=== PATIENT | male | born 1965 | race Hispanic/Latino ===

== ENCOUNTER 2019-02-04 12:44 | Inpatient (IN) | payer MEDICARE ==
[2019-02-04] MEDS ORDERED: NITROSTAT SL ONE (13:08)
[2019-02-04] MEDS ORDERED: BABY ASPIRIN PO ONE (13:08)
[2019-02-04] MEDS ORDERED: MORPHINE IV ONE ×2 (13:10→14:33)
--- NOTE | 2019-02-04 13:29 | Emergency Department Report ---
ED Chest Pain HPI - General Chief Complaint: Chest Pain Stated Complaint: CHEST PAIN Time Seen by Provider: 02/04/19 13:04 Source: patient, EMS Mode of arrival: Stretcher Limitations: No Limitations - History of Present Illness Initial Comments: Mr. Blake is a 53 yo male with hx of CHF and CAD s/p 3 vessel CABG December 2017 presents with chest pain for the past week. Normally, has chest pain once a month or so. Chest pain has been more frequent this week. NO relief with nitroglycerin. CABG performed at [facility]. He lives in [place], [place]. However, he is in the middle of divorce. He is currently staying with his sister who lives near our hospital. He has had cardiac catheterization since CABG. According to his report, no new blockages. But did develop congestive heart failure. No new swelling. I spoke with personal insole tape stitcher uco Dr. Alcides Steven per phone. He has not seen Mr. Blake since [address] PCP [address] Alcides Steven in [place], [place] Complaint: chest pain -: Gradual, week(s) (1) Onset: during rest, during exertion Pain Location: substernal Severity: moderate Severity scale (0 -10): 7 Quality: sharp Consistency: intermittent Improves With: nothing Worsens With: nothing re: nausea, vomting - Related Data Allergies Allergy/AdvReac Type Severity Reaction Status Date / Time No Known Allergies Allergy Unverified 02/04/19 13:02 Heart Score - HEART Score History: Slightly suspicious EKG: Non-specific Age: 45-65 Risk factors: > 3 risk factors or hx of atherosclerotic disease Troponin: < normal limit HEART Score: 4 ED Review of Systems ROS: Stated complaint: CHEST PAIN Other details as noted in HPI Comment: All other systems reviewed and negative Constitutional: denies: fever Eyes: denies: eye discharge Respiratory: denies: cough Cardiovascular: chest pain ED Past Medical Hx - Past Medical History Previous Medical History?: Yes Hx CVA: Yes Hx Congestive Heart Failure: Yes - Surgical History Past Surgical History?: Yes Additional Surgical History: OPEN HEART SURGERY 2018 - Social History Smoking Status: Never Smoker Substance Use Type: Marijuana ED Physical Exam - General Limitations: No Limitations General appearance: alert, in no apparent distress - Head Head exam: Present: atraumatic, normocephalic - Eye Eye exam: Present: normal appearance - ENT ENT exam: Present: mucous membranes moist - Neck Neck exam: Present: normal inspection - Respiratory Respiratory exam: Present: normal lung sounds bilaterally. Absent: respiratory distress, wheezes, rales, rhonchi - Cardiovascular Cardiovascular Exam: Present: regular rate, normal rhythm, other (sternotomy scar). Absent: systolic murmur, diastolic murmur, rubs, gallop - GI/Abdominal GI/Abdominal exam: Present: soft, normal bowel sounds. Absent: distended, tenderness, guarding, rebound - Rectal Rectal exam: Present: deferred - Extremities Exam Extremities exam: Present: normal inspection - Back Exam Back exam: Present: normal inspection - Neurological Exam Neurological exam: Present: alert, oriented X3 - Psychiatric Psychiatric exam: Present: normal affect, depressed - Skin Skin exam: Present: warm, dry, intact, normal color. Absent: rash ED Course Vital Signs 02/04/19 02/04/19 02/04/19 12:57 13:00 13:06 Temperature 99.8 F H Pulse Rate 89 91 H 87 Respiratory 14 13 20 Rate Blood Pressure 157/88 157/88 Blood Pressure [Right] O2 Sat by Pulse 99 98 97 Oximetry 02/04/19 02/04/19 02/04/19 13:12 13:15 13:30 Temperature 99.8 F H Pulse Rate 92 H 89 Respiratory 20 9 L 22 Rate Blood Pressure 153/93 159/93 Blood Pressure 157/88 [Right] O2 Sat by Pulse 98 Oximetry 02/04/19 02/04/19 02/04/19 13:45 14:00 14:15 Temperature Pulse Rate 88 90 91 H Respiratory 20 9 L 21 Rate Blood Pressure 143/83 147/93 160/98 Blood Pressure [Right] O2 Sat by Pulse 95 97 96 Oximetry 02/04/19 02/04/19 02/04/19 14:31 14:40 14:45 Temperature Pulse Rate 92 H 92 H 99 H Respiratory 13 31 H Rate Blood Pressure 174/101 174/104 178/95 Blood Pressure [Right] O2 Sat by Pulse 98 98 Oximetry 02/04/19 15:00 Temperature Pulse Rate 92 H Respiratory Rate Blood Pressure 189/92 Blood Pressure [Right] O2 Sat by Pulse Oximetry ED Medical Decision Making - Lab Data Result diagrams: 02/04/19 13:27 02/04/19 13:27 Laboratory Results - last 24 hr 02/04/19 02/04/19 13:27 13:27 WBC 9.9 RBC 4.97 Hgb 14.1 Hct 41.5 MCV 84 MCH 28 MCHC 34 RDW 14.4 Plt Count 313 Lymph % (Auto) 13.8 Montgomery % (Auto) 4.8 Eos % (Auto) 0.3 Baso % (Auto) 1.0 Lymph # 1.4 Montgomery # 0.5 Eos # 0.0 Baso # 0.1 Seg Neutrophils % 80.1 H Seg Neutrophils # 7.9 H Sodium 143 Potassium 4.0 Chloride 103.3 Carbon Dioxide 23 Anion Gap 21 BUN 11 Creatinine 1.0 Estimated GFR > 60 BUN/Creatinine Ratio 11 Glucose 93 Calcium 9.3 Troponin T < 0.010 - EKG Data 02/04/19 13:30 EKG obtained 1304 Normal sinus rhythm rate 90 beats a minute normal axis nonspecific T wave pattern right bundle branch block prolonged QT interval - Radiology Data Radiology results: image reviewed interpreted by me: No acute process on my interpretation - Medical Decision Making Mr. Blake presents with chest pain, severe. DDX: ACS, stress reaction due to recent divorce. Admitted to depressed mood. Denies suicidal ideation. Has been living with sister for past 3 weeks. I highly appreciate the assistance of the cardiology and hospitalist teams who agreed to continue treatment and evaluation on inpatient unit. Admitted in stable condition. Critical care attestation.: If time is entered above; I have spent that time in minutes in the direct care of this critically ill patient, excluding procedure time. ED Disposition Clinical Impression: Acute coronary syndrome, Hypertensive urgency Disposition: OP ADMIT IP TO THIS HOSP Is pt being admited?: Yes Does the pt Need Aspirin: No Condition: Stable
[2019-02-04 13:40] LABS: Basophils # (Auto) 0.1 K/mm3 (0.0-0.1); Eosinophils % (Auto) 0.3 % (0.0-4.3); Hematocrit 41.5 % (35.5-45.6); Hemoglobin 14.1 gm/dl (11.8-15.2); Lymphocytes # (Auto) 1.4 K/mm3 (1.2-5.4); Lymphocytes % (Auto) 13.8 % (13.4-35.0); Mean Corpuscular HGB Conc 34 % (32-34); Mean Corpuscular Volume 84 fl (84-94); Monocytes # (Auto) 0.5 K/mm3 (0.0-0.8); Monocytes % (Auto) 4.8 % (0.0-7.3); Platelet Count 313 K/mm3 (140-440); Red Blood Count 4.97 M/mm3 (3.65-5.03); Red Cell Distribution Width 14.4 % (13.2-15.2)
[2019-02-04 14:01] LABS: BUN/Creatinine Ratio 11; Blood Urea Nitrogen 11 mg/dL (9-20); Calcium 9.3 mg/dL (8.4-10.2); Hemolysis Index 7
[2019-02-04] MEDS ORDERED: NITRO-BID 2% TP ONE (14:33)
[2019-02-04] MEDS ORDERED: LOPRESSOR IV ONE (14:48)
--- NOTE | 2019-02-04 15:59 | Consultation ---
History of Present Illness Consult date: 02/04/19 Requesting physician: TOSHA BROWN Consult reason: chest pain History of present illness: The pt is a 53 yo male with a past medical history of CAD s/p 3 vessel CABG December 2017, HTN, HF. He is previously unknown to our practice. He presents with c/o chest pain for the past week. He describes his chest pain as an i ntermittent left-sided pressure which radiates into his left arm. No clear aggravating or alleviating factors. NO relief with nitroglycerin. CABG performed at [facility]. He lives in [place], [place]. However, he is in the middle of divorce. He is currently staying with his sister who lives near our hospital. He has had cardiac catheterization since CABG. According to his report, no new blockages. But did develop congestive heart failure. No new swelling. Per chart, ED physician spoke to pt's personal horseradish maker Dr. Alcides Steven per phone - He has not seen Mr. Blake since 2017 prior to CABG. Past History Past Medical History: CAD, hypertension Past Surgical History: CABG Medications and Allergies Allergies Allergy/AdvReac Type Severity Reaction Status Date / Time No Known Allergies Allergy Unverified 02/04/19 13:02 Review of Systems Constitutional: no weight loss, no weight gain, no fever, no chills, no sweats Ears, nose, mouth and throat: no ear pain, no nose pain, no sinus pressure, no sinus pain Respiratory: no cough, no shortness of breath, no dyspnea on exertion, no congestion, no wheezing, no pain on inspiration Gastrointestinal: no abdominal pain, no nausea, no vomiting, no diarrhea, no constipation, no change in bowel habits Genitourinary Male: no dysuria, no hematuria, no flank pain, no discharge, no urinary frequency, no urinary hesitancy Musculoskeletal: no neck stiffness, no neck pain, no shooting arm pain, no arm numbness/tingling, no low back pain, no shooting leg pain Integumentary: no rash, no pruritis, no redness, no sores, no wounds Neurological: no head injury, no paralysis, no weakness, no parathesias, no numbness, no tingling Psychiatric: no anxiety Endocrine: no cold intolerance, no heat intolerance Hematologic/Lymphatic: no easy bruising, no easy bleeding Allergic/Immunologic: no urticaria, no wheezing Physical Examination Vital Signs Pulse Resp Pulse Ox 89 14 99 02/04/19 12:57 02/04/19 12:57 02/04/19 12:57 General appearance: no acute distress HEENT: Positive: PERRL, Normocephaly, Mucus Membranes Moist Neck: Positive: neck supple, trachea midline Cardiac: Positive: Reg Rate and Rhythm, S1/S2 Lungs: Positive: clear to auscultation Neuro: Positive: Grossly Intact Abdomen: Positive: Soft. Negative: Tender Skin: Negative: Rash, Wound Musculoskeletal: No Pain Extremities: Absent: edema Results 02/04/19 13:27 02/04/19 13:27 CBC 02/04/19 Range/Units 13:27 WBC 9.9 (4.5-11.0) K/mm3 RBC 4.97 (3.65-5.03) M/mm3 Hgb 14.1 (11.8-15.2) gm/dl Hct 41.5 (35.5-45.6) % Plt Count 313 (140-440) K/mm3 Lymph # 1.4 (1.2-5.4) K/mm3 Haskell # 0.5 (0.0-0.8) K/mm3 Eos # 0.0 (0.0-0.4) K/mm3 Baso # 0.1 (0.0-0.1) K/mm3 Comprehensive Metabolic Panel 02/04/19 Range/Units 13:27 Sodium 143 (137-145) mmol/L Potassium 4.0 (3.6-5.0) mmol/L Chloride 103.3 (98-107) mmol/L Carbon Dioxide 23 (22-30) mmol/L BUN 11 (9-20) mg/dL Creatinine 1.0 (0.8-1.5) mg/dL Glucose 93 (75-100) mg/dL Calcium 9.3 (8.4-10.2) mg/dL - Imaging and Cardiology Echo: pending EKG: report reviewed, image reviewed EKG interpretations - Telemetry EKG Rhythm: Sinus Rhythm - EKG Sinus rhythms and dysrhythmias: sinus rhythm Assessment and Plan Resume home cardiac regimen. Cont to trend Hammad. Pending Hammad remain negative for AMI overnight, plan for treadmill MPI stress test in AM. NPO after MN. Obtain echo. The patient has been seen in conjunction with Dr. Burrows who agrees with the assessment and plan of care. - Patient Problems (1) Chest pain Current Visit: Yes Status: Acute (2) CAD (coronary artery disease) Current Visit: Yes Status: Acute (3) S/P CABG (coronary artery bypass graft) Current Visit: Yes Status: Acute (4) Hypertensive urgency Current Visit: Yes Status: Acute (5) History of heart failure Current Visit: Yes Status: Chronic
--- NOTE | 2019-02-04 16:28 | History and Physical Report ---
History of Present Illness Chief complaint: My chest hurts, and I get headaches too History of present illness: 53 YO Male with HTN, CHF, CAD S/P CABG presents to ED for evaluation. Pt states that he has experienced pain in his chest over the past 1 week, with worsening symptoms over the past 1 day. Pt states that pain is 7/10, Intermittent, Substernal, Radiates to the left arm, Not worsened with exertion, not relieved with rest, associated with shortness of breath, nausea and diaphoresis, . Pt acknowledges decreased exercise tolerance. EMS notified, and upon arrival the patient was found to be in distress. Pt transported to [facility]. Pt seen and evaluated in ED and found to have symptoms consistent with Stable Angina, as well as Diastolic CHF. Pt admitted to telemetry. Cardiology consulted in ED. CT head ordered in ED and is pending at time of admission. Pt denies fever, chills, palpitations, trauma, skin rash, BRBPR, Unintentional weight loss, Night sweats, prolonged travel/immobility, unilateral leg swelling, calf pain, individual/family history of DVT/PE/Blood Clotting Disorders. No previous admissions to [facility]. No mediation listed at time of admission. Past History Past Medical History: CAD, hypertension Past Surgical History: CABG Social history: . denies: smoking, alcohol abuse, prescription drug abuse Family history: hypertension Medications and Allergies Allergies Allergy/AdvReac Type Severity Reaction Status Date / Time No Known Allergies Allergy Verified 02/04/19 16:38 Review of Systems Constitutional: no weight loss, no weight gain, no fever, no chills Ears, nose, mouth and throat: no ear pain, no ear discharge, no tinnitis, no decreased hearing, no nose pain, no nasal congestion Cardiovascular: chest pain, shortness of breath, dyspnea on exertion, high blood pressure, decreased exercise tolerance, no palpitations, no syncope, no lightheadedness Respiratory: no cough, no cough with sputum, no excessive sputum, no hemoptysis Gastrointestinal: nausea, no abdominal pain, no vomiting, no diarrhea Rectal: no pain, no incontinence Musculoskeletal: no neck stiffness, no neck pain, no shooting arm pain, no arm numbness/tingling Integumentary: no rash, no pruritis, no redness, no sores, no wounds Neurological: no head injury, no transient paralysis, no paralysis, no weakness, no parathesias, no numbness, no tingling Psychiatric: no anxiety, no memory loss, no change in sleep habits, no sleep disturbances, no insomnia, no hypersomnia, no change in appetite, no change in libido Endocrine: no cold intolerance, no heat intolerance, no polyphagia, no excessive thirst, no polydipsia, no polyuria, no nocturia Hematologic/Lymphatic: no easy bruising, no easy bleeding Allergic/Immunologic: no urticaria, no allergic rhinitis, no persistent infections, no anaphylaxis Exam - Constitutional Vitals: Temp Pulse Resp BP Pulse Ox 99.8 F H 92 H 31 H 189/92 98 02/04/19 13:15 02/04/19 15:00 02/04/19 14:45 02/04/19 15:00 02/04/19 14:45 General appearance: Present: mild distress - EENT Eyes: Present: PERRL ENT: hearing intact, clear oral mucosa - Neck Neck: Present: supple, normal ROM - Respiratory Respiratory effort: normal Respiratory: bilateral: CTA - Cardiovascular Heart Sounds: Present: S1 & S2. Absent: rub, click - Extremities Extremities: pulses symmetrical, No edema Peripheral Pulses: within normal limits - Abdominal General gastrointestinal: Present: soft, non-tender, non-distended, normal bowel sounds Male genitourinary: Present: normal - Integumentary Integumentary: Present: clear, warm, dry - Musculoskeletal Musculoskeletal: gait normal, strength equal bilaterally - Psychiatric Psychiatric: appropriate mood/affect, intact judgment & insight - Neurologic Neurologic: CNII-XII intact, moves all extremities Results - Labs CBC & Chem 7: 02/04/19 13:27 02/04/19 16:46 Labs: Abnormal lab results 02/04/19 Range/Units 13:27 Seg Neutrophils % 80.1 H (40.0-70.0) % Seg Neutrophils # 7.9 H (1.8-7.7) K/mm3 Assessment and Plan - Patient Problems (1) Angina at rest Current Visit: Yes Status: Acute Plan to address problem: Admit to telemetry, cardiology consulted in ED, stress test in AM, morphine, supplemental oxygen, nitro, aspirin, bnp, d dimer, (2) CHF (congestive heart failure) Current Visit: Yes Status: Suspected Qualifiers: Heart failure type: diastolic Heart failure chronicity: acute Qualified Code(s): I50.31 - Acute diastolic (congestive) heart failure Plan to address problem: Admit to telemetry: Strict I/O, daily weight, monitor uop q shift, BNP, D dimer, chest x ray, afterload reduction, Echo ordered and pending at time of admission, cardiology consulted. (3) HTN (hypertension) Current Visit: Yes Status: Acute Qualifiers: Hypertension type: essential hypertension Qualified Code(s): I10 - Essential (primary) hypertension Plan to address problem: monitor bp q shift, continue medical management. (4) CAD (coronary artery disease) Current Visit: Yes Status: Acute Qualifiers: Associated angina: with stable angina Plan to address problem: Lipid panel, statin therapy, low cholesterol diet, risk factor reduction (5) Headache Current Visit: Yes Status: Acute Qualifiers: Headache chronicity pattern: acute headache Intractability: not intractable Plan to address problem: CT head ordered, Pending at time of admission, neuro checks. (6) DVT prophylaxis Current Visit: Yes Status: Acute Plan to address problem: SCD to BLE while in bed.
[2019-02-04] MEDS ORDERED: ZOFRAN IV PRN (16:33)
[2019-02-04] MEDS ORDERED: SODIUM CHLORIDE FLUSH SYRINGE 10 ML IV PRN ×2 (16:33→16:35)
[2019-02-04] MEDS ORDERED: PROVENTIL IH PRN (16:33)
[2019-02-04] MEDS ORDERED: APRESOLINE IV PRN (16:42)
[2019-02-04 17:37] LABS: BUN/Creatinine Ratio 18; Blood Urea Nitrogen 14 mg/dL (9-20); Calcium 8.9 mg/dL (8.4-10.2); Hemolysis Index 22
[2019-02-04 17:47] LABS: Free T4 (Free Thyroxine) 1.03 ng/dL (0.76-1.46)
--- NOTE | 2019-02-04 18:19 | XRay Report ---
PROCEDURE: XR CHEST 1V AP TECHNIQUE: Single AP chest HISTORY: Chest Pain COMPARISONS: FINDINGS: Cardiac and mediastinal contours are unremarkable. Sternotomy wires are noted. No focal pulmonary inf iltrate identified. No pleural fluid collection seen. Pulmonary vasculature is unremarkable. IMPRESSION: No acute abnormality identified in the chest. This document is electronically signed by Ming Tam MD., February 04 2019 06:16:54 PM ET
--- NOTE | 2019-02-04 18:26 | Cat Scan Report ---
PROCEDURE: CT head without contrast. TECHNIQUE: Computerized tomography of the head was performed without contrast material. CT DOSE LENGTH PRODUCT: 1050.26 mGycm HISTORY: Headache. COMPARISONS: None. FINDINGS: The ventricles are normal in size. The mcdonough matter and white matter appear normal. There are no mass lesions. There is no intracranial hemorrhage. The calvarium appears intact. The mastoid air cells and visualized paranasal sinuses are well aerated. IMPRESSION: Normal study. This document is electronically signed by Farza Yeager MD., February 04 2019 06:24:15 PM ET
[2019-02-04] MEDS: MORPHINE IV PRN ×2 (19:47→23:51)
[2019-02-04] MEDS ORDERED: MORPHINE ONE (19:48)
[2019-02-04] MEDS: SODIUM CHLORIDE FLUSH SYRINGE 10 ML IV SCH (23:55)
[2019-02-05] MEDS: MORPHINE IV PRN ×4 (04:24→19:54)
[2019-02-05 06:36] LABS: Chol/HDL Ratio 4.91 %
[2019-02-05] MEDS ORDERED: LEXISCAN IV ONE ×2 (07:59→08:34)
[2019-02-05] MEDS: SODIUM CHLORIDE FLUSH SYRINGE 10 ML IV SCH ×2 (11:37→21:55)
--- NOTE | 2019-02-05 12:00 | Treadmill Report ---
PROCEDURE: Nuclear perfusion study. REASON FOR STUDY: Chest pain, shortness of breath. IMAGING PROTOCOL: The patient received 10 mCi of Technetium 99m Tetrofosmin for resting image and 28 mCi of Technetium 99m Tetrofosmin for stress imaging. The imaging for the whole procedure was completed 30-90 minutes following the initial injection of Technetium 99m Tetrofosmin. The SPECT imaging in the 180 degree arc was performed in the right anterior oblique projection. Computerized reconstruction of the images was performed for analysis. IMAGING RESULTS: Normal cavity size from stress to rest. Normal distribution of radionuclide in the anterior, inferior, septal, and apical regions. Gated SPECT, EF 62% with no wall motion abnormality. The patient infused Lexiscan with no EKG changes. The patient tried initially to walk, but stopped secondary to shortness of breath after just 2 minutes, but with no EKG changes or exaggerated BP. SUMMARY: 1. Negative Lexiscan EKG. 2. Poor exercise capacity. 3. Normal rest and stress myocardial perfusion scan. No significant ischemia. No wall motion abnormality. Gated SPECT, EF 62%. JOB# [id number] MARIO/MYA
--- NOTE | 2019-02-05 13:12 | Progress Note ---
Assessment and Plan Chest pain possible secondary GI Hypertension elevated Hyperlipidemia [place] breath with exertion Coronary disease status post bypass Recommended for cardiovascular point of view to restart beta tatyana will start aspirin and statin nitrates will give the patient also a Protonix as patient's chest pain may be secondary to GI if stable am and there and discharged Subjective Date of service: 02/05/19 Principal diagnosis: chest pain and sob Interval history: Patient's chest pain still present Objective Vital Signs Temp Pulse Resp BP BP Pulse Ox 02/05/19 11:32 77 166/89 02/05/19 10:04 163/90 02/05/19 10:02 181/88 02/05/19 10:00 192/93 02/05/19 09:58 192/101 02/05/19 09:57 147/94 02/05/19 09:56 179/90 02/05/19 09:46 165/88 02/05/19 08:11 97.7 F 77 20 166/89 96 02/05/19 05:08 98.0 F 72 18 150/89 97 02/04/19 23:51 20 02/04/19 23:45 98.0 F 77 18 166/87 99 02/04/19 21:33 97.8 F 76 18 163/92 95 02/04/19 20:41 79 02/04/19 20:21 75 19 132/74 95 02/04/19 20:11 73 14 133/77 97 02/04/19 20:01 76 20 133/77 94 02/04/19 19:51 81 21 144/84 96 02/04/19 19:41 79 18 143/82 96 02/04/19 19:37 97.9 F 02/04/19 19:30 79 19 143/82 96 02/04/19 19:15 98.2 F 91 H 16 143/75 134/79 98 02/04/19 19:00 85 23 133/81 96 02/04/19 18:45 85 23 133/81 95 02/04/19 18:30 85 24 135/74 95 02/04/19 18:15 95 H 18 152/78 97 02/04/19 18:00 89 17 143/77 97 02/04/19 17:45 99 H 16 143/85 94 02/04/19 17:30 74 16 143/85 97 02/04/19 17:15 80 14 151/87 95 02/04/19 17:00 76 17 151/87 97 02/04/19 16:45 73 13 160/82 94 02/04/19 16:30 76 12 155/87 96 02/04/19 16:15 81 24 148/87 96 02/04/19 16:00 71 13 149/93 96 02/04/19 15:45 83 17 132/78 96 02/04/19 15:31 80 20 136/76 96 02/04/19 15:15 77 9 L 166/91 96 02/04/19 15:00 77 16 153/94 97 02/04/19 14:45 99 H 31 H 178/95 98 02/04/19 14:40 92 H 174/104 02/04/19 14:31 92 H 13 174/101 98 02/04/19 14:15 91 H 21 160/98 96 02/04/19 14:00 90 9 L 147/93 97 02/04/19 13:45 88 20 143/83 95 02/04/19 13:30 89 22 159/93 02/04/19 13:15 99.8 F H 92 H 9 L 153/93 157/88 98 02/04/19 13:12 20 - Physical Examination General: No Apparent Distress HEENT: Positive: PERRL, Normocephaly, Mucus Membranes Moist Neck: Positive: neck supple, trachea midline Cardiac: Positive: Reg Rate and Rhythm Lungs: Positive: clear to auscultation Neuro: Positive: Grossly Intact Abdomen: Positive: Soft. Negative: Tender Skin: Negative: Rash, Wound Musculoskeletal: No Pain Extremities: Absent: edema - Labs and Meds Lipids 02/05/19 Range/Units 05:23 Triglycerides 124 (2-149) mg/dL Cholesterol 226 H (50-199) mg/dL HDL Cholesterol 46 (40-59) mg/dL Cholesterol/HDL Ratio 4.91 % CBC 02/04/19 Range/Units 13:27 WBC 9.9 (4.5-11.0) K/mm3 RBC 4.97 (3.65-5.03) M/mm3 Hgb 14.1 (11.8-15.2) gm/dl Hct 41.5 (35.5-45.6) % Plt Count 313 (140-440) K/mm3 Lymph # 1.4 (1.2-5.4) K/mm3 Pender # 0.5 (0.0-0.8) K/mm3 Eos # 0.0 (0.0-0.4) K/mm3 Baso # 0.1 (0.0-0.1) K/mm3 Comprehensive Metabolic Panel 02/04/19 02/04/19 Range/Units 13:27 16:46 Sodium 143 140 (137-145) mmol/L Potassium 4.0 4.1 (3.6-5.0) mmol/L Chloride 103.3 103.4 (98-107) mmol/L Carbon Dioxide 23 23 (22-30) mmol/L BUN 11 14 (9-20) mg/dL Creatinine 1.0 0.8 (0.8-1.5) mg/dL Glucose 93 97 (75-100) mg/dL Calcium 9.3 8.9 (8.4-10.2) mg/dL - Imaging and Cardiology EKG: report reviewed, image reviewed Pharmacologic stress test: report reviewed (normal myocardial perfusion and significant ischemia) - Telemetry EKG Rhythm: Sinus Rhythm - EKG Sinus rhythms and dysrhythmias: sinus rhythm
--- NOTE | 2019-02-05 15:37 | Progress Note ---
Assessment and Plan Assessment and plan: --Atypical chest pain; probably noncardiac Stress test negative, continue current management Cardiology added PPI --Gastroesophageal reflux disease; Protonix --History of coronary artery disease status post CABG; Cardiac medications optimized by cardiology, advised compliance with medications --Hypertensive urgency upon admission; Blood pressures reasonable control, continue current antihypertensives --DVT prophylaxis; Lovenox Closely monitor the patient and adjust management as needed Cardiology evaluation and recommendations noted and appreciated Possible discharge in 1-2 days if stable We'll advise outpatient GI evaluation if he experiences recurrent atypical chest pain History Interval history: Patient seen and examined medical records reviewed Admitted with chest pain, underwent stress test today,negative for reversible ischemia Patient feels better Denies any chest pain or shortness of breath Alert awake oriented 3, Vital signs reviewed Hospitalist Physical - Constitutional Vitals: Temp Pulse Resp BP Pulse Ox 98.3 F 101 H 20 155/88 97 02/05/19 11:55 02/05/19 11:55 02/05/19 11:55 02/05/19 11:55 02/05/19 11:55 General appearance: Present: no acute distress, well-nourished - EENT Eyes: Present: PERRL, EOM intact - Neck Neck: Present: supple, normal ROM - Respiratory Respiratory effort: normal Respiratory: bilateral: diminished, negative: rales, rhonchi, wheezing - Cardiovascular Rhythm: regular Heart Sounds: Present: S1 & S2 - Extremities Extremities: no ischemia, No edema - Abdominal General gastrointestinal: soft, non-tender, non-distended, normal bowel sounds - Integumentary Integumentary: Present: clear, warm - Psychiatric Psychiatric: appropriate mood/affect, cooperative - Neurologic Neurologic: CNII-XII intact, moves all extremities Results - Labs CBC & Chem 7: 02/04/19 13:27 02/04/19 16:46 Labs: Laboratory Last Values WBC 9.9 K/mm3 (4.5-11.0) 02/04/19 13:27 RBC 4.97 M/mm3 (3.65-5.03) 02/04/19 13:27 Hgb 14.1 gm/dl (11.8-15.2) 02/04/19 13:27 Hct 41.5 % (35.5-45.6) 02/04/19 13:27 MCV 84 fl (84-94) 02/04/19 13:27 MCH 28 pg (28-32) 02/04/19 13:27 MCHC 34 % (32-34) 02/04/19 13:27 RDW 14.4 % (13.2-15.2) 02/04/19 13:27 Plt Count 313 K/mm3 (140-440) 02/04/19 13:27 Lymph % (Auto) 13.8 % (13.4-35.0) 02/04/19 13:27 [place]ardo % (Auto) 4.8 % (0.0-7.3) 02/04/19 13:27 Eos % (Auto) 0.3 % (0.0-4.3) 02/04/19 13:27 Baso % (Auto) 1.0 % (0.0-1.8) 02/04/19 13:27 Lymph # 1.4 K/mm3 (1.2-5.4) 02/04/19 13:27 [place]ardo # 0.5 K/mm3 (0.0-0.8) 02/04/19 13:27 Eos # 0.0 K/mm3 (0.0-0.4) 02/04/19 13:27 Baso # 0.1 K/mm3 (0.0-0.1) 02/04/19 13:27 Seg Neutrophils % 80.1 % (40.0-70.0) H 02/04/19 13:27 Seg Neutrophils # 7.9 K/mm3 (1.8-7.7) H 02/04/19 13:27 D-Dimer 195.82 ng/mlDDU (0-234) 02/04/19 16:46 Sodium 140 mmol/L (137-145) 02/04/19 16:46 Potassium 4.1 mmol/L (3.6-5.0) 02/04/19 16:46 Chloride 103.4 mmol/L (98-107) 02/04/19 16:46 Carbon Dioxide 23 mmol/L (22-30) 02/04/19 16:46 Anion Gap 18 mmol/L 02/04/19 16:46 BUN 14 mg/dL (9-20) 02/04/19 16:46 Creatinine 0.8 mg/dL (0.8-1.5) 02/04/19 16:46 Estimated GFR > 60 ml/min 02/04/19 16:46 BUN/Creatinine Ratio 18 % 02/04/19 16:46 Glucose 97 mg/dL (75-100) 02/04/19 16:46 Calcium 8.9 mg/dL (8.4-10.2) 02/04/19 16:46 Troponin T < 0.010 ng/mL (0.00-0.029) 02/04/19 23:32 NT-Pro-B Natriuret Pep 183.8 pg/mL (0-900) 02/04/19 16:46 Triglycerides 124 mg/dL (2-149) 02/05/19 05:23 Cholesterol 226 mg/dL (50-199) H 02/05/19 05:23 LDL Cholesterol Direct 169 mg/dL (50-130) H 02/05/19 05:23 HDL Cholesterol 46 mg/dL (40-59) 02/05/19 05:23 Cholesterol/HDL Ratio 4.91 % 02/05/19 05:23 TSH 0.156 mlU/mL (0.270-4.200) L 02/04/19 16:46 Free T4 1.03 ng/dL (0.76-1.46) 02/04/19 16:46 Active Medications - Current Medications Current Medications: Generic Name Dose Route Start Last Admin Trade Name Freq PRN Reason Stop Dose Admin Acetaminophen 650 mg 02/04/19 16:33 Tylenol PO Q4H PRN Pain MILD(1-3)/Fever >100.5/CESPEDES Albuterol 2.5 mg 02/04/19 16:33 Proventil IH Q4HRT PRN Shortness Of Breath Atorvastatin Calcium 40 mg 02/05/19 22:00 Lipitor PO QHS [facility] Hydralazine HCl 10 mg 02/04/19 16:42 02/05/19 11:32 Apresoline IV 10 mg Q6HR PRN Administration HTN SYS >165 Isosorbide Mononitrate 30 mg 02/05/19 13:00 Imdur PO QDAY [facility] Losartan Potassium 50 mg 02/05/19 13:00 Cozaar PO QDAY [facility] Metoprolol Tartrate 50 mg 02/05/19 22:00 Lopressor PO BID [facility] Morphine Sulfate 2 mg 02/04/19 16:33 02/05/19 11:29 Morphine IV 2 mg Q4H PRN Administration Pain, Moderate (4-6) Ondansetron HCl 4 mg 02/04/19 16:33 Zofran IV Q8H PRN Nausea And Vomiting Pantoprazole Sodium 40 mg 02/05/19 13:00 Protonix PO QDAY DOMITILA Sodium Chloride 10 ml 02/04/19 16:33 Sodium Chloride Flush Syringe 10 Ml IV PRN PRN LINE FLUSH Sodium Chloride 10 ml 02/04/19 22:00 02/05/19 11:37 Sodium Chloride Flush Syringe 10 Ml IV 10 ml BID DOMITILA Administration Sodium Chloride 10 ml 02/04/19 16:35 Sodium Chloride Flush Syringe 10 Ml IV PRN PRN LINE FLUSH
[2019-02-05] MEDS: COZAAR PO SCH (16:02)
[2019-02-05] MEDS: IMDUR PO SCH (16:02)
[2019-02-05] MEDS: TYLENOL PO PRN (19:53)
[2019-02-05] MEDS: PROTONIX PO SCH (19:54)
[2019-02-05] MEDS: LOPRESSOR PO SCH (21:54)
[2019-02-05] MEDS ORDERED: LOVENOX SUB-Q SCH (22:00)
[2019-02-06] MEDS: MORPHINE IV PRN ×3 (00:19→10:27)
[2019-02-06 07:21] LABS: BUN/Creatinine Ratio 16; Blood Urea Nitrogen 11 mg/dL (9-20); Calcium 9.2 mg/dL (8.4-10.2); Hemolysis Index 10
[2019-02-06 07:31] LABS: Free T4 (Free Thyroxine) 1.14 ng/dL (0.76-1.46)
[2019-02-06] MEDS: TYLENOL PO PRN (08:15)
[2019-02-06 08:40] VITALS: BP 137/76
[2019-02-06] MEDS ORDERED: BABY ASPIRIN PO SCH (10:00)
[2019-02-06] MEDS: PROTONIX PO SCH (10:27)
[2019-02-06] MEDS: SODIUM CHLORIDE FLUSH SYRINGE 10 ML IV SCH (10:27)
[2019-02-06] MEDS: LOPRESSOR PO SCH (10:27)
[2019-02-06] MEDS: COZAAR PO SCH (10:27)
[2019-02-06] MEDS: IMDUR PO SCH (10:27)
--- NOTE | 2019-02-06 11:51 | Discharge Summary ---
Providers - Providers Date of Admission: 02/04/19 16:33 Date of discharge: 02/06/19 Attending physician: OLIVIA CEJA 02/04/19 Consult to Cardiac Rehabilitation [CONS] Routine Reason For Exam: Phase I [facility] Reason for admission: worsening shortness of breath and chest pain Condition: Stable Pertinent studies: Chest x-ray; no acute abnormality CT head; no acute abnormality Stress test; negative Lexiscan EKG, poor exercise capacity Normal myocardial perfusion scan, no ischemia, EF 62% Hospital course: 53-year-old male patient with significant history of coronary artery disease status post 3 vessel CABG in 2017 hypertension congestive heart failure was admitted through emergency room with chest pain, Patient was symptomatically managed evaluated by cardiology and underwent stress test which was negative for reversible ischemia Patient's medications were optimized today he is comfortable no new complaints vital signs stable Physical examination is unremarkable, Patient is cleared by cardiology hemodynamically stable for discharge Advised to follow-up with his private personal yard specialist Dr. Alcides Steven per schedule Discharge diagnosis; --Atypical chest pain; probably noncardiac Stress test negative, continue current management Cardiology added PPI --Gastroesophageal reflux disease; Protonix --History of coronary artery disease status post CABG; Cardiac medications optimized by cardiology, advised compliance with medications --Hypertensive urgency upon admission; Blood pressures reasonable control, continue current antihypertensives --Dyslipidemia; continue statin and low cholesterol diet --Medical noncompliance; patient advised to comply with medications and diet follow-up visits Verbalized understanding --DVT prophylaxis; Lovenox Cleared by cardiology for discharge and follow-up as outpatient . Patient is hemodynamically and clinically stable at discharge Disposition: [id number] TO HOME OR SELFCARE Time spent for discharge: 34 min Core Measure Documentation - Palliative Care Palliative Care/ Comfort Measures: Not Applicable - Core Measures Any of the following diagnoses?: none Exam - Constitutional Vitals: Temp Pulse Resp BP Pulse Ox 98.3 F 85 20 137/76 99 02/06/19 08:40 02/06/19 08:40 02/06/19 08:40 02/06/19 08:40 02/06/19 08:40 General appearance: Present: no acute distress, well-nourished - EENT Eyes: Present: PERRL, EOM intact - Neck Neck: Present: supple, normal ROM - Respiratory Respiratory effort: normal Respiratory: bilateral: diminished, negative: rales, rhonchi, wheezing - Cardiovascular Rhythm: regular Heart Sounds: Present: S1 & S2 - Extremities Extremities: no ischemia, No edema - Abdominal General gastrointestinal: Present: soft, non-tender, non-distended, normal bowel sounds - Integumentary Integumentary: Present: clear, warm - Musculoskeletal Musculoskeletal: strength equal bilaterally - Psychiatric Psychiatric: appropriate mood/affect, cooperative - Neurologic Neurologic: CNII-XII intact, moves all extremities Plan Activity: advance as tolerated Diet: other (cardiac diet) Additional Instructions: Strongly advised to comply with medications and diet and follow-up visits. Advised to follow private yard specialist and PMD within 1 week [facility] Care Provider[facility] - 3-5 Days BREEZY BELTRÁN MD [Staff Physician] - 7 Days Forms: Discharge Signature Page Prescriptions: Aspirin [Aspirin BABY CHEW TAB] 81 mg PO QDAY #30 tab.chew Losartan [Cozaar] 50 mg PO QDAY #30 tablet ISOSORBIDE MONOnitrate [Imdur ER] 30 mg PO QDAY #30 tablet AtorvaSTATin [Lipitor] 40 mg PO QHS #30 tablet Metoprolol [Lopressor TAB] 50 mg PO BID #60 tablet Pantoprazole [Protonix TAB] 40 mg PO QDAY #30 tablet
--- NOTE | 2019-02-06 12:22 | Progress Note ---
Assessment and Plan Chest pain possible secondary GI Hypertension elevated Hyperlipidemia [place] breath with exertion Coronary disease status post bypass Recommended patient's chest pain is atypical( in view of negative cardiac enzymes no change in the character of discomfort and negative stress test) in nature advised to continue current medications and follow up in office discussed in detail with the patient about his chronic discomfort he has a lack of follow- up need to be more follow-up given patient's cardiac condition patient agreed continue current medications and follow-up this week Subjective Date of service: 02/06/19 Principal diagnosis: chest pain and sob Interval history: pt has chest pain and back pain Objective Vital Signs Temp Pulse Resp BP Pulse Ox 02/06/19 08:40 98.3 F 85 20 137/76 99 02/06/19 07:31 85 02/06/19 05:01 18 02/06/19 04:00 98.0 F 97 H 12 132/77 98 02/05/19 23:09 98.4 F 87 12 102/62 98 02/05/19 20:30 95 02/05/19 20:20 20 02/05/19 20:00 97 H 02/05/19 19:15 98.5 F 95 H 12 120/79 95 02/05/19 16:04 98.0 F 99 H 20 159/90 97 - Physical Examination General: No Apparent Distress HEENT: Positive: PERRL, Normocephaly, Mucus Membranes Moist Neck: Positive: neck supple, trachea midline Cardiac: Positive: Reg Rate and Rhythm Lungs: Positive: clear to auscultation Neuro: Positive: Grossly Intact Abdomen: Positive: Soft. Negative: Tender Skin: Negative: Rash, Wound Musculoskeletal: No Pain Extremities: Absent: edema - Labs and Meds Comprehensive Metabolic Panel 02/06/19 Range/Units 05:19 Sodium 140 (137-145) mmol/L Potassium 4.0 (3.6-5.0) mmol/L Chloride 104.8 (98-107) mmol/L Carbon Dioxide 22 (22-30) mmol/L BUN 11 (9-20) mg/dL Creatinine 0.7 L (0.8-1.5) mg/dL Glucose 97 (75-100) mg/dL Calcium 9.2 (8.4-10.2) mg/dL - Imaging and Cardiology EKG: report reviewed, image reviewed Echo: pending - EKG Sinus rhythms and dysrhythmias: sinus rhythm
== END 2019-02-06 14:27 | disposition home or self-care (01) | DRG 391 ==
LOC: ED 12:44 → 4A 16:33
PROVIDERS: ADMIT Internal Medicine; ATTEND Internal Medicine
DX: K21.9 Gastro-esophageal reflux disease without esophagitis (principal); I50.31 Acute diastolic (congestive) heart failure; I11.0 Hypertensive heart disease with heart failure; I16.0 Hypertensive urgency; F12.90 Cannabis use, unspecified, uncomplicated; I25.118 Atherosclerotic heart disease of native coronary artery with other forms of angina pectoris; Z95.1 Presence of aortocoronary bypass graft; Z86.73 Personal history of transient ischemic attack (TIA), and cerebral infarction without residual deficits; Z82.49 Family history of ischemic heart disease and other diseases of the circulatory system; Z91.14 Patient's other noncompliance with medication regimen
CPT/HCPCS: 36415; 70450; 71045; 78452; 80048; 80061; 83880; 84439; 84443; 84484; 85025; 85379; 87116; 93005; 93010; 93017; G0378; A9270-GY; A9502; J0360; J1650; J2270; J2785

== ENCOUNTER 2019-03-09 10:16 | Observation (INO) | payer MEDICARE ==
[2019-03-09 10:57] LABS: Basophils # (Auto) 0.1 K/mm3 (0.0-0.1); Basophils % (Auto) 1.4 % (0.0-1.8); Eosinophils # (Auto) 0.1 K/mm3 (0.0-0.4); Eosinophils % (Auto) 0.7 % (0.0-4.3); Hematocrit 41.9 % (35.5-45.6); Hemoglobin 14.3 gm/dl (11.8-15.2); Lymphocytes # (Auto) 1.3 K/mm3 (1.2-5.4); Lymphocytes % (Auto) 17.2 % (13.4-35.0); Mean Corpuscular HGB Conc 34 % (32-34); Mean Corpuscular Volume 85 fl (84-94); Monocytes # (Auto) 0.4 K/mm3 (0.0-0.8); Monocytes % (Auto) 4.9 % (0.0-7.3); Platelet Count 277 K/mm3 (140-440); Red Blood Count 4.94 M/mm3 (3.65-5.03); Red Cell Distribution Width 14.6 % (13.2-15.2)
--- NOTE | 2019-03-09 11:11 | Emergency Department Report ---
ED Chest Pain HPI - General Chief Complaint: Chest Pain Stated Complaint: SOB/CHEST PAINS Time Seen by Provider: 03/09/19 11:09 Source: patient Mode of arrival: Ambulatory Limitations: No Limitations - History of Present Illness Initial Comments: She is a 53-year-old male Emergency with complaints of chest pain or shortness of breath. Patient states that chest pain shortness of breath started approximately 2 hours ago. Patient states that the pain is worse with exertion and better with rest. Patient states she has a history of hypertension, CVA, CHF. She states he has not been compliant with his CHF diet. Patient states he's had open heart surgery in 2018. She denies abdominal pain. Patient denies reflux. Patient denies fever and chills. Patient denies headache. Patient denies blurred vision. MD Complaint: chest pain -: Sudden Onset: during rest Pain Location: substernal, left chest Pain Radiation: none Severity: severe Severity scale (0 -10): 8 Quality: tightness, aching Consistency: constant Improves With: rest Worsens With: exertion re: dyspnea. denies: nausea, vomting, diaphoresis, sense of impending doom Other Symptoms: leg swelling. denies: cough, fever, syncope, rash, acid taste in mouth, palpitations, burping Treatments Prior to Arrival: aspirin Aspirin use within the Past 7 Days: (1) Yes - Related Data On Oral Contraceptives: No Home Medications Medication Instructions Recorded Confirmed Last Taken Gabapentin [Neurontin] 800 mg PO TID 02/06/19 02/06/19 Unknown Hydrocodone-Acetamin 10-325 mg 10 - 325 mg PO QID 02/06/19 02/06/19 Unknown tiZANidine [Zanaflex] 4 mg PO QHS 02/06/19 02/06/19 Unknown Previous Rx's Medication Instructions Recorded Last Taken Type Aspirin [Aspirin BABY CHEW TAB] 81 mg PO QDAY #30 tab.chew 02/06/19 Unknown Rx AtorvaSTATin [Lipitor] 40 mg PO QHS #30 tablet 02/06/19 Unknown Rx ISOSORBIDE MONOnitrate [Imdur ER] 30 mg PO QDAY #30 tablet 02/06/19 Unknown Rx Losartan [Cozaar] 50 mg PO QDAY #30 tablet 02/06/19 Unknown Rx Metoprolol [Lopressor TAB] 50 mg PO BID #60 tablet 02/06/19 Unknown Rx Pantoprazole [Protonix TAB] 40 mg PO QDAY #30 tablet 02/06/19 Unknown Rx Allergies Allergy/AdvReac Type Severity Reaction Status Date / Time No Known Allergies Allergy Verified 02/04/19 16:38 Heart Score - HEART Score History: Moderately suspicious EKG: Normal Age: 45-65 Risk factors: > 3 risk factors or hx of atherosclerotic disease Troponin: < normal limit HEART Score: 4 ED Review of Systems ROS: Stated complaint: SOB/CHEST PAINS Other details as noted in HPI Constitutional: denies: chills, fever Eyes: denies: eye pain, eye discharge, vision change ENT: denies: ear pain, throat pain Respiratory: shortness of breath. denies: cough, wheezing Cardiovascular: chest pain, edema. denies: palpitations Endocrine: no symptoms reported Gastrointestinal: denies: abdominal pain, nausea, diarrhea Genitourinary: denies: urgency, dysuria Musculoskeletal: denies: back pain, joint swelling, arthralgia Skin: denies: rash, lesions Neurological: denies: headache, weakness, paresthesias Psychiatric: denies: anxiety, depression Hematological/Lymphatic: denies: easy bleeding, easy bruising ED Past Medical Hx - Past Medical History Previous Medical History?: Yes Hx Hypertension: Yes Hx CVA: Yes Hx Congestive Heart Failure: Yes Hx Diabetes: No Hx Asthma: No Hx COPD: No - Surgical History Past Surgical History?: Yes Additional Surgical History: OPEN HEART SURGERY 2018 - Family History Family history: no significant - Social History Smoking Status: Never Smoker Substance Use Type: Marijuana - Medications Home Medications: Home Medications Medication Instructions Recorded Confirmed Last Taken Type Aspirin [Aspirin BABY CHEW TAB] 81 mg PO QDAY #30 tab.chew 02/06/19 Unknown Rx AtorvaSTATin [Lipitor] 40 mg PO QHS #30 tablet 02/06/19 Unknown Rx Gabapentin [Neurontin] 800 mg PO TID 02/06/19 02/06/19 Unknown History Hydrocodone-Acetamin 10-325 mg 10 - 325 mg PO QID 02/06/19 02/06/19 Unknown History ISOSORBIDE MONOnitrate [Imdur ER] 30 mg PO QDAY #30 tablet 02/06/19 Unknown Rx Losartan [Cozaar] 50 mg PO QDAY #30 tablet 02/06/19 Unknown Rx Metoprolol [Lopressor TAB] 50 mg PO BID #60 tablet 02/06/19 Unknown Rx Pantoprazole [Protonix TAB] 40 mg PO QDAY #30 tablet 02/06/19 Unknown Rx tiZANidine [Zanaflex] 4 mg PO QHS 02/06/19 02/06/19 Unknown History ED Physical Exam - General Limitations: No Limitations General appearance: alert, in no apparent distress - Head Head exam: Present: atraumatic, normocephalic - Eye Eye exam: Present: normal appearance - ENT ENT exam: Present: mucous membranes moist - Neck Neck exam: Present: normal inspection - Respiratory Respiratory exam: Present: normal lung sounds bilaterally. Absent: respiratory distress - Cardiovascular Cardiovascular Exam: Present: regular rate, normal rhythm. Absent: systolic murmur, diastolic murmur, rubs, gallop - GI/Abdominal GI/Abdominal exam: Present: soft, normal bowel sounds - Rectal Rectal exam: Present: deferred - Extremities Exam Extremities exam: Present: normal inspection - Back Exam Back exam: Present: normal inspection - Neurological Exam Neurological exam: Present: alert, oriented X3 - Psychiatric Psychiatric exam: Present: normal affect, normal mood - Skin Skin exam: Present: warm, dry, intact, normal color. Absent: rash ED Course Vital Signs 03/09/19 03/09/19 03/09/19 10:27 12:04 12:06 Temperature 98.0 F 98.2 F Pulse Rate 98 H 82 Respiratory 18 14 14 Rate Blood Pressure 146/83 Blood Pressure 143/85 [Left] O2 Sat by Pulse 99 100 10 L Oximetry - Reevaluation(s) Reevaluation #1: discussed plan of care with patient. Patient agrees with plan of care and admission. Discussed all results with patient. Patient was admitted into the hospital service. 03/09/19 12:10 - Consultations Consultation #1: Discussed case with hospitalist. Hospitalist to admit patient. Bridge orders placed to telemetry. 03/09/19 12:18 ED Medical Decision Making - Lab Data Result diagrams: 03/09/19 10:47 03/09/19 10:47 - EKG Data -: EKG Interpreted by Me EKG shows normal: sinus rhythm, axis, intervals, QRS complexes, ST-T waves Rate: normal - Radiology Data Radiology results: report reviewed, image reviewed interpreted by me: Acute findings on chest x-ray. Sternotomy wires noted ROUTINE CHEST, TWO VIEWS: HISTORY: Chest pain. Previous CABG changes are suspected in The trachea, heart, mediastinal contour, lung kline and bony thorax are unremarkable. No change since 02/04/19. IMPRESSION: Unremarkable chest x-ray. - Medical Decision Making Patient is a 53-year-old male that presents emergency room with complaints of chest pain or shortness of breath. Patient was admitted to the hospitalist service for further evaluation and treatment and observation. Patient has a significant coronary history. Patient has high risk factors. Patient's initial cardiac workup negative. Patient's chest x-ray negative. Patient's EKG unremarkable. - Differential Diagnosis chest pain. Shortness breath. chf. ACS. Critical Care Time: Yes Critical care attestation.: If time is entered above; I have spent that time in minutes in the direct care of this critically ill patient, excluding procedure time. Critical Care Time: 35 minutes ED Disposition Clinical Impression: SOB (shortness of breath), History of heart failure Chest pain Qualifiers: Chest pain type: unspecified Qualified Code(s): R07.9 - Chest pain, unspecified Disposition: DC-09 OP ADMIT IP TO THIS HOSP Is pt being admited?: Yes Does the pt Need Aspirin: No Condition: Critical Time of Disposition: 12:18
[2019-03-09 11:15] LABS: BUN/Creatinine Ratio 15; Blood Urea Nitrogen 12 mg/dL (9-20); Calcium 9.5 mg/dL (8.4-10.2); Hemolysis Index 34
--- NOTE | 2019-03-09 11:17 | XRay Report ---
ROUTINE CHEST, TWO VIEWS: HISTORY: Chest pain. Previous CABG changes are suspected in The trachea, heart, mediastinal contour, lung kline and bony thorax are unremarkable. No change since 02/04/19. IMPRESSION: Unremarkable chest x-ray.
[2019-03-09 11:34] LABS: Alanine Aminotransferase 19 units/L (7-56); Albumin 4.5 g/dL (3.9-5)
[2019-03-09 11:36] LABS: Bilirubin,Direct < 0.2 mg/dL (0-0.2)
[2019-03-09] MEDS ORDERED: ASPIRIN PO ONE (12:17)
[2019-03-09] MEDS ORDERED: MORPHINE ONE (13:11)
[2019-03-09] MEDS ORDERED: MORPHINE IV ONE (13:29)
[2019-03-09 16:05] LABS: Creatine Kinase MB 1.3 ng/mL (0.0-4.0)
[2019-03-09 17:47] VITALS: BP 127/89
== END 2019-03-09 17:47 | disposition home or self-care (01) ==
LOC: ED 10:16 → 4A 12:24
PROVIDERS: ADMIT Internal Medicine; ATTEND Internal Medicine
DX: R07.2 Precordial pain (principal); R06.02 Shortness of breath; I11.0 Hypertensive heart disease with heart failure; I50.9 Heart failure, unspecified; Z86.73 Personal history of transient ischemic attack (TIA), and cerebral infarction without residual deficits
CPT/HCPCS: 36415; 71046; 80048; 80076; 82550; 82553; 83880; 84484; 85025; 93005; 93010; 96374; 99291; G0378; J2270

== ENCOUNTER 2019-04-29 02:50 | Emergency (ER) | payer MEDICARE ==
[2019-04-29 04:02] LABS: BUN/Creatinine Ratio 16; Blood Urea Nitrogen 14 mg/dL (9-20); Calcium 8.7 mg/dL (8.4-10.2); Hemolysis Index 17
[2019-04-29 04:06] LABS: Basophils # (Auto) 0.1 K/mm3 (0.0-0.1); Basophils % (Auto) 1.4 % (0.0-1.8); Eosinophils # (Auto) 0.3 K/mm3 (0.0-0.4); Eosinophils % (Auto) 4.5 % (0.0-4.3); Hematocrit 36.4 % (35.5-45.6); Hemoglobin 12.6 gm/dl (11.8-15.2); Lymphocytes # (Auto) 2.1 K/mm3 (1.2-5.4); Lymphocytes % (Auto) 32.1 % (13.4-35.0); Mean Corpuscular HGB Conc 35 % (32-34); Mean Corpuscular Volume 84 fl (84-94); Monocytes # (Auto) 0.6 K/mm3 (0.0-0.8); Monocytes % (Auto) 8.6 % (0.0-7.3); Platelet Count 194 K/mm3 (140-440); Red Blood Count 4.34 M/mm3 (3.65-5.03); Red Cell Distribution Width 14.3 % (13.2-15.2)
--- NOTE | 2019-04-29 05:05 | XRay Report ---
PROCEDURE: XR CHEST 1V AP TECHNIQUE: Chest radiograph single view. HISTORY: Chest Pain COMPARISONS: February 04, 2019 . FINDINGS: Heart: Normal. Mediastinum/Vessels: Normal. Lungs/Pleural space: Lungs are expanded. There are no acute infiltrates, effusions or pneumothoraces .. Bony thorax: No acute osseous abnormality. Life support devices: None. IMPRESSION: No acute cardiopulmonary abnormality. This document is electronically signed by Amol La MD., April 29 2019 05:03:16 AM ET
[2019-04-29] MEDS ORDERED: ZOFRAN IV ONE (05:21)
[2019-04-29] MEDS ORDERED: MORPHINE IV ONE (05:21)
[2019-04-29] MEDS ORDERED: LASIX IV ONE (05:21)
--- NOTE | 2019-04-29 05:23 | Event Note ---
ED Screening Note Date of service: 04/29/19 Time: 05:22 ED Screening Note: Patient is a 53-year-old male who is presented with chest pain. Patient states that 2-3 days ago he noticed that his bilateral lower extremities with swelling despite being on diuretics. Patient developed chest pressure with some shortness of breath which is constant but worse with exertion earlier today. Patient states this is similar to chest pains in the past. Patient had triple bypass surgery approximately a year ago. On focused physical exam patient does have 1+ edema in bilateral lower extremities. He is alert and oriented to begin full sentences in no acute distress. Cardiac workup has been initiated at this time. This initial assessment/diagnostic orders/clinical plan/treatment(s) is/are subject to change based on patients health status, clinical progression and re- assessment by fellow clinical providers in the ED. Further treatment and workup at subsequent clinical providers discretion. Patient/guardian urged not to elope from the ED as their condition may be serious if not clinically assessed and managed. Initial orders include:
--- NOTE | 2019-04-29 06:12 | Emergency Department Report ---
ED Chest Pain HPI - General Chief Complaint: Chest Pain Stated Complaint: CHEST PAIN Time Seen by Provider: 04/29/19 06:09 Source: patient, EMS Mode of arrival: Ambulatory Limitations: No Limitations - History of Present Illness Initial Comments: 53 y/o man with CAD s/p 3 vessel CABG December 2017, HTN, HF of the left lateral chest and shoulder which he states is sharp and intermittent nonpleuritic. It began at rest at 3 in the morning. Patient states he's also been having pain of the right lateral aspect of his chest. There was no acute diaphoresis or dyspnea. He denied nausea or vomiting. He has not been coughing. There's been no fever. Patient has been recently worked up and discharged with a diagnosis of atypical chest pain. 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 He states he is taking his lisinopril and carvedilol. He has been previously noncompliant with his medications. He states he has had ankle swell ing. He complains of pain of the bottom of his feet when he walks. 01/2019 Discharge diagnosis; --Atypical chest pain; probably noncardiac Stress test negative, continue current management Cardiology added PPI --Gastroesophageal reflux disease; Protonix --History of coronary artery disease status post CABG; Cardiac medications optimized by cardiology, advised compliance with medications --Hypertensive urgency upon admission; Blood pressures reasonable control, continue current antihypertensives --Dyslipidemia; continue statin and low cholesterol diet --Medical noncompliance; patient advised to comply with medications and diet follow-up visits Verbalized understanding MD Complaint: chest pain -: Gradual, hour(s) (left lateral), days(s) (right lateral) Onset: during rest Pain Location: left chest, right chest Pain Radiation: none, other (left shoulder also hurts) Severity: moderate Quality: sharp Consistency: now resolved Improves With: nothing Worsens With: nothing Context: other (history of CABG) re: denies: nausea, vomting, dyspnea, sense of impending doom Other Symptoms: denies: cough, fever, syncope Treatments Prior to Arrival: none Aspirin use within the Past 7 Days: (1) Yes - Related Data On Oral Contraceptives: No Home Medications Medication Instructions Recorded Confirmed Last Taken Gabapentin [Neurontin] 800 mg PO TID 02/06/19 03/09/19 Unknown Previous Rx's Medication Instructions Recorded Last Taken Type Aspirin [Aspirin BABY CHEW TAB] 81 mg PO QDAY #100 tab.chew 03/09/19 Unknown Rx AtorvaSTATin [Lipitor] 40 mg PO QHS #30 tablet 03/09/19 Unknown Rx ISOSORBIDE MONOnitrate [Imdur ER] 30 mg PO QDAY #30 tablet 03/09/19 Unknown Rx Losartan [Cozaar] 50 mg PO QDAY #30 tablet 03/09/19 Unknown Rx Metoprolol [Lopressor TAB] 50 mg PO BID 30 Days #60 tablet 03/09/19 Unknown Rx Pantoprazole [Protonix TAB] 40 mg PO QDAY #30 tablet 03/09/19 Unknown Rx tiZANidine [Zanaflex 4mg TAB] 4 mg PO QHS #30 tablet 03/09/19 Unknown Rx Lisinopril/Hydrochlorothiazide 1 tab PO QDAY #30 tab 04/29/19 Unknown Rx [Zestoretic 20-12.5 mg] traMADol [Ultram] 50 mg PO Q6HR PRN #7 tablet 04/29/19 Unknown Rx Allergies Allergy/AdvReac Type Severity Reaction Status Date / Time No Known Allergies Allergy Verified 02/04/19 16:38 Heart Score - HEART Score History: Slightly suspicious EKG: Normal Age: 45-65 Risk factors: > 3 risk factors or hx of atherosclerotic disease Troponin: < normal limit HEART Score: 3 - Critical Actions Critical Actions: 0-3 pts:0.9-1.7%risk of adverse cardiac event.Candidate for sascha lea ED Review of Systems ROS: Stated complaint: CHEST PAIN Other details as noted in HPI Constitutional: denies: chills, fever Eyes: denies: eye pain, eye discharge, vision change ENT: denies: ear pain, throat pain Respiratory: denies: cough, shortness of breath, wheezing Cardiovascular: chest pain. denies: palpitations Endocrine: no symptoms reported Gastrointestinal: denies: abdominal pain, nausea, diarrhea Genitourinary: denies: urgency, dysuria Musculoskeletal: other ("my feet hurt when I walk".). denies: back pain, joint swelling, arthralgia Skin: denies: rash, lesions Neurological: denies: headache, weakness, paresthesias Psychiatric: denies: anxiety, depression Hematological/Lymphatic: denies: easy bleeding, easy bruising ED Past Medical Hx - Past Medical History Previous Medical History?: Yes Hx Hypertension: Yes Hx CVA: Yes Hx Congestive Heart Failure: Yes Hx Diabetes: No Hx Asthma: No Hx COPD: No - Surgical History Past Surgical History?: Yes Additional Surgical History: OPEN HEART SURGERY 2018 - Social History Smoking Status: Never Smoker Substance Use Type: Marijuana - Medications Home Medications: Home Medications Medication Instructions Recorded Confirmed Last Taken Type Gabapentin [Neurontin] 800 mg PO TID 02/06/19 03/09/19 Unknown History Aspirin [Aspirin BABY CHEW TAB] 81 mg PO QDAY #100 tab.chew 03/09/19 Unknown Rx AtorvaSTATin [Lipitor] 40 mg PO QHS #30 tablet 03/09/19 Unknown Rx ISOSORBIDE MONOnitrate [Imdur ER] 30 mg PO QDAY #30 tablet 03/09/19 Unknown Rx Losartan [Cozaar] 50 mg PO QDAY #30 tablet 03/09/19 Unknown Rx Metoprolol [Lopressor TAB] 50 mg PO BID 30 Days #60 tablet 03/09/19 Unknown Rx Pantoprazole [Protonix TAB] 40 mg PO QDAY #30 tablet 03/09/19 Unknown Rx tiZANidine [Zanaflex 4mg TAB] 4 mg PO QHS #30 tablet 03/09/19 Unknown Rx Lisinopril/Hydrochlorothiazide 1 tab PO QDAY #30 tab 04/29/19 Unknown Rx [Zestoretic 20-12.5 mg] traMADol [Ultram] 50 mg PO Q6HR PRN #7 tablet 04/29/19 Unknown Rx ED Physical Exam - General Limitations: No Limitations General appearance: alert, in no apparent distress - Head Head exam: Present: atraumatic, normocephalic - Eye Eye exam: Present: normal appearance. Absent: scleral icterus - ENT ENT exam: Present: mucous membranes moist - Neck Neck exam: Present: normal inspection. Absent: tenderness - Respiratory Respiratory exam: Present: normal lung sounds bilaterally. Absent: respiratory distress - Cardiovascular Cardiovascular Exam: Present: regular rate, normal rhythm. Absent: systolic murmur, diastolic murmur, rubs, gallop - GI/Abdominal GI/Abdominal exam: Present: soft, normal bowel sounds. Absent: distended, tenderness, guarding, rebound, rigid - Rectal Rectal exam: Present: deferred - Extremities Exam Extremities exam: Present: normal inspection, normal capillary refill, other (trace pedal edema). Absent: pedal edema, joint swelling, calf tenderness - Back Exam Back exam: Present: normal inspection - Neurological Exam Neurological exam: Present: alert, oriented X3, CN II-XII intact. Absent: motor sensory deficit - Psychiatric Psychiatric exam: Present: normal affect, normal mood - Skin Skin exam: Present: warm, dry, intact, normal color. Absent: rash ED Course Vital Signs 04/29/19 04/29/19 04/29/19 03:02 05:30 06:01 Temperature 98.4 F 98.3 F Pulse Rate 70 73 73 Respiratory 20 17 13 Rate Blood Pressure 173/89 166/99 Blood Pressure 166/99 [Left] O2 Sat by Pulse 95 100 100 Oximetry 04/29/19 06:41 Temperature Pulse Rate 84 Respiratory 11 L Rate Blood Pressure Blood Pressure [Left] O2 Sat by Pulse 99 Oximetry - Reevaluation(s) Reevaluation #1: Given Lasix and morphine prior to my arrival. The patient is in no distress. A second EKG was entirely normal. Awaiting second troponin. At this point I would assume this is atypical chest pain which can be managed as an outpatient. I have also ordered a proBNP. 04/29/19 06:26 Reevaluation #2: Resting comfortably. No complaint of pain. Patient does not know the doses of his blood pressure medicine. He states he is taking plain lisinopril. I'm going to give him a prescription for the combination medication and referral to [facility]. He does not have a primary care provider. 04/29/19 08:49 ANDREW score - Andrew Score Aspirin use within the Past 7 Days: (1) Yes ED Medical Decision Making - Lab Data Result diagrams: 04/29/19 03:20 04/29/19 03:20 Laboratory Results - last 24 hr 04/29/19 04/29/19 03:20 03:20 WBC 6.5 RBC 4.34 Hgb 12.6 Hct 36.4 MCV 84 MCH 29 MCHC 35 H RDW 14.3 Plt Count 194 Lymph % (Auto) 32.1 [place] % (Auto) 8.6 H Eos % (Auto) 4.5 H Baso % (Auto) 1.4 Lymph # 2.1 [place] # 0.6 Eos # 0.3 Baso # 0.1 Seg Neutrophils % 53.4 Seg Neutrophils # 3.5 Sodium 143 Potassium 4.0 Chloride 105.0 Carbon Dioxide 21 L Anion Gap 21 BUN 14 Creatinine 0.9 Estimated GFR > 60 BUN/Creatinine Ratio 16 Glucose 97 Calcium 8.7 Troponin T < 0.010 Laboratory Results - last 24 hr 04/29/19 04/29/19 04/29/19 03:20 03:20 05:28 WBC 6.5 RBC 4.34 Hgb 12.6 Hct 36.4 MCV 84 MCH 29 MCHC 35 H RDW 14.3 Plt Count 194 Lymph % (Auto) 32.1 [place] % (Auto) 8.6 H Eos % (Auto) 4.5 H Baso % (Auto) 1.4 Lymph # 2.1 [place] # 0.6 Eos # 0.3 Baso # 0.1 Seg Neutrophils % 53.4 Seg Neutrophils # 3.5 PT INR APTT Sodium 143 Potassium 4.0 Chloride 105.0 Carbon Dioxide 21 L Anion Gap 21 BUN 14 Creatinine 0.9 Estimated GFR > 60 BUN/Creatinine Ratio 16 Glucose 97 Calcium 8.7 Troponin T < 0.010 < 0.010 NT-Pro-B Natriuret Pep 04/29/19 04/29/19 05:28 05:28 WBC RBC Hgb Hct MCV MCH MCHC RDW Plt Count Lymph % (Auto) [place] % (Auto) Eos % (Auto) Baso % (Auto) Lymph # [place] # Eos # Baso # Seg Neutrophils % Seg Neutrophils # PT 12.1 L INR 0.85 L APTT 23.1 L Sodium Potassium Chloride Carbon Dioxide Anion Gap BUN Creatinine Estimated GFR BUN/Creatinine Ratio Glucose Calcium Troponin T NT-Pro-B Natriuret Pep 230.0 Laboratory Results - last 24 hr 04/29/19 04/29/19 04/29/19 03:20 03:20 05:28 WBC 6.5 RBC 4.34 Hgb 12.6 Hct 36.4 MCV 84 MCH 29 MCHC 35 H RDW 14.3 Plt Count 194 Lymph % (Auto) 32.1 [place] % (Auto) 8.6 H Eos % (Auto) 4.5 H Baso % (Auto) 1.4 Lymph # 2.1 [place] # 0.6 Eos # 0.3 Baso # 0.1 Seg Neutrophils % 53.4 Seg Neutrophils # 3.5 PT INR APTT Sodium 143 Potassium 4.0 Chloride 105.0 Carbon Dioxide 21 L Anion Gap 21 BUN 14 Creatinine 0.9 Estimated GFR > 60 BUN/Creatinine Ratio 16 Glucose 97 Calcium 8.7 Troponin T < 0.010 < 0.010 NT-Pro-B Natriuret Pep 04/29/19 04/29/19 05:28 05:28 WBC RBC Hgb Hct MCV MCH MCHC RDW Plt Count Lymph % (Auto) [place] % (Auto) Eos % (Auto) Baso % (Auto) Lymph # [place] # Eos # Baso # Seg Neutrophils % Seg Neutrophils # PT 12.1 L INR 0.85 L APTT 23.1 L Sodium Potassium Chloride Carbon Dioxide Anion Gap BUN Creatinine Estimated GFR BUN/Creatinine Ratio Glucose Calcium Troponin T NT-Pro-B Natriuret Pep 230.0 - EKG Data -: EKG Interpreted by Al EKG shows normal: sinus rhythm, axis, intervals, QRS complexes, ST-T waves Rate: normal - EKG Data Interpretation: normal EKG - Radiology Data Radiology results: report reviewed NAP per rads Critical care attestation.: If time is entered above; I have spent that time in minutes in the direct care of this critically ill patient, excluding procedure time. ED Disposition Clinical Impression: Atypical chest pain, Poorly-controlled hypertension Disposition: DC- TO HOME OR SELFCARE Is pt being admited?: No Does the pt Need Aspirin: No Condition: Stable Instructions: Chest Pain (ED), Hypertension (ED) Additional Instructions: Follow-up with the primary care provider clinic as referred. Return any acute change or problem. Rx lisinopril HCTZ. Continue Coreg. Prescriptions: traMADol [Ultram] 50 mg PO Q6HR PRN #7 tablet PRN Reason: Pain Lisinopril/Hydrochlorothiazide [Zestoretic 20-12.5 mg] 1 tab PO QDAY #30 tab Referrals: MAGGIE COYLE MD [Primary Care Provider] - 3-5 Days [facility] [Provider Group] - 2-3 Days Time of Disposition: 08:50
[2019-04-29 06:14] LABS: INR 0.85 (0.87-1.13)
[2019-04-29 06:15] LABS: Partial Thromboplastin Time 23.1 Sec. (24.2-36.6)
[2019-04-29 09:44] VITALS: BP 169/97
== END 2019-04-29 09:52 | disposition home or self-care (01) ==
LOC: ED 02:50
DX: R07.89 Other chest pain (principal); I11.0 Hypertensive heart disease with heart failure; I50.9 Heart failure, unspecified; Z86.73 Personal history of transient ischemic attack (TIA), and cerebral infarction without residual deficits; F12.10 Cannabis abuse, uncomplicated; Z79.899 Other long term (current) drug therapy
CPT/HCPCS: 36415; 71045; 80048; 83880; 84484; 85025; 85610; 85730; 93005; 93010; 96374; 96375; 99285; J1940; J2270; J2405

== ENCOUNTER 2019-06-07 16:51 | Inpatient (IN) | payer MEDICARE ==
[2019-06-07] MEDS ORDERED: ASPIRIN PO ONE (17:17)
[2019-06-07 18:09] LABS: Basophils # (Auto) 0.1 K/mm3 (0.0-0.1); Eosinophils # (Auto) 0.2 K/mm3 (0.0-0.4); Eosinophils % (Auto) 2.7 % (0.0-4.3); Hematocrit 38.2 % (35.5-45.6); Hemoglobin 12.9 gm/dl (11.8-15.2); Lymphocytes # (Auto) 2.5 K/mm3 (1.2-5.4); Lymphocytes % (Auto) 33.2 % (13.4-35.0); Mean Corpuscular HGB Conc 34 % (32-34); Mean Corpuscular Volume 84 fl (84-94); Monocytes # (Auto) 0.6 K/mm3 (0.0-0.8); Monocytes % (Auto) 7.5 % (0.0-7.3); Platelet Count 259 K/mm3 (140-440); Red Blood Count 4.54 M/mm3 (3.65-5.03); Red Cell Distribution Width 14.8 % (13.2-15.2)
[2019-06-07 18:19] LABS: BUN/Creatinine Ratio 10; Blood Urea Nitrogen 8 mg/dL (9-20); Calcium 9.5 mg/dL (8.4-10.2); Hemolysis Index 9
--- NOTE | 2019-06-07 18:26 | XRay Report ---
CHEST 1 VIEW INDICATION / CLINICAL INFORMATION: Chest Pain. COMPARISON: 04/29/2019 FINDINGS: SUPPORT DEVICES: None. HEART / MEDIASTINUM: Median sternotomy. Heart size remains normal. LUNGS / PLEURA: No significant pulmonary or pleural abnormality. No pneumothorax. ADDITIONAL FINDINGS: No significant additional findings. IMPRESSION: 1. No acute findings. Signer Name: Diogo Aleman MD Signed: 06/07/2019 6:21 PM Workstation Name: [id number]
[2019-06-07 18:27] LABS: INR 0.99 (0.87-1.13); Partial Thromboplastin Time 20.7 Sec. (24.2-36.6)
[2019-06-07] MEDS ORDERED: SUBLIMAZE IV ONE (18:53)
[2019-06-07] MEDS ORDERED: ZOFRAN IV ONE (18:53)
[2019-06-07] MEDS ORDERED: NITRO-BID 2% TP ONE (18:53)
--- NOTE | 2019-06-07 18:59 | Emergency Department Report ---
HPI - General Chief Complaint: Chest Pain Time Seen by Provider: 06/07/19 18:11 - HPI HPI: Room 26 The patient is a 53-year-old male presenting with chief complaint of chest pain. Patient states she began having chest pain last night in the left chest radiating to the left shoulder that was sharp in nature. The patient states he took 3-4 nitroglycerin glycerin and his pain improved. The patient states the pain return today and he states he feels the same as before he received his CABG. Patient had a three-vessel bypass 2017. Patient currently gives his pain a score of 8/10 Location: [See above] Duration: [See above] Quality: [See above] Severity: [See above] Modifying factors: [see above] Context: [see above] Mode of transportation: [not driving] ED Past Medical Hx - Past Medical History Hx Hypertension: Yes Hx CVA: Yes Hx Congestive Heart Failure: Yes - Surgical History Past Surgical History?: No Additional Surgical History: OPEN HEART SURGERY 2018 - Family History Family history: no significant - Social History Smoking Status: Never Smoker Substance Use Type: Marijuana - Medications Home Medications: Home Medications Medication Instructions Recorded Confirmed Last Taken Type Gabapentin [Neurontin] 800 mg PO TID 02/06/19 03/09/19 Unknown History Aspirin [Aspirin BABY CHEW TAB] 81 mg PO QDAY #100 tab.chew 03/09/19 Unknown Rx AtorvaSTATin [Lipitor] 40 mg PO QHS #30 tablet 03/09/19 Unknown Rx ISOSORBIDE MONOnitrate [Imdur ER] 30 mg PO QDAY #30 tablet 03/09/19 Unknown Rx Losartan [Cozaar] 50 mg PO QDAY #30 tablet 03/09/19 Unknown Rx Metoprolol [Lopressor TAB] 50 mg PO BID 30 Days #60 tablet 03/09/19 Unknown Rx Pantoprazole [Protonix TAB] 40 mg PO QDAY #30 tablet 03/09/19 Unknown Rx tiZANidine [Zanaflex 4mg TAB] 4 mg PO QHS #30 tablet 03/09/19 Unknown Rx Lisinopril/Hydrochlorothiazide 1 tab PO QDAY #30 tab 04/29/19 Unknown Rx [Zestoretic 20-12.5 mg] traMADol [Ultram] 50 mg PO Q6HR PRN #7 tablet 04/29/19 Unknown Rx ED Review of Systems ROS: Stated complaint: CHEST PAIN Other details as noted in HPI Constitutional: denies: diaphoresis Eyes: denies: eye pain ENT: denies: throat pain Respiratory: shortness of breath Cardiovascular: chest pain Endocrine: no symptoms reported Gastrointestinal: nausea. denies: vomiting Genitourinary: denies: dysuria Musculoskeletal: denies: back pain Skin: denies: lesions Neurological: denies: headache Physical Exam - Physical Exam Vital Signs: Vital Signs 06/07/19 06/07/19 17:08 18:51 Temperature 98.1 F Pulse Rate 66 57 L Respiratory 16 18 Rate Blood Pressure 174/84 Blood Pressure 161/88 [Right] O2 Sat by Pulse 100 97 Oximetry Physical Exam: GENERAL: The patient is well-developed well-nourished male lying on stretcher not appearing to be in acute distress. [] HEENT: Normocephalic. Atraumatic. Extraocular motions are intact. Patient has moist mucous membranes. NECK: Supple. Trachea midline CHEST/LUNGS: Clear to auscultation. There is no respiratory distress noted. HEART/CARDIOVASCULAR: Regular. There is no tachycardia. There is no gallop rub or murmur. ABDOMEN: Abdomen is soft, nontender. Patient has normal bowel sounds. There is no abdominal distention. SKIN: There is no rash. There is no edema. There is no diaphoresis. NEURO: The patient is awake, alert, and oriented. The patient is cooperative. The patient has normal speech MUSCULOSKELETAL: There is no evidence of acute injury. ED Course Vital Signs 06/07/19 06/07/19 17:08 18:51 Temperature 98.1 F Pulse Rate 66 57 L Respiratory 16 18 Rate Blood Pressure 174/84 Blood Pressure 161/88 [Right] O2 Sat by Pulse 100 97 Oximetry ED Medical Decision Making - Lab Data Result diagrams: 06/07/19 17:35 06/07/19 17:35 Laboratory Tests 06/07/19 06/07/19 06/07/19 17:35 17:35 17:35 WBC 7.5 RBC 4.54 Hgb 12.9 Hct 38.2 MCV 84 MCH 29 MCHC 34 RDW 14.8 Plt Count 259 Lymph % (Auto) 33.2 [place] % (Auto) 7.5 H Eos % (Auto) 2.7 Baso % (Auto) 1.0 Lymph # 2.5 [place] # 0.6 Eos # 0.2 Baso # 0.1 Seg Neutrophils % 55.6 Seg Neutrophils # 4.2 PT 12.8 INR 0.99 APTT 20.7 L Sodium 143 Potassium 4.2 Chloride 109.5 H Carbon Dioxide 22 Anion Gap 16 BUN 8 L Creatinine 0.8 Estimated GFR > 60 BUN/Creatinine Ratio 10 Glucose 94 Calcium 9.5 Troponin T < 0.010 - EKG Data -: EKG Interpreted by Me EKG shows normal: sinus rhythm Rate: bradycardia (59 bpm) - EKG Data When compared to previous EKG there are: changes noted Interpretation: nonspecific ST-T wave chandra (new T-wave inversions in leads 3 and aVF) - Radiology Data Radiology results: report reviewed (chest x-ray), image reviewed (chest x-ray) interpreted by me: Chest x-ray-no focal infiltrate, no pneumothorax [facility] [address] [place] [address] XRay Report Signed Patient: TANNA FONTANEZ MR#: [id number] : 1965 Acct:[id number] Age/Sex: 53 / M ADM Date: 06/07/19 Loc: ED Attending Dr: Ordering Physician: ADILENE HORAN MD Date of Service: 06/07/19 Procedure(s): XR chest 1V ap Accession Number(s): [id number] cc: ADILENE HORAN MD Fluoro Time In Minutes: CHEST 1 VIEW INDICATION / CLINICAL INFORMATION: Chest Pain. COMPARISON: 04/29/2019 FINDINGS: SUPPORT DEVICES: None. HEART / MEDIASTINUM: Median sternotomy. Heart size remains normal. LUNGS / PLEURA: No significant pulmonary or pleural abnormality. No pneumothorax. ADDITIONAL FINDINGS: No significant additional findings. IMPRESSION: 1. No acute findings. Signer Name: Diogo Aleman MD Signed: 06/07/2019 6:21 PM Workstation Name: [id number] Transcribed By: VERONICA Dictated By: Diogo Aleman MD Electronically Authenticated By: Diogo Aleman MD Signed Date/Time: 06/07/191820 DD/ 20 TD/TT: - Differential Diagnosis ACS, pericarditis, GERD Critical care attestation.: If time is entered above; I have spent that time in minutes in the direct care of this critically ill patient, excluding procedure time. ED Disposition Clinical Impression: Chest pain, T wave inversion in EKG Disposition: OP ADMIT IP TO THIS HOSP Is pt being admited?: Yes Does the pt Need Aspirin: Yes Condition: Fair Instructions: Chest Pain (ED) Time of Disposition: 19:00 (hospitalist notified (Dr Rangel))
--- NOTE | 2019-06-07 19:05 | History and Physical Report ---
History of Present Illness Chief complaint: My chest hurts History of present illness: 53 YO Male with HTN, CHF, CVA, CAD S/P CABG presents to ED for evaluation. Pt states that he has experienced pain in his chest over the past 2 days with worsening symptoms over the past 1 day. Pt states that pain is 8-10/10, Intermi ttent, Substernal, Radiates to the left arm, Not worsened with exertion, not relieved with rest, relieved after taking 3-4 nitro tabs, associated with shortness of breath, nausea and diaphoresis. Pt acknowledges decreased exercise tolerance, dypsnea on exertion. Pt transported to [facility] via private vehicle. Pt seen and evaluated in ED and found to have symptoms consistent with Stable Angina, as well as Diastolic CHF. Pt admitted to telemetry. Cardiology consulted in ED. Pt denies fever, chills, palpitations, trauma, skin rash, BRBPR, Unintentional weight loss, Night sweats, prolonged travel/immobility, unilateral leg swelling, calf pain, individual/family history of DVT/PE/Blood Clotting Disorders. Prior admission on 02/04/19 reviewed. All listed mediation reconciled at time of admission. Past History Past Medical History: CAD, heart failure, hypertension, stroke Past Surgical History: CABG Social history: . denies: smoking, alcohol abuse, prescription drug abuse Family history: CAD, hypertension Medications and Allergies Allergies Allergy/AdvReac Type Severity Reaction Status Date / Time No Known Allergies Allergy Verified 02/04/19 16:38 Home Medications Medication Instructions Recorded Confirmed Last Taken Type Gabapentin [Neurontin] 800 mg PO TID 02/06/19 03/09/19 Unknown History Aspirin [Aspirin BABY CHEW TAB] 81 mg PO QDAY #100 tab.chew 03/09/19 Unknown Rx AtorvaSTATin [Lipitor] 40 mg PO QHS #30 tablet 03/09/19 Unknown Rx ISOSORBIDE MONOnitrate [Imdur ER] 30 mg PO QDAY #30 tablet 03/09/19 Unknown Rx Losartan [Cozaar] 50 mg PO QDAY #30 tablet 03/09/19 Unknown Rx Metoprolol [Lopressor TAB] 50 mg PO BID 30 Days #60 tablet 03/09/19 Unknown Rx Pantoprazole [Protonix TAB] 40 mg PO QDAY #30 tablet 03/09/19 Unknown Rx tiZANidine [Zanaflex 4mg TAB] 4 mg PO QHS #30 tablet 03/09/19 Unknown Rx Lisinopril/Hydrochlorothiazide 1 tab PO QDAY #30 tab 04/29/19 Unknown Rx [Zestoretic 20-12.5 mg] traMADol [Ultram] 50 mg PO Q6HR PRN #7 tablet 04/29/19 Unknown Rx Review of Systems Constitutional: no weight loss, no weight gain, no fever, no chills Ears, nose, mouth and throat: no ear pain, no ear discharge, no tinnitis, no nose pain Cardiovascular: chest pain, shortness of breath, dyspnea on exertion, decreased exercise tolerance, no palpitations, no edema, no syncope, no lightheadedness Respiratory: no cough, no cough with sputum, no excessive sputum, no hemoptysis Gastrointestinal: no abdominal pain, no nausea, no vomiting, no diarrhea, no constipation Genitourinary Male: no hematuria, no flank pain, no discharge, no urinary frequency, no urinary hesitancy Rectal: no pain, no incontinence, no bleeding Musculoskeletal: no neck stiffness, no neck pain, no shooting arm pain, no arm numbness/tingling, no low back pain, no shooting leg pain Integumentary: no rash, no pruritis, no redness, no sores, no wounds Neurological: no transient paralysis, no paralysis, no weakness, no parathesias, no seizures Psychiatric: no anxiety, no memory loss, no change in sleep habits, no sleep disturbances, no insomnia, no hypersomnia, no change in appetite Endocrine: no cold intolerance, no heat intolerance, no polyphagia, no excessive thirst, no polydipsia, no polyuria, no nocturia Hematologic/Lymphatic: no easy bruising, no lymphadenopathy Allergic/Immunologic: no urticaria, no anaphylaxis Exam - Constitutional Vitals: Temp Pulse Resp BP Pulse Ox 98.1 F 57 L 18 161/88 97 06/07/19 17:08 06/07/19 18:51 06/07/19 18:51 06/07/19 18:51 06/07/19 18:51 General appearance: Present: mild distress - EENT Eyes: Present: PERRL ENT: hearing intact, clear oral mucosa - Neck Neck: Present: supple, normal ROM - Respiratory Respiratory effort: normal Respiratory: bilateral: CTA - Cardiovascular Heart Sounds: Present: S1 & S2. Absent: rub, click - Extremities Extremities: pulses symmetrical, No edema Peripheral Pulses: within normal limits - Abdominal General gastrointestinal: Present: soft, non-tender, non-distended, normal bowel sounds Male genitourinary: Present: normal - Integumentary Integumentary: Present: clear, warm, dry - Musculoskeletal Musculoskeletal: gait normal, strength equal bilaterally - Psychiatric Psychiatric: appropriate mood/affect, intact judgment & insight - Neurologic Neurologic: CNII-XII intact, moves all extremities Results - Labs CBC & Chem 7: 06/07/19 17:35 06/07/19 17:35 Labs: Abnormal lab results 06/07/19 06/07/19 06/07/19 Range/Units 17:35 17:35 17:35 [place] % (Auto) 7.5 H (0.0-7.3) % APTT 20.7 L (24.2-36.6) Sec. Chloride 109.5 H (98-107) mmol/L BUN 8 L (9-20) mg/dL Assessment and Plan - Patient Problems (1) Angina at rest Current Visit: No Status: Acute Plan to address problem: serial cardiac enzymes, ekg, telemetry, stress test reviewed, morphine, supplemental oxygen, nitro, aspirin, D dimer, (2) CHF (congestive heart failure) Current Visit: Yes Status: Acute Qualifiers: Heart failure type: diastolic Heart failure chronicity: acute on chronic Qualified Code(s): I50.33 - Acute on chronic diastolic (congestive) heart failure Plan to address problem: Admit to telemetry, BNP, chest x ray, strict I/O, daily weight, blood pressure control, cardiology consulted, thyroid panel, magnesium level. (3) CAD (coronary artery disease) Current Visit: No Status: Acute Qualifiers: Coronary Disease-Associated Artery/Lesion type: bypass graft, autologous vein Associated angina: with stable angina Qualified Code(s): I25.718 - Atherosclerosis of autologous vein coronary artery bypass graft(s) with other forms of angina pectoris Plan to address problem: Admit to telemetry, risk factor reduction, low cholesterol diet, (4) HTN (hypertension) Current Visit: No Status: Acute Qualifiers: Hypertension type: essential hypertension Qualified Code(s): I10 - Essen tial (primary) hypertension Plan to address problem: Monitor bp q shift, continue medical management. (5) DVT prophylaxis Current Visit: No Status: Acute Plan to address problem: SCD to ble while in bed, prophylactic lovenox,
[2019-06-07] MEDS ORDERED: ZOFRAN IV PRN (19:11)
[2019-06-07] MEDS ORDERED: PROVENTIL IH PRN (19:11)
[2019-06-07] MEDS ORDERED: TYLENOL PO PRN (19:11)
[2019-06-07] MEDS ORDERED: BABY ASPIRIN PO STA (19:12)
[2019-06-07] MEDS ORDERED: NITROSTAT SL PRN (19:12)
[2019-06-07] MEDS ORDERED: SODIUM CHLORIDE FLUSH SYRINGE 10 ML IV PRN (19:12)
[2019-06-07] MEDS ORDERED: PEPCID PO SCH (22:00)
[2019-06-07] MEDS: SODIUM CHLORIDE FLUSH SYRINGE 10 ML IV SCH (22:41)
[2019-06-07] MEDS: LOVENOX SUB-Q SCH (22:41)
[2019-06-07] MEDS ORDERED: APRESOLINE IV PRN (22:53)
[2019-06-07] MEDS: MORPHINE IV PRN (23:00)
[2019-06-07] MEDS: SODIUM CHLORIDE FLUSH SYRINGE 10 ML IV PRN (23:02)
[2019-06-07] MEDS: ZANAFLEX PO SCH (23:36)
[2019-06-07 23:48] LABS: Free T4 (Free Thyroxine) 1.22 ng/dL (0.76-1.46)
[2019-06-08] MEDS: MORPHINE IV PRN (04:22)
[2019-06-08] MEDS: SODIUM CHLORIDE FLUSH SYRINGE 10 ML IV PRN (04:25)
[2019-06-08] MEDS ORDERED: NON-FORMULARY (Gabapentin [Neurontin] 800 MG) PO SCH (08:00)
[2019-06-08] MEDS ORDERED: ASPIRIN PO NR (09:47)
[2019-06-08] MEDS ORDERED: NACL 0.9% 500 ML 500 ML IV SCH (10:00)
[2019-06-08] MEDS ORDERED: BABY ASPIRIN PO SCH (10:00)
[2019-06-08] MEDS: PROTONIX PO SCH (10:07)
[2019-06-08] MEDS ORDERED: HEPARIN/NS 5000 UNIT/500ML(CATH LAB) 1,000 ML IR ONE (10:07)
[2019-06-08] MEDS ORDERED: CALAN ONE (10:07)
--- NOTE | 2019-06-08 10:10 | Consultation ---
History of Present Illness Consult date: 06/08/19 Requesting physician: AUREA MADRID Consult reason: chest pain, congestive heart failure History of present illness: The pt is a 53 yo male with a past medical history of CAD s/p 3 vessel CABG December 2017 at [facility], HTN, HF. He has been seen by our practice on prior hospitalization but has admittedly been noncompliant with OP follow up due to financial issues. He presents with c/o chest pain for the past several months. He describes his chest pain as an intermittent left-sided pressure which radiates into his left arm. The pain is aggravated by exertion. The pain is usually relieved by SL nitro x 1. Yesterday, pt was at rest when the pain returned and was not alleviated by SL nitro and thus pt called EMS. The pain is associated with SOB, nausea and dizziness. CABG performed . He lives in [place], [place]. However, he is in the middle of divorce. He is currently staying with his sister who lives near our hospital. Pt underwent lexiscan MPI stress 01/2019 which was negative for ischemia, EF 62%. Past History Past Medical History: CAD, heart failure, hypertension Past Surgical History: CABG Social history: . denies: smoking, alcohol abuse, prescription drug abuse Family history: CAD, hypertension Medications and Allergies Allergies Allergy/AdvReac Type Severity Reaction Status Date / Time No Known Allergies Allergy Verified 02/04/19 16:38 Home Medications Medication Instructions Recorded Confirmed Last Taken Type Gabapentin [Neurontin] 800 mg PO TID 02/06/19 06/07/19 Unknown History Aspirin [Aspirin BABY CHEW TAB] 81 mg PO QDAY #100 tab.chew 03/09/19 06/07/19 Unknown Rx AtorvaSTATin [Lipitor] 40 mg PO QHS #30 tablet 03/09/19 06/07/19 Unknown Rx ISOSORBIDE MONOnitrate [Imdur ER] 30 mg PO QDAY #30 tablet 03/09/19 06/07/19 Unknown Rx Losartan [Cozaar] 50 mg PO QDAY #30 tablet 03/09/19 06/07/19 Unknown Rx Metoprolol [Lopressor TAB] 50 mg PO BID 30 Days #60 tablet 03/09/19 06/07/19 Unknown Rx Pantoprazole [Protonix TAB] 40 mg PO QDAY #30 tablet 03/09/19 06/07/19 Unknown Rx tiZANidine [Zanaflex 4mg TAB] 4 mg PO QHS #30 tablet 03/09/19 06/07/19 Unknown Rx Lisinopril/Hydrochlorothiazide 1 tab PO QDAY #30 tab 04/29/19 06/07/19 Unknown Rx [Zestoretic 20-12.5 mg] traMADol [Ultram] 50 mg PO Q6HR PRN #7 tablet 04/29/19 06/07/19 Unknown Rx Active Meds: Active Medications Acetaminophen (Tylenol) 650 mg PO Q4H PRN PRN Reason: Pain MILD(1-3)/Fever >100.5/CESPEDES Albuterol (Proventil) 2.5 mg IH Q4HRT PRN PRN Reason: Shortness Of Breath Aspirin (Baby Aspirin) 81 mg PO QDAY [facility] Aspirin (Aspirin) 325 mg PO ONCE NR Stop: 06/08/19 11:00 Last Admin: 06/08/19 10:00 Dose: 325 mg Documented by: Atorvastatin Calcium (Lipitor) 40 mg PO QHS [facility] Enoxaparin Sodium (Lovenox) 40 mg SUB-Q QDAY@2200 [facility] Last Admin: 06/07/19 22:41 Dose: 40 mg Documented by: Gabapentin (Neurontin) 800 mg PO TID [facility] Hydralazine HCl (Apresoline) 10 mg IV Q4HR PRN PRN Reason: Blood Pressure Last Admin: 06/08/19 04:21 Dose: 10 mg Documented by: Sodium Chloride (Nacl 0.9% 500 Ml) 500 mls @ 50 mls/hr IV DIRECT [facility] Stop: 06/08/19 19:59 Last Admin: 06/08/19 10:00 Dose: 50 mls/hr Documented by: Morphine Sulfate (Morphine) 2 mg IV Q4H PRN PRN Reason: Pain, Moderate (4-6) Last Admin: 06/08/19 04:22 Dose: 2 mg Documented by: Nitroglycerin (Nitrostat) 0.4 mg SL Q5M PRN PRN Reason: Chest Pain Ondansetron HCl (Zofran) 4 mg IV Q8H PRN PRN Reason: Nausea And Vomiting Pantoprazole Sodium (Protonix) 40 mg PO QDAY [facility] Sodium Chloride (Sodium Chloride Flush Syringe 10 Ml) 10 ml IV BID [facility] Last Admin: 06/07/19 22:41 Dose: 10 ml Documented by: Sodium Chloride (Sodium Chloride Flush Syringe 10 Ml) 10 ml IV PRN PRN PRN Reason: LINE FLUSH Last Admin: 06/08/19 04:25 Dose: 10 ml Documented by: Tizanidine HCl (Zanaflex) 4 mg PO QHS [facility] Last Admin: 06/07/19 23:36 Dose: 4 mg Documented by: Review of Systems Constitutional: no weight loss, no weight gain, no fever, no chills, no sweats Ears, nose, mouth and throat: no ear pain, no nose pain, no sinus pressure, no sinus pain Cardiovascular: chest pain, shortness of breath, dyspnea on exertion, decreased exercise tolerance, no orthopnea, no palpitations, no rapid/irregular heart beat, no edema, no syncope, no lightheadedness, no paroxysmal nocturnal dyspnea, no leg edema Respiratory: shortness of breath, dyspnea on exertion, no cough, no congestion, no wheezing, no pain on inspiration Gastrointestinal: no abdominal pain, no nausea, no diarrhea, no constipation, no change in bowel habits Genitourinary Male: no dysuria, no hematuria, no flank pain, no discharge, no urinary frequency, no urinary hesitancy Musculoskeletal: no neck stiffness, no neck pain, no shooting arm pain, no arm numbness/tingling, no low back pain, no shooting leg pain Integumentary: no rash, no pruritis, no sores, no wounds Neurological: no head injury, no paralysis, no weakness, no parathesias, no numbness, no tingling, no seizures, no syncope Psychiatric: no anxiety Endocrine: no cold intolerance, no heat intolerance Hematologic/Lymphatic: no easy bruising, no easy bleeding Allergic/Immunologic: no urticaria, no wheezing Physical Examination Vital Signs Temp Pulse Resp BP Pulse Ox 98.1 F 66 16 174/84 100 06/07/19 17:08 06/07/19 17:08 06/07/19 17:08 06/07/19 17:08 06/07/19 17:08 General appearance: no acute distress HEENT: Positive: PERRL, Normocephaly, Mucus Membranes Moist Neck: Positive: neck supple, trachea midline Cardiac: Positive: Reg Rate and Rhythm, S1/S2 Lungs: Positive: Decreased Breath Sounds Neuro: Positive: Grossly Intact Abdomen: Negative: Tender Male genitourinary: Negative: tender Skin: Negative: Rash Musculoskeletal: No Pain Extremities: Absent: edema Results 06/07/19 17:35 06/07/19 17:35 Coagulation 06/07/19 Range/Units 17:35 PT 12.8 (12.2-14.9) Sec. INR 0.99 (0.87-1.13) APTT 20.7 L (24.2-36.6) Sec. Lipids 06/07/19 Range/Units 19:18 Triglycerides 235 H (2-149) mg/dL Cholesterol 164 (50-199) mg/dL HDL Cholesterol 41 (40-59) mg/dL Cholesterol/HDL Ratio 4.00 % CBC 06/07/19 Range/Units 17:35 WBC 7.5 (4.5-11.0) K/mm3 RBC 4.54 (3.65-5.03) M/mm3 Hgb 12.9 (11.8-15.2) gm/dl Hct 38.2 (35.5-45.6) % Plt Count 259 (140-440) K/mm3 Lymph # 2.5 (1.2-5.4) K/mm3 [place] # 0.6 (0.0-0.8) K/mm3 Eos # 0.2 (0.0-0.4) K/mm3 Baso # 0.1 (0.0-0.1) K/mm3 Comprehensive Metabolic Panel 06/07/19 Range/Units 17:35 Sodium 143 (137-145) mmol/L Potassium 4.2 (3.6-5.0) mmol/L Chloride 109.5 H (98-107) mmol/L Carbon Dioxide 22 (22-30) mmol/L BUN 8 L (9-20) mg/dL Creatinine 0.8 (0.8-1.5) mg/dL Glucose 94 (75-100) mg/dL Calcium 9.5 (8.4-10.2) mg/dL - Imaging and Cardiology Echo: pending Cardiac cath: pending EKG: report reviewed, image reviewed EKG interpretations - Telemetry EKG Rhythm: Sinus Rhythm - EKG Sinus rhythms and dysrhythmias: sinus rhythm Assessment and Plan Pt presents with unstable angina. He underwent lexiscan MPI stress 01/2019 which was negative for ischemia, EF 62%. ECG with NAF, Hammad negative for AMI. Coronary angiography recommended for definitive diagnosis. Indications, potential risks and benefits of LHC reviewed with pt and he is agreeable to proceed. Await findings. The patient has been seen in conjunction with Dr. Burrows who agrees with the assessment and plan of care. - Patient Problems (1) Unstable angina Current Visit: Yes Status: Acute (2) CAD (coronary artery disease) Current Visit: Yes Status: Chronic Qualifiers: Associated angina: with stable angina (3) S/P CABG (coronary artery bypass graft) Current Visit: Yes Status: Chronic (4) HTN (hypertension) Current Visit: Yes Status: Chronic Qualifiers: Hypertension type: essential hypertension Qualified Code(s): I10 - Essential (primary) hypertension
[2019-06-08] MEDS ORDERED: VERSED ONE (10:21)
[2019-06-08] MEDS: SUBLIMAZE ONE ×2 (10:42→10:50)
[2019-06-08] MEDS: XYLOCAINE 2% INFILTRATI ONE ×2 (10:48→10:49)
[2019-06-08] MEDS: HEPARIN 10,000 UNITS/10 ML ONE ×2 (11:08→11:49)
[2019-06-08] MEDS ORDERED: DILAUDID ONE ×2 (11:13→11:47)
[2019-06-08] MEDS ORDERED: PLAVIX ONE (11:45)
[2019-06-08] MEDS ORDERED: HEPARIN 10,000 UNITS/10 ML ONE ×2 (11:50→12:27)
[2019-06-08] MEDS ORDERED: NORCO 5/325 PO ONE (13:10)
[2019-06-08] MEDS ORDERED: NORCO 5/325 ONE (13:23)
[2019-06-08] MEDS: NEURONTIN PO SCH ×3 (13:34→21:30)
--- NOTE | 2019-06-08 13:36 | Cardiac Catherization Report ---
CARDIAC CATHETERIZATION AND CORONARY INTERVENTION REPORT INDICATIONS FOR PROCEDURE: The patient is a 53-year-old white gentleman with a history of known coronary artery disease, underwent bypass surgery at [facility] approximately 1 and 1/2 year ago with 3-vessel bypass. Subsequently, he came to this hospital in January of this year and had a stress test done, which was unremarkable. However, patient came back with unstable angina and exertional chest pain suggestive of angina, hence he is scheduled for cardiac catheterization because of unstable anginal symptoms. The patient is aware of the procedure, potential complications, and alternatives of therapy available. DESCRIPTION OF PROCEDURE: The patient was brought to the catheterization laboratory in a fasting condition. The patient was evaluated for moderate sedation and he was felt to be appropriate candidate for moderate sedation. He received IV Versed and fentanyl. Subsequently, the patient was prepared in standard fashion and local anesthesia was given in the right groin area. Under fluoroscopy, right femoral artery puncture was made using 5-Sammarinese micropuncture needle. Subsequently, 5-Sammarinese slender sheath was introduced. A 6-Sammarinese multipurpose catheter was used to obtain the angiograms of the vein graft of the RCA and vein graft of the marginal branch in addition to angiograms of the right coronary artery. Mammary catheter was used to obtain the angiograms of the left mammary graft. JL4 catheter was used to obtain the angiograms of the left coronary artery. A multipurpose catheter was used to obtain the left ventriculogram done in MAHMOOD projection using hand injection. Subsequently, procedure was converted to interventional procedure. Following findings were noted: HEMODYNAMICS: 1. Opening aortic pressure 155/82. Left ventricular pressure 150/19. No gradient across the aortic valve. Estimated ejection fraction 55%. Left ventriculogram done in MAHMOOD projection using an injection showed mild hypokinesis of the inferior wall. Overall, ejection fraction was found to be normal. Mitral regurgitation could not be evaluated because of limited amount of dye. 2. Right coronary artery showed dominant vessel. Mild calcifications noted. There is a 50% proximal lesion and 75% focal mid lesion. Distally vessel showed mild irregularities, large vessel. 3. Saphenous vein graft to the RCA is completely occluded in the proximal part. Only small proximal part of the vein graft was visualized. 4. Left coronary artery shows the left main to showing 50% distal lesion. LAD did not show any significant disease. Circumflex artery showed 50% ostial lesion. LAD showed competitive flow in the mid part. Left internal mammary graft to the LAD is widely patent with competitive flow. Saphenous vein graft to the obtuse marginal branch is patent. COLLATERALS: None. FINAL IMPRESSION: Severe coronary artery disease with patent left internal mammary to the LAD and patent saphenous vein graft to the obtuse marginal branch with 50% left main lesion. Saphenous vein graft to the RCA is occluded with severe mid and moderate proximal RCA lesion. Considering his symptoms, particularly with exertion and also was recently got worse suggestive of unstable nature, it was felt that the patient would benefit from coronary intervention. Procedure was converted to interventional procedure. Intervention of the proximal and mid RCA lesions: The patient has indwelling 5-Sammarinese slender sheath in the right groin. The patient was given 70 units/kg of heparin and given more sedation. A JR4 guiding catheter was advanced and engaged the right coronary artery. A 0.014 inch [place] XT guidewire was advanced into the distal RCA without difficulty. Mid RCA lesion, which was felt to be 75% was dilated with 3.50 x 15 mm Euphora balloon. Subsequently, an intravascular ultrasound was performed and the vessel in the mid area was found to be approximately 3.5 mm in size. Proximal vessel was found to be around 4.0 mm size. Mild focal calcifications were noted on the intervascular ultrasound. Subsequently, a 3.5 x 15 mm Xience Amelia stent was inserted in the mid RCA and inflated up to 18 atmospheres with good result. No proximal or distal dissection noted. Subsequently, repeat IVUS was attempted; however, because of the proximal lesion could not advance IVUS catheter. Proximal lesion was dilated with 3.0 balloon and a second guidewire, Iron Man was advanced distally. He was able to advance a 4.0 x 15 mm Xience Amelia stent to the proximal area and dilated up to 16 atmospheres with very good result. A second run of IVUS was performed after insertion of the 2 stents. This showed well opposed, well expanded stents both in the proximal and mid area. ANDREW 3 flow was noted in the RCA prior to and post-procedure. Proximal lesion was expanded from 50% to 0% diameter stenosis. IVUS post-stenting area was found to be 9.2 square mm. Mid RCA lesion, which was stented with 3.5 x 15 mm Xience stent also was well expanded and well opposed. Lumen area in the stented area was found to be 7.9 square mm. Prior to the procedure, lumen area in this was found to be 3.7 square mm. No proximal or distal dissection noted. The patient tolerated the procedure well. No hemodynamic changes were noted during the procedure. The patient received 600 mg of Plavix in addition to continued IV heparin. His ACT was found to be below 200. Hence, 4000 units of IV heparin given. Femoral angiogram was obtained and it was felt appropriate. A 6-Sammarinese ProGlide was used to close the right femoral artery access. Very good hemostasis was achieved post-procedure. No hematoma noted. Vital signs have been stable. The patient was monitored for sedation throughout the procedure up to 11:50 a.m. The patient at the end of the procedure is communicating normally, moving all the extremities, breathing normally with no focal deficits. The patient received sedation from 10:41 a.m. to 11:50 a.m. The patient was transferred to the outpatient area in stable condition. The patient will be continued on Plavix, aspirin in addition to his previous medications including statin. FINAL IMPRESSION: Uncomplicated drug-eluting stent placement of the mid RCA and a proximal RCA as mentioned above successfully uncomplicated with the guidance of IVUS. This was done because of occluded saphenous vein graft with unstable anginal symptoms. Findings were explained to the patient. He understands. JOB# [id number]/MYA LEE
[2019-06-08] MEDS: NORCO 5/325 PO PRN (19:10)
--- NOTE | 2019-06-08 20:45 | Progress Note ---
Assessment and Plan - Patient Problems (1) Unstable angina Current Visit: Yes Status: Acute Plan to address problem: Now resolved status post PCI placement. Patient at present chest pain free. Continue long-acting beta tatyana imdur aspirin beta tatyana. Statin (2) CAD (coronary artery disease) Current Visit: Yes Status: Chronic Qualifiers: Associated angina: with stable angina Plan to address problem: Status post PCI currently hemodynamically stable. Continue aggressive antihypertensive lipid therapy. Indoor beta tatyana aspirin Plavix. Resting blood pressure control aggressive risk factor reduction. Low sodium diet cardiac diet. (3) HTN (hypertension) Current Visit: Yes Status: Chronic Qualifiers: Hypertension type: essential hypertension Qualified Code(s): I10 - Essential (primary) hypertension Plan to address problem: Patient's blood pressure is fair control present time on lopressor losartan. (4) Hyperthyroidism Current Visit: Yes Status: Acute (5) Hyperthyroidism determined by thyroid function test Current Visit: Yes Status: Acute Plan to address problem: Patient asymptomatic has decreased TSH. No signs and symptoms of hypo-or hyperthyroidism. No tachycardia no heat intolerance no hair loss no unusual fatigue. We'll not start Tapazole or PTU at this time. Patient is stable enough to follow up outpatient with endocrinology. History Interval history: Patient 52-year-old history of hypertension and CVA coronary artery disease status post CABG present with acute chest pain. L TM left arm. Requiring 3 nitroglycerin. Patient recently down for cardiac catheterization had stent placed today. PCR patient in for follow-up currently hemodynamically stable following PCI. It should discharged a cardiac follow-up. Hospitalist Physical - Constitutional Vitals: Temp Pulse Resp BP Pulse Ox 98.7 F 63 20 146/78 97 06/08/19 20:19 06/08/19 20:19 06/08/19 20:19 06/08/19 20:19 06/08/19 20:19 General appearance: Present: no acute distress - EENT Eyes: Present: PERRL, EOM intact ENT: hearing intact, clear oral mucosa, dentition normal - Neck Neck: Present: supple, normal ROM - Respiratory Respiratory: bilateral: CTA - Cardiovascular Rhythm: regular Heart Sounds: Present: S1 & S2 - Extremities Extremities: no ischemia, pulses intact, pulses symmetrical, No edema, normal temperature, normal color, Full ROM Peripheral Pulses: within normal limits - Abdominal General gastrointestinal: soft, non-tender, non-distended, normal bowel sounds - Integumentary Integumentary: Present: clear, dry, erythema - Psychiatric Psychiatric: appropriate mood/affect, intact judgment & insight, memory intact - Neurologic Neurologic: CNII-XII intact, moves all extremities Results - Labs CBC & Chem 7: 06/07/19 17:35 06/07/19 17:35 Labs: Laboratory Last Values WBC 7.5 K/mm3 (4.5-11.0) 06/07/19 17:35 RBC 4.54 M/mm3 (3.65-5.03) 06/07/19 17:35 Hgb 12.9 gm/dl (11.8-15.2) 06/07/19 17:35 Hct 38.2 % (35.5-45.6) 06/07/19 17:35 MCV 84 fl (84-94) 06/07/19 17:35 MCH 29 pg (28-32) 06/07/19 17:35 MCHC 34 % (32-34) 06/07/19 17:35 RDW 14.8 % (13.2-15.2) 06/07/19 17:35 Plt Count 259 K/mm3 (140-440) 06/07/19 17:35 Lymph % (Auto) 33.2 % (13.4-35.0) 06/07/19 17:35 [place] % (Auto) 7.5 % (0.0-7.3) H 06/07/19 17:35 Eos % (Auto) 2.7 % (0.0-4.3) 06/07/19 17:35 Baso % (Auto) 1.0 % (0.0-1.8) 06/07/19 17:35 Lymph # 2.5 K/mm3 (1.2-5.4) 06/07/19 17:35 [place] # 0.6 K/mm3 (0.0-0.8) 06/07/19 17:35 Eos # 0.2 K/mm3 (0.0-0.4) 06/07/19 17:35 Baso # 0.1 K/mm3 (0.0-0.1) 06/07/19 17:35 Seg Neutrophils % 55.6 % (40.0-70.0) 06/07/19 17:35 Seg Neutrophils # 4.2 K/mm3 (1.8-7.7) 06/07/19 17:35 PT 12.8 Sec. (12.2-14.9) 06/07/19 17:35 INR 0.99 (0.87-1.13) 06/07/19 17:35 APTT 20.7 Sec. (24.2-36.6) L 06/07/19 17:35 199.08 ng/mlDDU (0-234) 06/07/19 19:18 Sodium 143 mmol/L (137-145) 06/07/19 17:35 Potassium 4.2 mmol/L (3.6-5.0) 06/07/19 17:35 Chloride 109.5 mmol/L (98-107) H 06/07/19 17:35 Carbon Dioxide 22 mmol/L (22-30) 06/07/19 17:35 16 mmol/L 06/07/19 17:35 BUN 8 mg/dL (9-20) L 06/07/19 17:35 0.8 mg/dL (0.8-1.5) 06/07/19 17:35 Estimated GFR > 60 ml/min 06/07/19 17:35 10 % 06/07/19 17:35 Glucose 94 mg/dL (75-100) 06/07/19 17:35 Calcium 9.5 mg/dL (8.4-10.2) 06/07/19 17:35 Magnesium 2.20 mg/dL (1.7-2.3) 06/07/19 22:51 < 0.010 ng/mL (0.00-0.029) 06/07/19 22:51 NT-Pro-B Natriuret Pep 385.6 pg/mL (0-900) 06/07/19 19:18 Triglycerides 235 mg/dL (2-149) H 06/07/19 19:18 Cholesterol 164 mg/dL (50-199) 06/07/19 19:18 100 mg/dL (50-130) 06/07/19 19:18 41 mg/dL (40-59) 06/07/19 19:18 4.00 % 06/07/19 19:18 TSH 0.053 mlU/mL (0.270-4.200) L 06/07/19 22:51 Free T4 1.22 ng/dL (0.76-1.46) 06/07/19 22:51 - Imaging and Cardiology EKG: image reviewed Chest x-ray: image reviewed Active Medications - Current Medications Current Medications: Generic Name Dose Route Start Last Admin Trade Name Freq PRN Reason Stop Dose Admin Acetaminophen 650 mg 06/07/19 19:11 Tylenol PO Q4H PRN Pain MILD(1-3)/Fever >100.5/CESPEDES Acetaminophen/Hydrocodone Bitart 1 each 06/08/19 18:00 06/08/19 19:10 [place] 5/325 PO 1 each Q8H PRN Administration Pain, Moderate (4-6) Albuterol 2.5 mg 06/07/19 19:11 Proventil IH Q4HRT PRN Shortness Of Breath Aspirin 325 mg 06/09/19 10:00 Aspirin PO QDAY [facility] Atorvastatin Calcium 80 mg 06/08/19 22:00 Lipitor PO QHS [facility] Clopidogrel Bisulfate 75 mg 06/09/19 10:00 Plavix PO QDAY [facility] Enoxaparin Sodium 40 mg 06/07/19 22:00 06/07/19 22:41 Lovenox SUB-Q 40 mg QDAY@2200 [facility] Administration Gabapentin 800 mg 06/08/19 08:00 06/08/19 15:29 Neurontin PO Not Given TID [facility] Isosorbide Mononitrate 30 mg 06/09/19 10:00 Imdur PO QDAY [facility] Losartan Potassium 50 mg 06/09/19 10:00 Cozaar PO QDAY [facility] Metoprolol Tartrate 25 mg 06/08/19 22:00 Lopressor PO BID [facility] Morphine Sulfate 2 mg 06/07/19 19:11 06/08/19 04:22 Morphine IV 2 mg Q4H PRN Administration Pain, Moderate (4-6) Nitroglycerin 0.4 mg 06/07/19 19:12 Nitrostat SL Q5M PRN Chest Pain Ondansetron HCl 4 mg 06/07/19 19:11 Zofran IV Q8H PRN Nausea And Vomiting Pantoprazole Sodium 40 mg 06/08/19 10:00 06/08/19 10:07 Protonix PO Not Given QDAY [facility] Sodium Chloride 10 ml 06/07/19 22:00 06/07/19 22:41 Sodium Chloride Flush Syringe 10 Ml IV 10 ml BID DOMITILA Administration Sodium Chloride 10 ml 06/07/19 19:11 06/08/19 04:25 Sodium Chloride Flush Syringe 10 Ml IV 10 ml PRN PRN Administration LINE FLUSH Tizanidine HCl 4 mg 06/07/19 23:30 06/07/19 23:36 Zanaflex PO 4 mg QHS DOMITILA Administration
[2019-06-08] MEDS: SODIUM CHLORIDE FLUSH SYRINGE 10 ML IV SCH (21:30)
[2019-06-08] MEDS: ZANAFLEX PO SCH (21:30)
[2019-06-08] MEDS: LOPRESSOR PO SCH (21:31)
[2019-06-08] MEDS: LOVENOX SUB-Q SCH (21:31)
[2019-06-09] MEDS: NORCO 5/325 PO PRN ×3 (02:43→17:37)
[2019-06-09 05:56] LABS: Creatine Kinase MB 2.1 ng/mL (0.0-4.0)
[2019-06-09 05:57] LABS: BUN/Creatinine Ratio 11; Blood Urea Nitrogen 8 mg/dL (9-20); Calcium 9.1 mg/dL (8.4-10.2); Hemolysis Index 12
[2019-06-09 06:02] LABS: Hematocrit 42.6 % (35.5-45.6); Hemoglobin 14.3 gm/dl (11.8-15.2); Mean Corpuscular HGB Conc 34 % (32-34); Mean Corpuscular Volume 85 fl (84-94); Platelet Count 234 K/mm3 (140-440); Red Cell Distribution Width 14.9 % (13.2-15.2)
[2019-06-09 06:10] LABS: Lymphocytes % (Auto) 23.9 % (13.4-35.0); Monocytes % (Auto) 6.9 % (0.0-7.3)
[2019-06-09 06:11] LABS: Basophils # (Auto) 0.1 K/mm3 (0.0-0.1); Eosinophils # (Auto) 0.2 K/mm3 (0.0-0.4); Eosinophils % (Auto) 2.4 % (0.0-4.3); Lymphocytes # (Auto) 1.8 K/mm3 (1.2-5.4); Monocytes # (Auto) 0.5 K/mm3 (0.0-0.8)
[2019-06-09] MEDS: MORPHINE IV PRN ×3 (06:56→13:14)
--- NOTE | 2019-06-09 08:36 | XRay Report ---
CHEST 1 VIEW 0805 INDICATION / CLINICAL INFORMATION: post pci. COMPARISON: 06/07/2019 FINDINGS: SUPPORT DEVICES: None HEART / MEDIASTINUM: No significant abnormality. LUNGS / PLEURA: No significant pulmonary or pleural abnormality. No pneumothorax. ADDITIONAL FINDINGS: No significant additional findings. IMPRESSION: No significant acute abnormality Signer Name: Bright Shabazz MD Signed: 06/09/2019 8:32 AM Workstation Name: [id number]
[2019-06-09] MEDS: PROTONIX PO SCH (09:31)
[2019-06-09] MEDS: LOPRESSOR PO SCH (09:33)
[2019-06-09] MEDS: NEURONTIN PO SCH ×2 (09:33→13:13)
[2019-06-09] MEDS: SODIUM CHLORIDE FLUSH SYRINGE 10 ML IV SCH ×2 (09:35→09:36)
[2019-06-09] MEDS ORDERED: IMDUR PO SCH (10:00)
[2019-06-09] MEDS ORDERED: PLAVIX PO SCH (10:00)
[2019-06-09] MEDS ORDERED: ASPIRIN PO SCH (10:00)
[2019-06-09] MEDS ORDERED: COZAAR PO SCH (10:00)
--- NOTE | 2019-06-09 10:26 | Discharge Summary ---
Providers - Providers Date of Admission: 06/07/19 19:11 Date of discharge: 06/09/19 Attending physician: JAZIEL TIRADO 06/07/19 Consult to Cardiac Rehabilitation [CONS] Routine Reason For Exam: Phase I 06/07/19 19:13 Consult to Cardiology [CONS] Routine Consulting Provider: BILL MEJIA Reason For Exam: CHF/Angina 06/08/19 Consult to Cardiac Rehabilitation [CONS] Routine Reason For Exam: post pci Primary care physician: WEB ASSISTANT Hospitalization Reason for admission: cp Condition: Fair Hospital course: The pt is a 53 yo male with a past medical history of CAD s/p 3 vessel CABG December 2017 at [facility], HTN, HF who presented with c/o chest pain for the past several months. He described his chest pain as an intermittent left-sided pressure which radiated into his left arm. The pain is aggravated by exertion. The pain is usually relieved by SL nitro x 1. The tim [employer], pt was at rest when the pain returned and was not alleviated by SL nitro and thus pt called EMS. The pain was associated with SOB, nausea and dizziness. Pt underwent lexiscan MPI stress 01/2019 which was negative for ischemia, EF 62%. The patient presented with diagnosis of unstable angina. Patient underwent cardiac catheterization with PCI. Patient has done well postprocedure and pain- free. Therefore, patient will be discharged home. Dedicated discharge time 32 minutes. Disposition: DC-30 STILL A PATIENT Core Measure Documentation - Palliative Care Palliative Care/ Comfort Measures: Not Applicable - Core Measures Any of the following diagnoses?: none Exam - Constitutional Vitals: Temp Pulse Resp BP Pulse Ox 98.3 F 63 18 139/79 97 06/09/19 08:04 06/09/19 09:33 06/09/19 08:04 06/09/19 09:33 06/09/19 08:04 General appearance: Present: no acute distress, well-nourished - EENT Eyes: Present: PERRL ENT: hearing intact, clear oral mucosa - Neck Neck: Present: supple, normal ROM - Respiratory Respiratory effort: normal Respiratory: bilateral: CTA - Cardiovascular Heart Sounds: Present: S1 & S2. Absent: rub, click - Extremities Extremities: pulses symmetrical, No edema Peripheral Pulses: within normal limits - Abdominal General gastrointestinal: Present: soft, non-tender, non-distended, normal bowel sounds Male genitourinary: Present: normal - Integumentary Integumentary: Present: clear, warm, dry - Musculoskeletal Musculoskeletal: gait normal, strength equal bilaterally - Psychiatric Psychiatric: appropriate mood/affect, intact judgment & insight - Neurologic Neurologic: CNII-XII intact, moves all extremities Plan Activity: advance as tolerated Diet: low fat, low cholesterol, low salt Follow up with: PRIMARY CARE,MD [Primary Care Provider] - 7 Days Prescriptions: Aspirin 325 mg PO QDAY #30 tablet Losartan [Cozaar] 50 mg PO QDAY #30 tablet ISOSORBIDE MONOnitrate [Imdur ER] 30 mg PO QDAY #30 tablet AtorvaSTATin [Lipitor] 80 mg PO QHS #30 tablet Metoprolol [Lopressor TAB] 50 mg PO BID 30 Days #60 tablet Gabapentin [Neurontin] 800 mg PO TID #90 tablet Nitroglycerin [Nitrostat] 0.4 mg SL Q5M PRN #30 tablet PRN Reason: Chest Pain HYDROcodone/APAP 5-325 [[place] 5-325 mg TAB] 1 each PO Q8H PRN #8 tablet PRN Reason: Pain, Moderate (4-6) Clopidogrel [Plavix] 75 mg PO QDAY #30 tablet Pantoprazole [Protonix TAB] 40 mg PO QDAY #30 tablet tiZANidine [Zanaflex 4mg TAB] 4 mg PO QHS #30 tablet Lisinopril/Hydrochlorothiazide [Zestoretic 20-12.5 mg] 1 tab PO QDAY #30 tab
--- NOTE | 2019-06-09 11:35 | Progress Note ---
Assessment and Plan Currently stable cardiac status. Obtain echo. Pt may discharge home from cardiology standpoint on current cardiac regimen following echo. Follow up in our [place] office with Dr. Burrows on 06/17/2019 @ 10:30AM. The patient has been seen in conjunction with Dr. Burrows who agrees with the assessment and plan of care. - Patient Problems (1) Unstable angina Current Visit: Yes Status: Acute (2) CAD (coronary artery disease) Current Visit: Yes Status: Chronic Qualifiers: Associated angina: with stable angina (3) Stented coronary artery Current Visit: Yes Status: Chronic (4) S/P CABG (coronary artery bypass graft) Current Visit: Yes Status: Chronic (5) HTN (hypertension) Current Visit: Yes Status: Chronic Qualifiers: Hypertension type: essential hypertension Qualified Code(s): I10 - Essential (primary) hypertension Subjective Date of service: 06/09/19 Principal diagnosis: UA Interval history: pt resting in bed, states he is feeling much better today, chest pain resolved. Objective Last Vital Signs Temp 98.3 F 06/09/19 08:04 Pulse 70 06/09/19 10:00 Resp 18 06/09/19 08:04 BP 139/79 06/09/19 09:33 Pulse Ox 96 06/09/19 11:32 - Physical Examination General: No Apparent Distress HEENT: Positive: PERRL, Normocephaly, Mucus Membranes Moist Neck: Positive: neck supple, trachea midline Cardiac: Positive: Reg Rate and Rhythm, S1/S2 Lungs: Positive: Decreased Breath Sounds Neuro: Positive: Grossly Intact Abdomen: Negative: Tender Skin: Negative: Rash Incision: Cardiac Cath Site (right groin c/d/i) Musculoskeletal: No Pain Extremities: Absent: edema - Labs and Meds Cardiac Enzymes 06/09/19 Range/Units 04:53 CK-MB (CK-2) 2.1 (0.0-4.0) ng/mL CBC 06/09/19 Range/Units 04:53 WBC 7.6 (4.5-11.0) K/mm3 RBC 5.00 (3.65-5.03) M/mm3 Hgb 14.3 (11.8-15.2) gm/dl Hct 42.6 (35.5-45.6) % Plt Count 234 (140-440) K/mm3 Lymph # 1.8 (1.2-5.4) K/mm3 [place] # 0.5 (0.0-0.8) K/mm3 Eos # 0.2 (0.0-0.4) K/mm3 Baso # 0.1 (0.0-0.1) K/mm3 Comprehensive Metabolic Panel 06/09/19 Range/Units 04:53 Sodium 140 (137-145) mmol/L Potassium 4.0 (3.6-5.0) mmol/L Chloride 106.9 (98-107) mmol/L Carbon Dioxide 21 L (22-30) mmol/L BUN 8 L (9-20) mg/dL Creatinine 0.7 L (0.8-1.5) mg/dL Glucose 94 (75-100) mg/dL Calcium 9.1 (8.4-10.2) mg/dL - Imaging and Cardiology EKG: image reviewed Echo: pending Cardiac cath: report reviewed - Telemetry EKG Rhythm: Sinus Rhythm - EKG Sinus rhythms and dysrhythmias: sinus rhythm
[2019-06-09 16:36] VITALS: BP 118/66
== END 2019-06-09 18:29 | disposition home or self-care (01) | DRG 246 ==
LOC: ED 16:51 → 4A 19:11
PROVIDERS: ADMIT Internal Medicine; ATTEND Hospitalist
PROC: 4A023N7 Measurement of Cardiac Sampling and Pressure, Left Heart, Percutaneous Approach (ICD-10-PCS; principal; 2019-06-08)
PROC: 027035Z Dilation of Coronary Artery, One Artery with Two Drug-eluting Intraluminal Devices, Percutaneous Approach (ICD-10-PCS; 2019-06-08)
PROC: B2111ZZ Fluoroscopy of Multiple Coronary Arteries using Low Osmolar Contrast (ICD-10-PCS; 2019-06-08)
PROC: B2151ZZ Fluoroscopy of Left Heart using Low Osmolar Contrast (ICD-10-PCS; 2019-06-08)
PROC: B241ZZ3 Ultrasonography of Multiple Coronary Arteries, Intravascular (ICD-10-PCS; 2019-06-08)
PROC: B2121ZZ Fluoroscopy of Single Coronary Artery Bypass Graft using Low Osmolar Contrast (ICD-10-PCS; 2019-06-08)
PROC: B2181ZZ Fluoroscopy of Left Internal Mammary Bypass Graft using Low Osmolar Contrast (ICD-10-PCS; 2019-06-08)
DX: I25.718 Atherosclerosis of autologous vein coronary artery bypass graft(s) with other forms of angina pectoris (principal); I50.33 Acute on chronic diastolic (congestive) heart failure; I11.0 Hypertensive heart disease with heart failure; F12.90 Cannabis use, unspecified, uncomplicated; E05.90 Thyrotoxicosis, unspecified without thyrotoxic crisis or storm; Z86.73 Personal history of transient ischemic attack (TIA), and cerebral infarction without residual deficits; Z82.49 Family history of ischemic heart disease and other diseases of the circulatory system; Z95.1 Presence of aortocoronary bypass graft; Z79.82 Long term (current) use of aspirin; Z79.899 Other long term (current) drug therapy
CPT/HCPCS: 36415; 71045; 80048; 80061; 82550; 82553; 83735; 83880; 84439; 84443; 84484; 85025; 85347; 85379; 85610; 85730; 92928; 92978; 93005; 93010; 93306; 93459; 96374; 96375; G0378; A9270-GY; C1725; C1753; C1760; C1769; C1874; C1887; C1894; C9600; J0360; J1170; J1644; J1650; J2250; J2270; J2405; J3010; J7040; Q9967

== ENCOUNTER 2019-08-24 06:22 | Inpatient (IN) | payer MEDICARE ==
[2019-08-24] MEDS ORDERED: NITROGLYCERIN 0.4 MG TAB SUBL SL ONE (08:11)
[2019-08-24] MEDS ORDERED: ASPIRIN 325 MG TAB PO ONE (08:11)
[2019-08-24] MEDS ORDERED: SODIUM CHLORIDE 0.9% 500 ML 500 ML IV ONE (08:11)
--- NOTE | 2019-08-24 08:13 | Emergency Department Report ---
ED Chest Pain HPI - General Chief Complaint: Chest Pain Stated Complaint: CHEST PAIN Time Seen by Provider: 08/24/19 07:18 Source: patient, EMS (ems notes not available at time of chart dictation), RN notes reviewed, old records reviewed Mode of arrival: Stretcher Limitations: No Limitations - History of Present Illness Initial Comments: This is a 54-year-old gentleman. This patient is not known to this provider previously. Past history includes heart disease, status post bypass, stent appointment, on aspirin and Plavix therapy, hypertension. The patient had a cardiac catheterization at this hospital in May 2019. Findings were complex, he was found to have multiple lesions, drug-eluting stent was placed in the mid RCA, and proximal RCA, performed because of occluded saphenous vein graft with unstable anginal symptoms The patient presents today with a complaint of nontraumatic chest pain. The chest pain is left-sided and moves to the left shoulder. There is nausea, sweating, and shortness of breath. Patient reports this feels similar to prior anginal symptoms. He endorses compliance with his medications. He took nitroglycerin with partial relief of symptoms. He denies cocaine use, and he denies DVT, pulmonary embolus risk factors. He reports that after his stents were deployed in May, his symptoms improved. He reports that over the past month, he has been having sporadic chest pain, but typically improves with breathing exercises, nitroglycerin, and rest. This is the first time his pain was not significantly believed by the aforementioned interventions. Currently, he rates his pain as a 7 out of 10. MD Complaint: chest pain -: Gradual, hour(s) Onset: during rest Pain Location: left chest Pain Radiation: LUE Severity: moderate Severity scale (0 -10): 7 Quality: aching Consistency: intermittent Improves With: other Worsens With: other Aspirin use within the Past 7 Days: (1) Yes - Related Data Home Medications Medication Instructions Recorded Confirmed Last Taken Celecoxib [celeBREX] 200 mg PO DAILY 08/24/19 08/24/19 08/23/19 [place] 10-325 mg TAB 10 mg PO Q4HR 08/24/19 08/24/19 08/23/19 Promethazine [Phenergan] 25 mg PO BID 08/24/19 08/24/19 08/23/19 Previous Rx's Medication Instructions Recorded Last Taken Type AtorvaSTATin [Lipitor] 80 mg PO QHS #30 tablet 06/09/19 08/23/19 Rx Clopidogrel [Plavix] 75 mg PO QDAY #30 tablet 06/09/19 08/23/19 Rx Gabapentin [Neurontin] 800 mg PO TID #90 tablet 06/09/19 08/23/19 Rx Losartan [Cozaar] 50 mg PO QDAY #30 tablet 06/09/19 08/23/19 Rx Metoprolol [Lopressor TAB] 50 mg PO BID 30 Days #60 tablet 06/09/19 08/23/19 Rx tiZANidine [Zanaflex 4mg TAB] 4 mg PO QHS #30 tablet 06/09/19 08/23/19 Rx Allergies Allergy/AdvReac Type Severity Reaction Status Date / Time No Known Allergies Allergy Verified 02/04/19 16:38 Heart Score - HEART Score History: Highly suspicious EKG: Non-specific Age: 45-65 Risk factors: > 3 risk factors or hx of atherosclerotic disease Troponin: < normal limit HEART Score: 6 - Critical Actions Critical Actions: 4-6 pts:12-16.6% risk of adverse cardiac event. Should be admitted ED Review of Systems ROS: Stated complaint: CHEST PAIN Other details as noted in HPI Constitutional: malaise Eyes: denies: eye discharge ENT: denies: congestion Respiratory: shortness of breath Cardiovascular: chest pain Gastrointestinal: nausea Genitourinary: denies: dysuria Musculoskeletal: denies: back pain Skin: denies: lesions Neurological: weakness, numbness ED Past Medical Hx - Past Medical History Hx Hypertension: Yes Hx CVA: Yes Hx Congestive Heart Failure: Yes Hx Diabetes: No Hx Asthma: No Hx COPD: No Additional medical history: chronic back pain, sciatica - Surgical History Past Surgical History?: Yes Additional Surgical History: OPEN HEART SURGERY 2018, stent placement - Social History Smoking Status: Former Smoker Substance Use Type: Marijuana - Medications Home Medications: Home Medications Medication Instructions Recorded Confirmed Last Taken Type AtorvaSTATin [Lipitor] 80 mg PO QHS #30 tablet 06/09/19 08/24/19 08/23/19 Rx Clopidogrel [Plavix] 75 mg PO QDAY #30 tablet 06/09/19 08/24/19 08/23/19 Rx Gabapentin [Neurontin] 800 mg PO TID #90 tablet 06/09/19 08/24/19 08/23/19 Rx Losartan [Cozaar] 50 mg PO QDAY #30 tablet 06/09/19 08/24/19 08/23/19 Rx Metoprolol [Lopressor TAB] 50 mg PO BID 30 Days #60 tablet 06/09/19 08/24/19 08/23/19 Rx tiZANidine [Zanaflex 4mg TAB] 4 mg PO QHS #30 tablet 06/09/19 08/24/19 08/23/19 Rx Celecoxib [celeBREX] 200 mg PO DAILY 08/24/19 08/24/19 08/23/19 History Matlock 10-325 mg TAB 10 mg PO Q4HR 08/24/19 08/24/19 08/23/19 History Promethazine [Phenergan] 25 mg PO BID 08/24/19 08/24/19 08/23/19 History ED Physical Exam - General Limitations: No Limitations General appearance: alert, in no apparent distress - Head Head exam: Present: atraumatic, normocephalic - Eye Eye exam: Present: normal appearance, EOMI. Absent: nystagmus - ENT ENT exam: Present: normal exam, normal orophraynx, mucous membranes moist, normal external ear exam - Neck Neck exam: Present: normal inspection - Respiratory Respiratory exam: Present: normal lung sounds bilaterally. Absent: respiratory distress - Cardiovascular Cardiovascular Exam: Present: regular rate, normal rhythm, normal heart sounds. Absent: bradycardia, tachycardia, irregular rhythm, systolic murmur, diastolic murmur, rubs, gallop - GI/Abdominal GI/Abdominal exam: Present: soft. Absent: distended, tenderness, guarding, rebound, rigid, pulsatile mass - Rectal Rectal exam: Present: deferred - Extremities Exam Extremities exam: Present: normal inspection, full ROM, other (2+ pulses noted in the bilateral upper, lower extremities. Compartments soft. No long bony tenderness. The pelvis is stable.). Absent: pedal edema, calf tenderness - Back Exam Back exam: Present: normal inspection, full ROM. Absent: tenderness, CVA tenderness (R), CVA tenderness (L), paraspinal tenderness, vertebral tenderness - Neurological Exam Neurological exam: Present: alert, oriented X3, other (Extraocular movements intact. Tongue midline. No facial droop. Facial sensation intact to light touch in the V1, V2, V3 distribution bilaterally. 5 and 5 strength in 4 extrem ities.. Sensation is intact to light touch in 4 extremities.). Absent: motor sensory deficit - Psychiatric Psychiatric exam: Present: normal affect, normal mood - Skin Skin exam: Present: warm, dry, intact, normal color. Absent: rash ED Course Vital Signs 08/24/19 08/24/19 08/24/19 07:10 07:15 07:30 Temperature 97.5 F L Pulse Rate 70 74 72 Respiratory 18 22 10 L Rate Blood Pressure 165/80 147/83 O2 Sat by Pulse 98 100 Oximetry 08/24/19 08/24/19 08/24/19 07:46 08:00 08:16 Temperature Pulse Rate 68 67 Respiratory 15 11 L Rate Blood Pressure 147/83 149/82 149/82 O2 Sat by Pulse 98 99 98 Oximetry 08/24/19 08/24/19 08/24/19 08:30 08:46 09:00 Temperature Pulse Rate 68 68 Respiratory 19 13 11 L Rate Blood Pressure 149/82 132/46 132/46 O2 Sat by Pulse 97 100 98 Oximetry 08/24/19 08/24/19 08/24/19 09:16 09:30 09:46 Temperature Pulse Rate 62 77 87 Respiratory 16 17 12 Rate Blood Pressure 153/75 161/91 132/46 O2 Sat by Pulse 97 99 99 Oximetry 08/24/19 08/24/19 08/24/19 10:14 10:16 10:30 Temperature Pulse Rate 79 58 L 53 L Respiratory 12 16 Rate Blood Pressure 132/46 132/46 132/46 O2 Sat by Pulse 100 98 99 Oximetry - Reevaluation(s) Reevaluation #1: 08/24/19 08:44 Differential diagnosis, including but not limited to: Angina, unstable angina, stable angina, GERD, gastritis, pneumonia Assessment and plan: 54-year-old gentleman, with typical anginal symptoms. This is most likely progression of his chronic underlying ischemic disease. He appears comfortable at this time. He is amenable to hospitalization and admission. Patient at high risk for major adverse cardiac event. We will treat his pain and symptoms, obtain screening laboratory studies, serial EKGs, cons ult cardiology, plan to admit to medical service. Discussed this with the patient who verbalized understanding and was amenable to hospitalization. He is not tachycardic or hypoxic, he is not tachypneic, he does not have DVT or pulmonary embolism risk factors, and he is low risk by well's criteria. Reevaluation #2: 08/24/19 09:20 Dr Elvis Gomez to admit troponin pending - Consultations Consultation #1: 08/24/19 08:46 Discussed with cardiology nurse practitioner, Miguel Chisholm, working with hardwood floor layer, Dr. Esqueda, their group will follow in consultation. ROCAEL score - Rocael Score Age > 65: (0) No Aspirin use within the Past 7 Days: (1) Yes 3 or more CAD Risk Factors: (1) Yes 2 or more Angina events in past 24 hrs: (1) Yes Known CAD with more than 50% Stenosis: (1) Yes Elevated Cardiac Markers: (0) No ST Deviation Greater than 0.5mm: (0) No ROCAEL Score: 4 ED Medical Decision Making - Lab Data Result diagrams: 08/24/19 08:27 08/24/19 08:27 Vital Signs 08/24/19 07:10 Temperature 97.5 F L Pulse Rate 70 Respiratory 18 Rate Blood Pressure 165/80 O2 Sat by Pulse 98 Oximetry Lab Results 08/24/19 Range/Units 08:27 WBC 7.6 (4.5-11.0) K/mm3 RBC 5.07 H (3.65-5.03) M/mm3 Hgb 14.1 (11.8-15.2) gm/dl Hct 43.2 (35.5-45.6) % MCV 85 (84-94) fl MCH 28 (28-32) pg MCHC 33 (32-34) % RDW 15.5 H (13.2-15.2) % Plt Count 268 (140-440) K/mm3 Lymph % (Auto) 17.2 (13.4-35.0) % [place] % (Auto) 4.6 (0.0-7.3) % Eos % (Auto) 1.6 (0.0-4.3) % Baso % (Auto) 1.4 (0.0-1.8) % Lymph # 1.3 (1.2-5.4) K/mm3 [place] # 0.4 (0.0-0.8) K/mm3 Eos # 0.1 (0.0-0.4) K/mm3 Baso # 0.1 (0.0-0.1) K/mm3 Seg Neutrophils % 75.2 H (40.0-70.0) % Seg Neutrophils # 5.7 (1.8-7.7) K/mm3 - EKG Data -: EKG Interpreted by Me EKG shows normal: sinus rhythm Rate: normal - Radiology Data Radiology results: report reviewed, image reviewed Print Report Referring Physician: SYED SHAW Patient Name: TANNA FONTANEZ Date of : 1965 Sex: Male Report Date: 2019-08-24 Report Status: Finalized Findings [facility] [address] [place] [address] XRay Report Signed Patient: TANNA FONTANEZ MR#: [id number] : 1965 Acct:[id number] Age/Sex: 54 / M ADM Date: 08/24/19 Loc: ED Attending Dr: Ordering Physician: SYED SHAW MD Date of Service: 08/24/19 Procedure(s): XR chest 1V ap Accession Number(s): [id number] cc: SYED SHAW MD Fluoro Time In Minutes: CHEST 1 VIEW INDICATION: Chest Pain. COMPARISON: 06/09/2019 FINDINGS: Support devices: None. Heart: Previous CABG changes are noted. Heart size and mediastinal contour are within normal limits. Lungs/Pleura: No acute air space or interstitial disease. Additional findings: None. IMPRESSION: No acute findings. Signer Name: Jay Thomas Jr, MD Signed: 08/24/2019 8:28 AM Workstation Name: [id number] Transcribed By: TTR Dictated By: JAY THOMAS JR, MD Electronically Authenticated By: JAY THOMAS JR, MD Signed Date/Time: 08/24/19 0828 Critical care attestation.: If time is entered above; I have spent that time in minutes in the direct care of this critically ill patient, excluding procedure time. ED Disposition Clinical Impression: CAD (coronary artery disease), S/P CABG (coronary artery bypass graft), Angina at rest Disposition: OP ADMIT IP TO THIS HOSP Is pt being admited?: Yes Condition: Good
[2019-08-24] MEDS ORDERED: ONDANSETRON 4 MG/2 ML INJ ONE (08:32)
--- NOTE | 2019-08-24 08:33 | XRay Report ---
CHEST 1 VIEW INDICATION: Chest Pain. COMPARISON: 06/09/2019 FINDINGS: Support devices: None. Heart: Previous CABG changes are noted. Heart size and mediastinal contour are within normal limits. Lungs/Pleura: No acute air space or interstitial disease. Additional findings: None. IMPRESSION: No acute findings. Signer Name: Jay Thomas Jr, MD Signed: 08/24/2019 8:28 AM Workstation Name: [id number]
[2019-08-24 08:37] LABS: Basophils # (Auto) 0.1 K/mm3 (0.0-0.1); Basophils % (Auto) 1.4 % (0.0-1.8); Eosinophils # (Auto) 0.1 K/mm3 (0.0-0.4); Eosinophils % (Auto) 1.6 % (0.0-4.3); Hematocrit 43.2 % (35.5-45.6); Hemoglobin 14.1 gm/dl (11.8-15.2); Lymphocytes # (Auto) 1.3 K/mm3 (1.2-5.4); Lymphocytes % (Auto) 17.2 % (13.4-35.0); Mean Corpuscular HGB Conc 33 % (32-34); Mean Corpuscular Volume 85 fl (84-94); Monocytes # (Auto) 0.4 K/mm3 (0.0-0.8); Monocytes % (Auto) 4.6 % (0.0-7.3); Platelet Count 268 K/mm3 (140-440); Red Blood Count 5.07 M/mm3 (3.65-5.03); Red Cell Distribution Width 15.5 % (13.2-15.2)
[2019-08-24] MEDS ORDERED: ONDANSETRON 4 MG/2 ML INJ IV ONE (08:39)
[2019-08-24 08:46] LABS: INR 0.92 (0.87-1.13)
[2019-08-24 08:47] LABS: Partial Thromboplastin Time 22.8 Sec. (24.2-36.6)
[2019-08-24] MEDS ORDERED: MORPHINE 4 MG/1 ML INJ IV ONE (08:47)
[2019-08-24 08:56] LABS: BUN/Creatinine Ratio 13; Blood Urea Nitrogen 9 mg/dL (9-20); Calcium 9.3 mg/dL (8.4-10.2); Hemolysis Index 11
--- NOTE | 2019-08-24 10:23 | Consultation ---
History of Present Illness Consult date: 08/24/19 Requesting physician: SYED SHAW Consult reason: chest pain History of present illness: The patient has a history of CAD, status post CABG in 12/2017. He underwent PCI to the RCA in May 2019 after presenting with chest pain. He claims that he did well for the first month after his intervention. Since July 2019, he has been experiencing recurrent, sharp precordial chest pain radiating to his left upper extremity. His chest pain is not particularly related to his level of activity. Due to worsening of symptoms, he presented to the emergency department. Past History Past Medical History: CAD, hypertension, hyperlipidemia Past Surgical History: CABG, PTCA (Stenting of RCA) Social history: smoking (marijuana every now and then. No cigarettes), other Family history: CAD Medications and Allergies Allergies Allergy/AdvReac Type Severity Reaction Status Date / Time No Known Allergies Allergy Verified 02/04/19 16:38 Home Medications Medication Instructions Recorded Confirmed Last Taken Type traMADol [Ultram 50 MG tab] 50 mg PO Q6HR PRN #7 tablet 04/29/19 06/07/19 Unknown Rx Aspirin 325 mg PO QDAY #30 tablet 06/09/19 Unknown Rx AtorvaSTATin [Lipitor] 80 mg PO QHS #30 tablet 06/09/19 Unknown Rx Clopidogrel [Plavix] 75 mg PO QDAY #30 tablet 06/09/19 Unknown Rx Gabapentin [Neurontin] 800 mg PO TID #90 tablet 06/09/19 Unknown Rx HYDROcodone/APAP 5-325 [[place] 1 each PO Q8H PRN #8 tablet 06/09/19 Unknown Rx 5-325 mg TAB] ISOSORBIDE MONOnitrate [Imdur ER] 30 mg PO QDAY #30 tablet 06/09/19 Unknown Rx Lisinopril/Hydrochlorothiazide 1 tab PO QDAY #30 tab 06/09/19 Unknown Rx [Zestoretic 20-12.5 mg] Losartan [Cozaar] 50 mg PO QDAY #30 tablet 06/09/19 Unknown Rx Metoprolol [Lopressor TAB] 50 mg PO BID 30 Days #60 tablet 06/09/19 Unknown Rx Nitroglycerin [Nitrostat] 0.4 mg SL Q5M PRN #30 tablet 06/09/19 Unknown Rx Pantoprazole [Protonix TAB] 40 mg PO QDAY #30 tablet 06/09/19 Unknown Rx tiZANidine [Zanaflex 4mg TAB] 4 mg PO QHS #30 tablet 06/09/19 Unknown Rx Review of Systems Constitutional: no fever, no chills Ears, nose, mouth and throat: no ear pain, no ear discharge, no sore throat Cardiovascular: chest pain, no shortness of breath Respiratory: no cough, no hemoptysis, no shortness of breath Gastrointestinal: nausea, no abdominal pain, no vomiting, no diarrhea, no constipation Genitourinary Male: no dysuria, no urinary frequency Musculoskeletal: no neck stiffness, no neck pain, no myalgias Integumentary: no rash, no pruritis Neurological: no weakness, no parathesias, no headaches Endocrine: no cold intolerance, no heat intolerance Hematologic/Lymphatic: no easy bruising, no easy bleeding Allergic/Immunologic: no urticaria, no wheezing Physical Examination Vital Signs Temp Pulse Resp BP Pulse Ox 97.5 F L 70 18 165/80 98 08/24/19 07:10 08/24/19 07:10 08/24/19 07:10 08/24/19 07:10 08/24/19 07:10 General appearance: mild distress HEENT: Positive: EOMI, Normocephaly, Mucus Membranes Moist Neck: Positive: neck supple, trachea midline Cardiac: Positive: Reg Rate and Rhythm, S1/S2 Lungs: Positive: clear to auscultation Neuro: Positive: Grossly Intact Abdomen: Positive: Soft, Active Bowel Sounds. Negative: Tender Skin: Positive: Clear. Negative: Rash Musculoskeletal: Normal Range of Motion Extremities: Present: normal. Absent: edema Results 08/24/19 08:27 08/24/19 08:27 Coagulation 08/24/19 Range/Units 08:27 PT 12.1 L (12.2-14.9) Sec. INR 0.92 (0.87-1.13) APTT 22.8 L (24.2-36.6) Sec. CBC 08/24/19 Range/Units 08:27 WBC 7.6 (4.5-11.0) K/mm3 RBC 5.07 H (3.65-5.03) M/mm3 Hgb 14.1 (11.8-15.2) gm/dl Hct 43.2 (35.5-45.6) % Plt Count 268 (140-440) K/mm3 Lymph # 1.3 (1.2-5.4) K/mm3 [place] # 0.4 (0.0-0.8) K/mm3 Eos # 0.1 (0.0-0.4) K/mm3 Baso # 0.1 (0.0-0.1) K/mm3 Comprehensive Metabolic Panel 08/24/19 Range/Units 08:27 Sodium 142 (137-145) mmol/L Potassium 4.1 (3.6-5.0) mmol/L Chloride 103.7 (98-107) mmol/L Carbon Dioxide 24 (22-30) mmol/L BUN 9 (9-20) mg/dL Creatinine 0.7 L (0.8-1.5) mg/dL Glucose 98 (75-100) mg/dL Calcium 9.3 (8.4-10.2) mg/dL - Imaging and Cardiology EKG: image reviewed EKG interpretations - Telemetry EKG Rhythm: Sinus Rhythm Assessment and Plan Optimize anti-ischemic regimen. Schedule for Lexiscan stress MPI in am. - Patient Problems (1) Chest pain Current Visit: Yes Status: Acute (2) CAD (coronary artery disease) Current Visit: Yes Status: Chronic Qualifiers: Coronary Disease-Associated Artery/Lesion type: bypass graft, autologous vein (3) Stented coronary artery Current Visit: Yes Status: Chronic (4) S/P CABG (coronary artery bypass graft) Current Visit: Yes Status: Chronic (5) HTN (hypertension) Current Visit: Yes Status: Chronic Qualifiers: Hypertension type: essential hypertension Qualified Code(s): I10 - Essential (primary) hypertension
[2019-08-24] MEDS ORDERED: CLOPIDOGREL 75 MG TAB PO SCH (11:00)
[2019-08-24] MEDS ORDERED: METOPROLOL TARTRATE 50 MG TAB PO SCH (11:00)
--- NOTE | 2019-08-24 12:18 | History and Physical Report ---
History of Present Illness Date of examination: 08/24/19 Date of admission: 08/24/19 09:44 Chief complaint: Chest pains History of present illness: Patient was seen and examined. Follow-up on current diagnosis. No overnight events reported to me. Patient denies any chest pain, shortness breath, nausea/vomiting or severe headaches. Imaging, nursing note, chart, labs and old chart reviewed. Discussed with patient. PMH: as hpi PSH: CABG, LHC x 2, Cholecystectomy, Tonsillectomy, Right Ear surgery to repair TM age 8yo, Right Orchiectomy due to Epidymitis SH: no tobacco, no Etoh abuse, occasion marijuana FH: Father of massive heart attack at age 47yo, Brother had heart attack and stroke early 40s, Hypertension ROS: Constitutional: denies: fever ENT: denies: throat or neck pain Respiratory: denies: cough, shortness of breath Cardiovascular: + chest pain Endocrine: denies unexplained weight loss or gain Gastrointestinal: denies: abdominal pain, nausea Genitourinary: denies: dysuria Rectal: denies no incontinence, no bleeding, no itching, no discharge Musculoskeletal: denies swelling, myaglia, muscle weakness Skin: denies: rash Neurological: denies: headache Hematological/Lymphatic: denies: easy bleeding or easy bruising Allergic/Immunologic: no urticaria, no allergic rhinitis, no anaphylaxis Psych: denies sadness or hopelessness, SI/HI Past History Past Medical History: CAD, hypertension, hyperlipidemia Past Surgical History: CABG, PTCA (Stenting of RCA) Social history: smoking (marijuana every now and then. No cigarettes), other Family history: CAD Medications and Allergies Allergies Allergy/AdvReac Type Severity Reaction Status Date / Time No Known Allergies Allergy Verified 02/04/19 16:38 Home Medications Medication Instructions Recorded Confirmed Last Taken Type AtorvaSTATin [Lipitor] 80 mg PO QHS #30 tablet 06/09/19 08/24/19 08/23/19 Rx Clopidogrel [Plavix] 75 mg PO QDAY #30 tablet 06/09/19 08/24/19 08/23/19 Rx Gabapentin [Neurontin] 800 mg PO TID #90 tablet 06/09/19 08/24/19 08/23/19 Rx Losartan [Cozaar] 50 mg PO QDAY #30 tablet 06/09/19 08/24/19 08/23/19 Rx Metoprolol [Lopressor TAB] 50 mg PO BID 30 Days #60 tablet 06/09/19 08/24/19 08/23/19 Rx tiZANidine [Zanaflex 4mg TAB] 4 mg PO QHS #30 tablet 06/09/19 08/24/19 08/23/19 Rx Celecoxib [celeBREX] 200 mg PO DAILY 08/24/19 08/24/19 08/23/19 History [place] 10-325 mg TAB 10 mg PO Q4HR 08/24/19 08/24/19 08/23/19 History Promethazine [Phenergan] 25 mg PO BID 08/24/19 08/24/19 08/23/19 History Active Meds: Active Medications Aspirin (Aspirin) 325 mg PO QDAY DOMITILA Atorvastatin Calcium (Lipitor) 80 mg PO QHS DOMITILA Atorvastatin Calcium (Lipitor) 80 mg PO QHS DOMITILA Celecoxib (Celebrex) 200 mg PO DAILY DOMITILA Clopidogrel Bisulfate (Plavix) 75 mg PO QDAY DOMITILA Clopidogrel Bisulfate (Plavix) 75 mg PO QDAY DOMITILA Isosorbide Mononitrate (Imdur) 60 mg PO QDAY DOMITILA Losartan Potassium (Cozaar) 50 mg PO QDAY DOMITILA Metoprolol Tartrate (Lopressor) 50 mg PO BID DOMITILA Metoprolol Tartrate (Lopressor) 50 mg PO BID DOMITILA Miscellaneous Medication (Gabapentin [Neurontin]) 800 mg PO TID DOMITILA Nitroglycerin (Nitro-Bid 2%) 1 inch TP TIDNTG [facility]; Protocol Exam - Physical Exam Narrative exam: Gen: WDWN, NAD, Awake, Alert, Orientated x 3 HEENT: NCAT, EOMI, PERRL, OP Clear Neck: supple, no adenopathy, no thyromegaly, no JVD CVS/Heart: RRR, normal S1S2, pulses present bilaterally Chest/Lungs: CTA B, Symmetrical chest expansion, good air entry bilaterally GI/Abdomen: soft, NTND, good bowel sounds, no guarding or rebound /Bladder: no suprapubic tenderness, no CVA or paraspinal tenderness Extermity/Skin: no c/c/e, no obvious rash MSK: FROM x 4 Neuro: CN 2-12 grossly intact, no new focal deficits Psych: calm - Constitutional Vitals: Temp Pulse Resp BP Pulse Ox 97.5 F L 53 L 16 132/46 99 08/24/19 07:10 08/24/19 10:30 08/24/19 10:30 08/24/19 10:30 08/24/19 10:30 Results - Labs CBC & Chem 7: 08/24/19 08:27 08/24/19 08:27 Labs: Abnormal lab results 08/24/19 08/24/19 08/24/19 Range/Units 08:27 08:27 08:27 RBC 5.07 H (3.65-5.03) M/mm3 RDW 15.5 H (13.2-15.2) % Seg Neutrophils % 75.2 H (40.0-70.0) % PT 12.1 L (12.2-14.9) Sec. APTT 22.8 L (24.2-36.6) Sec. Creatinine 0.7 L (0.8-1.5) mg/dL Assessment and Plan Patient is a 54 yo man with a history of OA, peripheral neuropathy/sciatica, hypertension, chronic low back pains, hypertension, CAD s/p remote CABG and more recect PCI with CHAO of mid and proximal RCA in May 2019 who presents to [facility] ED with moderate left sided sharp radiating to left arm intermittent chest pains that begun yesterday around 2am. There is no aggravating or relieving factors. The chest pains feels like prior chest pains except this chest pains is repe titive which comes and goes in seconds. He denies n/v/diaphoresis/cough/sob/trauma. He says he is compliant with medications. * pCXR: negative for acute findings * EKG shows NSR with old q waves in inferior leads (my reading) -Chest pains, Angina most likely: Cardiology consulted, input noted, stress test in AM -Hypertension: continue low salt diet, BB, ARB, check TSH -Dyslipidemia: continue Statin, check lipid panel -CAD s/p coronary stent: continue plavix -Peripheral neuropathy: continue gabapention -FH of premature early CAD DVT ppx reviewed, sq heparin
[2019-08-24] MEDS: NITROGLYCERIN 2% OINT 1 GM TP SCH ×2 (13:00→18:23)
[2019-08-24] MEDS: GABAPENTIN 400 MG CAP PO SCH ×2 (13:14→21:30)
[2019-08-24] MEDS: LOSARTAN 50 MG TAB PO SCH (13:16)
[2019-08-24] MEDS: CLOPIDOGREL 75 MG TAB PO SCH (13:17)
[2019-08-24] MEDS: METOPROLOL TARTRATE 50 MG TAB PO SCH ×2 (13:19→23:00)
[2019-08-24] MEDS ORDERED: NON-FORMULARY EACH (Gabapentin [Neurontin] 800 MG) PO SCH (14:00)
[2019-08-24] MEDS ORDERED: ACETAMINOPHEN 325 MG TAB PO PRN (16:21)
[2019-08-24] MEDS ORDERED: POLYETHYLENE GLYCOL 3350 17 GM POWDER PO PRN (16:21)
[2019-08-24] MEDS ORDERED: ONDANSETRON 4 MG/2 ML INJ IV PRN (16:21)
[2019-08-24] MEDS: HYDROcodone/ACETAMINOPHEN 10-325MG TAB PO PRN ×2 (16:26→22:58)
[2019-08-25] MEDS: HYDROcodone/ACETAMINOPHEN 10-325MG TAB PO PRN ×4 (04:37→22:33)
[2019-08-25] MEDS: NITROGLYCERIN 2% OINT 1 GM TP SCH (06:21)
[2019-08-25] MEDS ORDERED: REGADENOSON 0.4 MG/5 ML INJ IV ONE (08:00)
[2019-08-25] MEDS: GABAPENTIN 400 MG CAP PO SCH ×3 (08:08→20:44)
[2019-08-25] MEDS: ASPIRIN 325 MG TAB PO SCH (10:29)
[2019-08-25] MEDS: METOPROLOL TARTRATE 50 MG TAB PO SCH ×2 (10:30→22:35)
[2019-08-25] MEDS: CLOPIDOGREL 75 MG TAB PO SCH (10:30)
[2019-08-25] MEDS: CELECOXIB 200 MG CAP PO SCH (10:30)
[2019-08-25] MEDS: LOSARTAN 50 MG TAB PO SCH (10:31)
[2019-08-25] MEDS: amLODIPine 5 MG TAB PO SCH (10:37)
--- NOTE | 2019-08-25 10:45 | Progress Note ---
Assessment and Plan Pt with c/o headache since initiation of nitrates. Will reduce Imdur dosage and initiate norvasc for BP optimization. S/p lexiscan MPI stress test this AM which showed mild inferior ischemia. Pt continues to c/o intermittent chest pain. Coronary angiography recommended for definitive diagnosis. Indications, potential risks and benefits of LHC reviewed with pt and he is agreeable to proceed with LHC in AM. NPO after MN. The patient has been seen in conjunction with Dr. Gonzalez who agrees with the assessment and plan of care. - Patient Problems (1) Chest pain Current Visit: Yes Status: Acute (2) CAD (coronary artery disease) Current Visit: Yes Status: Chronic Qualifiers: Coronary Disease-Associated Artery/Lesion type: bypass graft, autologous vein (3) Stented coronary artery Current Visit: Yes Status: Chronic (4) S/P CABG (coronary artery bypass graft) Current Visit: Yes Status: Chronic (5) HTN (hypertension) Current Visit: Yes Status: Chronic Qualifiers: Hypertension type: essential hypertension Qualified Code(s): I10 - Essential (primary) hypertension (6) Abnormal stress test Current Visit: Yes Status: Acute Subjective Date of service: 08/25/19 Principal diagnosis: cp Interval history: pt for stress test today, c/o intermittent chest pain overnight. also c/o headache since initiation of nitrates. tele reviewed - in SR with SB overnight, HR low 47bpm. Objective Last Vital Signs Temp 98.0 F 08/25/19 07:22 Pulse 62 08/25/19 10:37 Resp 18 08/25/19 07:22 BP 158/87 08/25/19 10:37 Pulse Ox 97 08/25/19 07:22 - Physical Examination General: No Apparent Distress HEENT: Positive: EOMI, Normocephaly, Mucus Membranes Moist Neck: Positive: neck supple, trachea midline Cardiac: Positive: Reg Rate and Rhythm, S1/S2 Lungs: Positive: Decreased Breath Sounds Neuro: Positive: Grossly Intact Abdomen: Positive: Soft, Active Bowel Sounds. Negative: Tender Skin: Positive: Clear. Negative: Rash Musculoskeletal: Normal Range of Motion Extremities: Present: normal. Absent: edema - Imaging and Cardiology EKG: image reviewed
[2019-08-25] MEDS ORDERED: SODIUM CHLORIDE 0.9% 500 ML 500 ML IV SCH (14:00)
--- NOTE | 2019-08-25 16:21 | Progress Note ---
Assessment and Plan Assessment and plan: Patient is a 54 yo man with a history of OA, peripheral neuropathy/sciatica, hypertension, chronic low back pains, hypertension, CAD s/p remote CABG and more recect PCI with CHAO of mid and proximal RCA in May 2019 who presents to [facility] ED with moderate left sided sharp radiating to left arm intermittent chest pains that begun yesterday around 2am. There is no aggravating or relieving factors. The chest pains feels like prior chest pains except this chest pains is repetitive which comes and goes in seconds. He denies n/v/diaphoresis/cough/sob/trauma. He says he is compliant with medications. * pCXR: negative for acute findings * EKG shows NSR with old q waves in inferior leads (my reading) -Chest pains, Angina most likely and ongoing chest pains, s/p lexiscan MPI stress test which showed mild inferior ischemia. Pt continues to c/o intermittent chest pain. LHC in AM -Hypertension: continue low salt diet, BB, ARB, check TSH -Dyslipidemia: continue Statin, check lipid panel -CAD s/p coronary stent: continue plavix -Peripheral neuropathy: continue gabapention -FH of premature early CAD with father dying at age 47 yo with massive heart attack, also brother with AMI in his 40s DVT ppx reviewed, sq heparin History Interval history: Patient was seen and examined. Follow-up on current diagnosis of chest pains, which still comes and goes and down the left arm. No overnight events reported to me. Patient denies any nausea/vomiting or severe headaches. Imaging, nursing note, chart, labs and old chart reviewed. Discussed with patient. Hospitalist Physical - Physical exam Narrative exam: Gen: WDWN, NAD, Awake, Alert, Orientated x 3 HEENT: NCAT, EOMI, PERRL, OP Clear Neck: supple, no adenopathy, no thyromegaly, no JVD CVS/Heart: RRR, normal S1S2, pulses present bilaterally Chest/Lungs: CTA B, Symmetrical chest expansion, good air entry bilaterally GI/Abdomen: soft, NTND, good bowel sounds, no guarding or rebound /Bladder: no suprapubic tenderness, no CVA or paraspinal tenderness Extermity/Skin: no c/c/e, no obvious rash MSK: FROM x 4 Neuro: CN 2-12 grossly intact, no new focal deficits Psych: calm - Constitutional Vitals: Temp Pulse Resp BP Pulse Ox 98.7 F 63 18 179/97 97 08/25/19 15:36 08/25/19 15:36 08/25/19 15:36 08/25/19 15:36 08/25/19 15:36 General appearance: Absent: mild distress Results - Labs CBC & Chem 7: 08/24/19 08:27 08/24/19 08:27 Labs: Laboratory Last Values WBC 7.6 K/mm3 (4.5-11.0) 08/24/19 08:27 RBC 5.07 M/mm3 (3.65-5.03) H 08/24/19 08:27 Hgb 14.1 gm/dl (11.8-15.2) 08/24/19 08:27 Hct 43.2 % (35.5-45.6) 08/24/19 08:27 MCV 85 fl (84-94) 08/24/19 08:27 MCH 28 pg (28-32) 08/24/19 08:27 MCHC 33 % (32-34) 08/24/19 08:27 RDW 15.5 % (13.2-15.2) H 08/24/19 08:27 Plt Count 268 K/mm3 (140-440) 08/24/19 08:27 Lymph % (Auto) 17.2 % (13.4-35.0) 08/24/19 08:27 [place] % (Auto) 4.6 % (0.0-7.3) 08/24/19 08:27 Eos % (Auto) 1.6 % (0.0-4.3) 08/24/19 08:27 Baso % (Auto) 1.4 % (0.0-1.8) 08/24/19 08:27 Lymph # 1.3 K/mm3 (1.2-5.4) 08/24/19 08:27 [place] # 0.4 K/mm3 (0.0-0.8) 08/24/19 08:27 Eos # 0.1 K/mm3 (0.0-0.4) 08/24/19 08:27 Baso # 0.1 K/mm3 (0.0-0.1) 08/24/19 08:27 Seg Neutrophils % 75.2 % (40.0-70.0) H 08/24/19 08:27 Seg Neutrophils # 5.7 K/mm3 (1.8-7.7) 08/24/19 08:27 PT 12.1 Sec. (12.2-14.9) L 08/24/19 08:27 INR 0.92 (0.87-1.13) 08/24/19 08:27 APTT 22.8 Sec. (24.2-36.6) L 08/24/19 08:27 Sodium 142 mmol/L (137-145) 08/24/19 08:27 Potassium 4.1 mmol/L (3.6-5.0) 08/24/19 08:27 Chloride 103.7 mmol/L (98-107) 08/24/19 08:27 Carbon Dioxide 24 mmol/L (22-30) 08/24/19 08:27 Anion Gap 18 mmol/L 08/24/19 08:27 BUN 9 mg/dL (9-20) 08/24/19 08:27 Creatinine 0.7 mg/dL (0.8-1.5) L 08/24/19 08:27 Estimated GFR > 60 ml/min 08/24/19 08:27 BUN/Creatinine Ratio 13 % 08/24/19 08:27 Glucose 98 mg/dL (75-100) 08/24/19 08:27 Calcium 9.3 mg/dL (8.4-10.2) 08/24/19 08:27 Troponin T < 0.010 ng/mL (0.00-0.029) 08/24/19 14:04 Active Medications - Current Medications Current Medications: Generic Name Dose Route Start Last Admin Trade Name Freq PRN Reason Stop Dose Admin Acetaminophen 650 mg 08/24/19 16:21 Tylenol PO Q6H PRN Non Cardiac Pain or Temp>100.5 Acetaminophen/Hydrocodone Bitart 1 each 08/24/19 16:20 08/25/19 16:03 [place] 10/325 PO 1 each Q4H PRN Administration Pain , Severe (7-10) Amlodipine Besylate 5 mg 08/25/19 11:00 08/25/19 10:37 Norvasc PO 5 mg QDAY DOMITILA Administration Aspirin 325 mg 08/25/19 10:00 08/25/19 10:29 Aspirin PO 325 mg QDAY DOMITILA Administration Atorvastatin Calcium 80 mg 08/24/19 22:00 08/24/19 22:57 Lipitor PO 80 mg QHS DOMITILA Administration Celecoxib 200 mg 08/25/19 10:00 08/25/19 10:30 Celebrex PO 200 mg DAILY DOMITILA Administration Clopidogrel Bisulfate 75 mg 08/24/19 13:00 08/25/19 10:30 Plavix PO 75 mg QDAY DOMITILA Administration Gabapentin 800 mg 08/24/19 14:00 08/25/19 15:14 Neurontin PO 800 mg TID DOMITILA Administration Sodium Chloride 500 mls @ 50 mls/hr 08/25/19 14:00 Nacl 0.9% 500 Ml IV 08/25/19 23:59 DIRECT DOMITILA Isosorbide Mononitrate 30 mg 08/25/19 11:00 08/25/19 10:37 Imdur PO 30 mg QDAY DOMITILA Administration Losartan Potassium 50 mg 08/24/19 13:00 08/25/19 10:31 Cozaar PO 50 mg QDAY DOMITILA Administration Metoprolol Tartrate 50 mg 08/24/19 13:00 08/25/19 10:30 Lopressor PO 50 mg BID DOMITILA Administration Morphine Sulfate 2 mg 08/24/19 16:21 Morphine IV Q4H PRN Pain , Severe (7-10) Ondansetron HCl 4 mg 08/24/19 16:21 Zofran IV Q4H PRN Nausea And Vomiting Polyethylene Glycol 17 gm 08/24/19 16:21 Miralax 3350 PO QDAY PRN Constipation
[2019-08-25] MEDS: MORPHINE 2 MG/1 ML INJ IV PRN (20:44)
--- NOTE | 2019-08-26 01:13 | Treadmill Report ---
LEXISCAN STRESS TEST REPORT REASON FOR STUDY: Chest pain. STRESS TEST PROTOCOL: The patient received 0.4 mg of Lexiscan intravenously over 10 seconds. Tc-99m tetrofosmin was subsequently injected. Baseline ECG, sinus bradycardia. Lexiscan ECG, no ischemic changes. He had chest pain at baseline, which persisted through the test. No arrhythmias. IMPRESSION: Electrocardiographically negative stress test. Nuclear imaging report to follow. JOB# [id number] JOSÉ MIGUEL/NTS
--- NOTE | 2019-08-26 02:46 | Treadmill Report ---
THALLIUM REPORT REASON FOR STUDY: Chest pain. IMAGING PROTOCOL: The patient received 10 mCi of technetium-99m Tc-99m Tetrofosmin for rest imaging, and 28 mCi of technetium-99m Tetrofosmin for stress imaging. Imaging for all procedures was completed 30-90 minutes following the initial injection of Technetium 99m Tetrofosmin. SPECT imaging in the 180 degree arc was performed in the right anterior oblique projection. Computerized reconstruction of the images was performed for analysis. NUCLEAR IMAGING RESULTS: Normal left ventricular cavity size with no change from stress to rest. Distribution of radionuclide within the left ventricle revealed a small area of photo-induction involving the inferior and inferoapical wall. The degree of photo-induction is moderate. Rest imaging showed partial improvement in this defect. Gated SPECT imaging revealed normal global LV systolic function with no significant wall motion abnormalities. The calculated left ventricular ejection fraction is 53%. IMPRESSION: Small, partially reversible inferior and inferoapical defect. Normal global LV systolic function with no significant wall motion abnormalities. EF 53%. These findings suggest a small area of prior infarction with mild residual ischemia in the right coronary artery territory. JOB# [id number] JOSÉ MIGUEL/MYA
[2019-08-26] MEDS: MORPHINE 2 MG/1 ML INJ IV PRN ×2 (03:04→14:23)
[2019-08-26 04:19] LABS: Basophils # (Auto) 0.1 K/mm3 (0.0-0.1); Eosinophils # (Auto) 0.2 K/mm3 (0.0-0.4); Hematocrit 39.6 % (35.5-45.6); Hemoglobin 13.4 gm/dl (11.8-15.2); Lymphocytes # (Auto) 1.6 K/mm3 (1.2-5.4); Lymphocytes % (Auto) 22.5 % (13.4-35.0); Mean Corpuscular HGB Conc 34 % (32-34); Mean Corpuscular Volume 85 fl (84-94); Monocytes # (Auto) 0.6 K/mm3 (0.0-0.8); Monocytes % (Auto) 7.7 % (0.0-7.3); Platelet Count 243 K/mm3 (140-440); Red Blood Count 4.66 M/mm3 (3.65-5.03)
[2019-08-26 04:31] LABS: BUN/Creatinine Ratio 14; Blood Urea Nitrogen 10 mg/dL (9-20); Calcium 8.4 mg/dL (8.4-10.2); Hemolysis Index 7
[2019-08-26 04:32] LABS: INR 0.91 (0.87-1.13)
[2019-08-26] MEDS ORDERED: CLOPIDOGREL 300 MG TAB ONE (07:44)
[2019-08-26] MEDS ORDERED: ASPIRIN 325 MG TAB ONE (07:45)
[2019-08-26] MEDS: CLOPIDOGREL 75 MG TAB PO SCH ×2 (07:45→10:59)
[2019-08-26] MEDS: ASPIRIN 325 MG TAB PO SCH (07:46)
[2019-08-26] MEDS ORDERED: CLOPIDOGREL 75 MG TAB ONE (07:48)
[2019-08-26] MEDS ORDERED: SODIUM CHLORIDE 0.9% 500 ML 500 ML ONE (07:59)
[2019-08-26] MEDS ORDERED: HEPARIN/NS 5000 UNIT/500ML 1,000 ML IR ONE (08:04)
[2019-08-26] MEDS ORDERED: HEPARIN 10,000 UNITS/10 ML VIAL ONE (08:05)
[2019-08-26] MEDS: fentaNYL 100 MCG/2 ML INJ ONE ×3 (08:26→08:36)
[2019-08-26] MEDS: LIDOCAINE (2%) 20 MG/1 ML VIAL 20 ML MDV INFILTRATI ONE ×2 (08:27→08:34)
[2019-08-26] MEDS: MIDAZOLAM 2 MG/2 ML INJ ONE ×3 (08:27→08:38)
[2019-08-26] MEDS ORDERED: NITROGLYCERIN SYRINGE 0 ML ONE (08:33)
[2019-08-26] MEDS ORDERED: NITROGLYCERIN 0.4 MG TAB SUBL SL ONE (08:45)
--- NOTE | 2019-08-26 09:05 | Progress Note ---
Assessment and Plan pt has patent rca and patent bypass graft, non cardiac chest pain , cont bp and chol control may [facility] from [facility] post cath care - Patient Problems (1) Hyperlipemia, mixed Current Visit: Yes Status: Chronic (2) Chest pain Current Visit: Yes Status: Acute Qualifiers: Chest pain type: unspecified Qualified Code(s): R07.9 - Chest pain, unspecified (3) CAD (coronary artery disease) Current Visit: Yes Status: Chronic Qualifiers: Coronary Disease-Associated Artery/Lesion type: bypass graft, autologous vein Associated angina: without angina Qualified Code(s): I25.810 - Atherosclerosis of coronary artery bypass graft(s) without angina pectoris (4) HTN (hypertension) Current Visit: Yes Status: Chronic Qualifiers: Hypertension type: essential hypertension Qualified Code(s): I10 - Essential (primary) hypertension (5) S/P CABG (coronary artery bypass graft) Current Visit: Yes Status: Chronic Subjective Date of service: 08/26/19 Principal diagnosis: cp Interval history: pt has chest pain Objective Vital Signs Temp Pulse Resp BP BP Pulse Ox 08/26/19 04:33 98.0 F 60 18 153/91 98 08/26/19 03:04 18 08/26/19 01:00 60 08/25/19 23:58 98.0 F 57 L 18 157/82 98 08/25/19 23:33 20 08/25/19 22:33 20 08/25/19 20:44 20 08/25/19 19:22 98.0 F 70 18 147/72 97 08/25/19 19:04 57 L 18 157/76 95 08/25/19 15:36 98.7 F 63 18 179/97 97 08/25/19 10:37 62 158/87 08/25/19 10:31 62 158/87 08/25/19 10:30 62 158/87 - Physical Examination General: No Apparent Distress HEENT: Positive: EOMI, Normocephaly, Mucus Membranes Moist Neck: Positive: neck supple, trachea midline Cardiac: Positive: Reg Rate and Rhythm Lungs: Positive: clear to auscultation Neuro: Positive: Grossly Intact Abdomen: Positive: Soft, Active Bowel Sounds. Negative: Tender Skin: Positive: Clear. Negative: Rash Musculoskeletal: Normal Range of Motion Extremities: Present: normal. Absent: edema - Labs and Meds Coagulation 08/26/19 Range/Units 03:23 PT 12.0 L (12.2-14.9) Sec. INR 0.91 (0.87-1.13) CBC 08/26/19 Range/Units 03:23 WBC 7.2 (4.5-11.0) K/mm3 RBC 4.66 (3.65-5.03) M/mm3 Hgb 13.4 (11.8-15.2) gm/dl Hct 39.6 (35.5-45.6) % Plt Count 243 (140-440) K/mm3 Lymph # 1.6 (1.2-5.4) K/mm3 [place] # 0.6 (0.0-0.8) K/mm3 Eos # 0.2 (0.0-0.4) K/mm3 Baso # 0.1 (0.0-0.1) K/mm3 Comprehensive Metabolic Panel 08/26/19 Range/Units 03:23 Sodium 141 (137-145) mmol/L Potassium 4.1 (3.6-5.0) mmol/L Chloride 106.6 (98-107) mmol/L Carbon Dioxide 26 (22-30) mmol/L BUN 10 (9-20) mg/dL Creatinine 0.7 L (0.8-1.5) mg/dL Glucose 87 (75-100) mg/dL Calcium 8.4 (8.4-10.2) mg/dL - Imaging and Cardiology EKG: image reviewed Cardiac cath: report reviewed (lt main 50% lad competive flow, patent roblero to lad, lcx proximal 80%, patent svg to om1 and rca proximal and mid stents patent and normal lv function) - Telemetry EKG Rhythm: Sinus Rhythm
--- NOTE | 2019-08-26 09:45 | Cardiac Catherization Report ---
HEART CATHETERIZATION WITH BYPASS GRAFT VENOUS AND INTERNAL MAMMARY BYPASS GRAFT CLINICAL INFORMATION: This is a 54-year-old gentleman with history of bypass surgery, had a cardiac catheterization in May, which revealed patent LIMON to LAD, patent SVG to OM and occluded SVG graft to RCA, had PCI of the RCA with 2 drug-eluting Xience 4.0 x 15 at 3.5 x 15, presents with recurrent chest pain with a negative troponin, positive stress test here for left heart catheterization. Procedure was done, moderate sedation. Total sedation time was 16 minutes, started at 8:32 a.m., finished at 8:48 a.m. Procedure was done via right femoral artery, sterile technique, local anesthesia, 6-Bahamian groin sheath inserted. Left system engaged with JL4 catheter. Left main large caliber vessel, mid has a 50% eccentric lesion. LAD has competitive flow with mild disease. Diagonal 1 is a small caliber vessel, it is patent. Circumflex proximal is 80%, has competitive flow in OM1, SVG to OM was engaged with JR4 catheter, is a large caliber graft, free of disease at the ostium, body and anastomosis site, feeds into a small OM1 with multiple branches. LIMON was engaged with IM catheter, it is a medium caliber graft, free of disease at the ostium, body, and anastomosis site into the mid LAD with retrograde and antegrade flow. RCA engaged with JR4 catheter, is a large caliber dominant vessel, proximal, mid stent widely patent, distal patent with mild irregularities. PDA and PLV are [id number] caliber and patent. LV gram done in NEPALESE and MAHMOOD view shows normal LV function, EF 55-60%, LVEDP 17 mmHg, LV is 160/8. Aortic is 167/82. No gradient across the aortic valve on pullback. A 6-Bahamian, and 5-Bahamian catheters all taken over a guidewire, 6-Bahamian groin sheath was discontinued. Manual pressure held. No hematoma, no bleeding. SUMMARY: 1. Left main 50% with patent LIMON to LAD. LAD has competitive flow. Circumflex proximal is 80% with a patent SVG to OM1: 2. RCA proximal, mid stent widely patent. 3. Normal LV function. Continue medical management for noncardiac chest pain. Discussed in detail with the patient and advised compliance with medications. [facility]# [id number] MARIO/MYA
[2019-08-26] MEDS ORDERED: ASPIRIN 81 MG TAB CHEW PO SCH (10:00)
[2019-08-26] MEDS: HYDROcodone/ACETAMINOPHEN 10-325MG TAB PO PRN ×2 (10:33→15:43)
[2019-08-26] MEDS: amLODIPine 5 MG TAB PO SCH (10:34)
[2019-08-26] MEDS: METOPROLOL TARTRATE 50 MG TAB PO SCH (10:35)
[2019-08-26] MEDS: LOSARTAN 50 MG TAB PO SCH (10:36)
[2019-08-26] MEDS: CELECOXIB 200 MG CAP PO SCH (10:36)
[2019-08-26] MEDS: GABAPENTIN 400 MG CAP PO SCH ×2 (10:36→16:28)
[2019-08-26 10:39] VITALS: BP 133/71
--- NOTE | 2019-08-26 15:02 | Discharge Summary ---
Providers - Providers Date of Admission: 08/25/19 16:00 Date of discharge: 08/26/19 Attending physician: LAW PEARCE 08/24/19 08:11 Consult to Physician [CONS] Stat Comment: Consulting Provider: MARVIN STEVENS Physician Instructions: Reason For Exam: angina 08/26/19 08:59 Consult to Cardiac Rehabilitation [CONS] Routine Reason For Exam: Cardiac Rehab Evaluation Primary care physician: MICROBIOLOGY LAB TECHNICIAN Hospitalization Condition: Stable Hospital course: Patient is a 54 yo man with a history of OA, peripheral neuropathy/sciatica, hypertension, chronic low back pains, hypertension, CAD s/p remote CABG and more recect PCI with CHAO of mid and proximal RCA in May 2019 who presents to [facility] ED with moderate left sided sharp radiating to left arm intermittent chest pains that begun yesterday around 2am. There is no aggravating or relieving factors. The chest pains feels like prior chest pains except this chest pains is repetit johanny which comes and goes in seconds. He denies n/v/diaphoresis/cough/sob/trauma. He says he is compliant with medications. * pCXR: negative for acute findings * EKG shows NSR with old q waves in inferior leads (my reading) Discharge Diagnoses: -Chest pains, Angina most likely and ongoing chest pains, s/p lexiscan MPI stress test which showed mild inferior ischemia. C done and unremarkable, pt ran out of his plavix and would like a script for it -Hypertension: continue low salt diet, BB, ARB, check TSH -Dyslipidemia: continue Statin, check lipid panel -CAD s/p coronary stent: continue plavix -Peripheral neuropathy: continue gabapention -FH of premature early CAD with father dying at age 47 yo with massive heart attack, also brother with AMI in his 40s Disposition: DC-01 TO HOME OR SELFCARE Time spent for discharge: 35 minutes Core Measure Documentation - Palliative Care Palliative Care/ Comfort Measures: Not Applicable - Core Measures Any of the following diagnoses?: none - VTE Discharge Requirements Deep Vein Thrombosis/Pulmonary Embolism Present on Admission: No Has pt received <5 days of overlap therapy or INR<2.0: No Anticoagulant overlap therapy prescribed at discharge: No Contraindication No Overlap Therapy order at DC: Not Indicated Exam - Physical Exam Narrative exam: Gen: WDWN, NAD, Awake, Alert, Orientated x 3 HEENT: NCAT, EOMI, PERRL, OP Clear Neck: supple, no adenopathy, no thyromegaly, no JVD CVS/Heart: RRR, normal S1S2, pulses present bilaterally Chest/Lungs: CTA B, Symmetrical chest expansion, good air entry bilaterally GI/Abdomen: soft, NTND, good bowel sounds, no guarding or rebound /Bladder: no suprapubic tenderness, no CVA or paraspinal tenderness Extermity/Skin: no c/c/e, no obvious rash MSK: FROM x 4 Neuro: CN 2-12 grossly intact, no new focal deficits Psych: calm - Constitutional Vitals: Temp Pulse Resp BP Pulse Ox 98.0 F 71 18 133/71 98 08/26/19 04:33 08/26/19 10:37 08/26/19 10:00 08/26/19 10:37 08/26/19 10:00 Plan Activity: other (no strenous activity unless cleared by PCP) Diet: low salt Follow up with: MARVIN STEVENS MD [Staff Physician] - 7 Days MAGGIE COYLE MD [Staff Physician] - 7 Days Prescriptions: AtorvaSTATin [Lipitor] 2 tab PO QHS #60 tablet Aspirin [Aspirin BABY CHEW TAB] 81 mg PO QDAY #30 tab.chew Losartan [Cozaar] 50 mg PO QDAY #30 tablet ISOSORBIDE MONOnitrate [Imdur ER] 30 mg PO DAILY #30 tab.er.24h Metoprolol [Lopressor TAB] 50 mg PO BID 30 Days #60 tablet Gabapentin [Neurontin] 800 mg PO TID #90 tablet HYDROcodone/APAP 10-325 [[place] 10-325 mg TAB] 1 each PO Q4H PRN #20 tablet PRN Reason: Pain , Severe (7-10) amLODIPine [Norvasc] 5 mg PO QDAY #30 tablet Clopidogrel [Plavix] 75 mg PO QDAY #30 tablet
== END 2019-08-26 17:09 | disposition home or self-care (01) | DRG 287 ==
LOC: ED 06:22 → 4A 09:44 → OBSVTOIN 08-25 16:00
PROVIDERS: ADMIT Internal Medicine; ATTEND Internal Medicine
PROC: 4A023N7 Measurement of Cardiac Sampling and Pressure, Left Heart, Percutaneous Approach (ICD-10-PCS; principal; 2019-08-26)
PROC: B2111ZZ Fluoroscopy of Multiple Coronary Arteries using Low Osmolar Contrast (ICD-10-PCS; 2019-08-26)
PROC: B2131ZZ Fluoroscopy of Multiple Coronary Artery Bypass Grafts using Low Osmolar Contrast (ICD-10-PCS; 2019-08-26)
PROC: B2181ZZ Fluoroscopy of Left Internal Mammary Bypass Graft using Low Osmolar Contrast (ICD-10-PCS; 2019-08-26)
PROC: B2151ZZ Fluoroscopy of Left Heart using Low Osmolar Contrast (ICD-10-PCS; 2019-08-26)
DX: I25.718 Atherosclerosis of autologous vein coronary artery bypass graft(s) with other forms of angina pectoris (principal); G62.9 Polyneuropathy, unspecified; M19.90 Unspecified osteoarthritis, unspecified site; G89.29 Other chronic pain; M54.9 Dorsalgia, unspecified; E78.2 Mixed hyperlipidemia; F12.90 Cannabis use, unspecified, uncomplicated; I11.0 Hypertensive heart disease with heart failure; I50.9 Heart failure, unspecified; Z95.1 Presence of aortocoronary bypass graft; Z95.5 Presence of coronary angioplasty implant and graft; Z90.49 Acquired absence of other specified parts of digestive tract; Z82.49 Family history of ischemic heart disease and other diseases of the circulatory system; Z79.899 Other long term (current) drug therapy; Z79.82 Long term (current) use of aspirin; Z86.73 Personal history of transient ischemic attack (TIA), and cerebral infarction without residual deficits
CPT/HCPCS: 36415; 71045; 78452; 80048; 82962; 84484; 85025; 85610; 85730; 93005; 93010; 93017; 93459; 96374; G0378; A9270-GY; A9502; C1894; J1644; J2250; J2270; J2405; J2785; J3010; J7040; Q9967

== ENCOUNTER 2019-11-11 18:20 | Emergency (ER) | payer MEDICARE ==
--- NOTE | 2019-11-11 20:03 | Event Note ---
ED Screening Note ED Screening Note: left sided CP that began yesterday states has been taking nitro with some relief states he has a headache +nausea no vomiting no leg swelling no SOB PMHx CABG, cardiac stent no allergies to meds non smoker non drinker +marijuana This initial assessment/diagnostic orders/clinical plan/treatment(s) is/are subject to change based on patients health status, clinical progression and re- assessment by fellow clinical providers in the ED. Further treatment and workup at subsequent clinical providers discretion. Patient/guardian urged not to elope from the ED as their condition may be serious if not clinically assessed and managed. Initial orders include: CP protocol
[2019-11-11 20:57] LABS: Basophils # (Auto) 0.1 K/mm3 (0.0-0.1); Basophils % (Auto) 1.1 % (0.0-1.8); Eosinophils # (Auto) 0.2 K/mm3 (0.0-0.4); Eosinophils % (Auto) 2.5 % (0.0-4.3); Hematocrit 40.7 % (35.5-45.6); Hemoglobin 13.7 gm/dl (11.8-15.2); Lymphocytes # (Auto) 2.2 K/mm3 (1.2-5.4); Lymphocytes % (Auto) 29.8 % (13.4-35.0); Mean Corpuscular HGB Conc 34 % (32-34); Mean Corpuscular Volume 86 fl (84-94); Monocytes # (Auto) 0.5 K/mm3 (0.0-0.8); Monocytes % (Auto) 6.2 % (0.0-7.3); Platelet Count 201 K/mm3 (140-440); Red Blood Count 4.76 M/mm3 (3.65-5.03); Red Cell Distribution Width 14.8 % (13.2-15.2)
--- NOTE | 2019-11-11 21:02 | XRay Report ---
CHEST PA AND LATERAL VIEWS INDICATION: CP. COMPARISON: 08/24/2019 FINDINGS: Support devices: None. Heart: Within normal limits. Lungs/Pleura: No acute pulmonary or pleural findings. IMPRESSION: 1. No significant abnormality. Signer Name: Daniele Claudio MD Signed: 11/11/2019 8:57 PM Workstation Name: [id number]
[2019-11-11 21:05] LABS: INR 0.94 (0.87-1.13); Partial Thromboplastin Time 22.9 Sec. (24.2-36.6)
[2019-11-11 22:37] LABS: Alanine Aminotransferase 12 units/L (7-56); Albumin 4.2 g/dL (3.9-5); BUN/Creatinine Ratio 13; Blood Urea Nitrogen 10 mg/dL (9-20); Calcium 9.1 mg/dL (8.4-10.2); Hemolysis Index 32
--- NOTE | 2019-11-12 10:13 | Emergency Department Report ---
ED Chest Pain HPI - General Chief Complaint: Chest Pain Stated Complaint: CHEST PAIN Time Seen by Provider: 11/11/19 20:01 Source: patient, EMS Mode of arrival: Ambulatory Limitations: No Limitations - History of Present Illness Initial Comments: 54-year-old male with history of CAD, CABG in the past, presented to ED last night with complaint of chest pain. Patient states pain is intermittent, onset at rest, located in the left chest, nonradiating. Patient now states his main complaint is a headache. He denies any nausea or vomiting. Patient has prior RCA stent placed 5 months ago in May 2019 due to occluded bypass graft. Patient was admitted 2 months ago for similar chest pain and underwent left heart cath which showed patent RCA and patent bypass graft. Patient reports compliance with aspirin and plavix. Denies tobacco use. States does not currently have a heating and ventilating tender. MD Complaint: chest pain -: days(s) (1) Onset: during rest Pain Location: left chest Pain Radiation: none Severity: moderate Quality: sharp, similar to prior CO Consistency: intermittent Improves With: nitroglycerin Worsens With: nothing re: denies: nausea, vomting, diaphoresis, dyspnea Other Symptoms: denies: fever Treatments Prior to Arrival: nitroglycerin - Related Data Previous Rx's Medication Instructions Recorded Last Taken Type Acetaminophen [Acetaminophen TAB] 1 tab PO Q6H PRN #15 tablet 08/26/19 Unknown Rx Aspirin [Aspirin BABY CHEW TAB] 81 mg PO QDAY #30 tab.chew 08/26/19 Unknown Rx AtorvaSTATin [Lipitor] 2 tab PO QHS #60 tablet 08/26/19 Unknown Rx Clopidogrel [Plavix] 75 mg PO QDAY #30 tablet 08/26/19 Unknown Rx Gabapentin [Neurontin] 800 mg PO TID #90 tablet 08/26/19 Unknown Rx HYDROcodone/APAP 10-325 [[place] 1 each PO Q4H PRN #20 tablet 08/26/19 Unknown Rx 10-325 mg TAB] ISOSORBIDE MONOnitrate [Imdur ER] 30 mg PO DAILY #30 tab.er.24h 08/26/19 Unknown Rx Losartan [Cozaar] 50 mg PO QDAY #30 tablet 08/26/19 Unknown Rx Metoprolol [Lopressor TAB] 50 mg PO BID 30 Days #60 tablet 08/26/19 Unknown Rx amLODIPine 5 mg PO QDAY #30 tablet 08/26/19 Unknown Rx tiZANidine [Zanaflex 4mg TAB] 4 mg PO QHS #30 tablet 08/26/19 08/23/19 Rx Allergies Allergy/AdvReac Type Severity Reaction Status Date / Time No Known Allergies Allergy Verified 02/04/19 16:38 Heart Score - HEART Score History: Slightly suspicious EKG: Normal Age: 45-65 Risk factors: > 3 risk factors or hx of atherosclerotic disease Troponin: < normal limit HEART Score: 3 ED Review of Systems ROS: Stated complaint: CHEST PAIN Other details as noted in HPI Comment: All other systems reviewed and negative Constitutional: denies: chills, fever Respiratory: denies: shortness of breath Cardiovascular: chest pain Neurological: headache ED Past Medical Hx - Past Medical History Hx Hypertension: Yes Hx CVA: Yes Hx Congestive Heart Failure: Yes Hx Diabetes: No Hx Asthma: No Hx COPD: No Additional medical history: chronic back pain, sciatica - Surgical History Additional Surgical History: OPEN HEART SURGERY 2017 - Social History Smoking Status: Never Smoker Substance Use Type: Marijuana - Medications Home Medications: Home Medications Medication Instructions Recorded Confirmed Last Taken Type Acetaminophen [Acetaminophen TAB] 1 tab PO Q6H PRN #15 tablet 08/26/19 Unknown Rx Aspirin [Aspirin BABY CHEW TAB] 81 mg PO QDAY #30 tab.chew 08/26/19 Unknown Rx AtorvaSTATin [Lipitor] 2 tab PO QHS #60 tablet 08/26/19 Unknown Rx Clopidogrel [Plavix] 75 mg PO QDAY #30 tablet 08/26/19 Unknown Rx Gabapentin [Neurontin] 800 mg PO TID #90 tablet 08/26/19 Unknown Rx HYDROcodone/APAP 10-325 [[place] 1 each PO Q4H PRN #20 tablet 08/26/19 Unknown Rx 10-325 mg TAB] ISOSORBIDE MONOnitrate [Imdur ER] 30 mg PO DAILY #30 tab.er.24h 08/26/19 Unknown Rx Losartan [Cozaar] 50 mg PO QDAY #30 tablet 08/26/19 Unknown Rx Metoprolol [Lopressor TAB] 50 mg PO BID 30 Days #60 tablet 08/26/19 Unknown Rx amLODIPine 5 mg PO QDAY #30 tablet 08/26/19 Unknown Rx tiZANidine [Zanaflex 4mg TAB] 4 mg PO QHS #30 tablet 08/26/19 08/24/19 08/23/19 Rx ED Physical Exam - General Limitations: No Limitations General appearance: alert, in no apparent distress - Head Head exam: Present: atraumatic, normocephalic - Eye Eye exam: Present: normal appearance - ENT ENT exam: Present: mucous membranes moist - Neck Neck exam: Present: normal inspection - Respiratory Respiratory exam: Present: normal lung sounds bilaterally. Absent: respiratory distress - Cardiovascular Cardiovascular Exam: Present: regular rate, normal rhythm - GI/Abdominal GI/Abdominal exam: Present: soft. Absent: distended, tenderness - Extremities Exam Extremities exam: Present: normal inspection - Neurological Exam Neurological exam: Present: alert, oriented X3, CN II-XII intact. Absent: motor sensory deficit - Psychiatric Psychiatric exam: Present: normal affect, normal mood - Skin Skin exam: Present: warm, dry, intact, normal color ED Course Vital Signs 11/11/19 11/12/19 11/12/19 19:10 10:13 10:43 Temperature 97.8 F Pulse Rate 68 69 69 Respiratory 20 Rate Blood Pressure 185/99 190/86 190/86 Blood Pressure [Left] O2 Sat by Pulse 99 100 Oximetry 11/12/19 11:47 Temperature 98.0 F Pulse Rate 72 Respiratory 18 Rate Blood Pressure Blood Pressure 175/95 [Left] O2 Sat by Pulse 100 Oximetry - Reevaluation(s) Reevaluation #1: 11/12/19 11:40 Of note, prescription drug registry was viewed. Pt received 148 pain pills 1 days ago. oxycodone 10 mg x 28 tabs, and norco 10 mg x 120 tabs. ANDREW score - Andrew Score Age > 65: (0) No Aspirin use within the Past 7 Days: (1) Yes 3 or more CAD Risk Factors: (1) Yes 2 or more Angina events in past 24 hrs: (1) Yes Known CAD with more than 50% Stenosis: (1) Yes Elevated Cardiac Markers: (0) No ST Deviation Greater than 0.5mm: (0) No ANDREW Score: 4 ED Medical Decision Making - Lab Data Result diagrams: 11/11/19 20:34 11/11/19 20:34 - EKG Data -: EKG Interpreted by Pa EKG shows normal: sinus rhythm, axis, intervals, QRS complexes, ST-T waves Rate: normal - EKG Data Interpretation: no acute changes - Radiology Data Radiology results: report reviewed, image reviewed - Medical Decision Making - pt reports chest pain similar to previous episodes - initial EKG and troponin normal - repeat troponin and EKG performed 12 hrs later remain normal - BP elevated, pt given his prescribed meds here in ED w/ mprovement of BP - pt recently underwent cardiac cath 2 mos ago which was normal - since EKG and troponin normal in setting of recent cardiac cath, will d/c home - cardiolgy f/u advised - Differential Diagnosis ACS, atypical chest pain, pneumonia, pulm edema Critical care attestation.: If time is entered above; I have spent that time in minutes in the direct care of this critically ill patient, excluding procedure time. ED Disposition Clinical Impression: Chest pain, HTN (hypertension) Disposition: TO HOME OR SELFCARE Is pt being admited?: No Condition: Stable Instructions: Chest Pain (ED), Hypertension (ED) Referrals: PRIMARY CARE,MD [Primary Care Provider] - 3-5 Days [facility] [Provider Group] - 3-5 Days [facility] [Provider Group] - 3-5 Days Time of Disposition: 11:46
[2019-11-12] MEDS ORDERED: amLODIPine 5 MG TAB PO ONE (10:19)
[2019-11-12] MEDS ORDERED: METOPROLOL TARTRATE 50 MG TAB PO ONE (10:20)
[2019-11-12] MEDS ORDERED: ACETAMINOPHEN 325 MG TAB PO ONE (10:21)
[2019-11-12 11:48] VITALS: BP 175/95
== END 2019-11-12 11:56 | disposition home or self-care (01) ==
LOC: ED 18:20
DX: R07.9 Chest pain, unspecified (principal); I10 Essential (primary) hypertension; F12.10 Cannabis abuse, uncomplicated
CPT/HCPCS: 36415; 71046; 80053; 84484; 85025; 85610; 85730; 93005; 93010; 99284

== ENCOUNTER 2020-11-04 14:03 | Observation (INO) | payer MEDICARE ==
[2020-11-04] MEDS ORDERED: ASPIRIN 325 MG TAB PO ONE (14:51)
--- NOTE | 2020-11-04 14:56 | Emergency Department Report ---
ED Chest Pain HPI - General Chief Complaint: Chest Pain Stated Complaint: CHEST PAIN Time Seen by Provider: 11/04/20 14:34 Source: patient, EMS Mode of arrival: Stretcher Limitations: No Limitations - History of Present Illness Initial Comments: 55-year-old male, history of hypertension, diabetes, CAD, ? CHF, presents to ED with chest pain. Patient reports left-sided chest pain, pressure-like in nature, that was present when he awoke at around 6:00 this morning. Patient states he took a nitro at that time which did not relieve his pain. Patient r eports recurrence of his pain at around noon. He denies any associated nausea, vomiting, diaphoresis, difficulty breathing. Patient denies any tobacco or drug use. Patient reports CABG in 2016. In May 2019, patient had a stent placed secondary to an occluded graft from his CABG. Patient states he is no longer taking Plavix at this time. 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 MD Complaint: chest pain -: This morning Onset: during rest Pain Location: left chest Pain Radiation: none Severity: moderate Severity scale (0 -10): 8 Quality: heaviness Improves With: nitroglycerin Worsens With: nothing re: denies: nausea, vomting, diaphoresis, dyspnea Other Symptoms: denies: cough, fever - Related Data Previous Rx's Medication Instructions Recorded Last Taken Type Acetaminophen [Acetaminophen TAB] 1 tab PO Q6H PRN #15 tablet 08/26/19 11/04/20 Rx 40 mg Aspirin [Aspirin BABY CHEW TAB] 81 mg PO QDAY #30 tab.chew 08/26/19 11/04/20 Rx 40 mg HYDROcodone/APAP 10-325 [[place] 1 each PO Q4H PRN #20 tablet 08/26/19 11/04/20 Rx 10-325 mg TAB] 30 mg Aspirin [Aspirin BABY CHEW TAB] 81 mg PO QDAY #100 tab.chew 11/05/20 Unknown Rx AtorvaSTATin [Lipitor] 80 mg PO QHS tablet 11/05/20 Unknown Rx AtorvaSTATin [Lipitor] 80 mg PO QHS #30 tab 11/05/20 Unknown Rx Clopidogrel [Plavix] 75 mg PO QDAY tablet 11/05/20 Unknown Rx Clopidogrel [Plavix] 75 mg PO QDAY #30 tablet 11/05/20 Unknown Rx Gabapentin 800 mg PO TID capsule 11/05/20 Unknown Rx ISOSORBIDE MONOnitrate [Imdur ER] 30 mg PO DAILY tablet 11/05/20 Unknown Rx Losartan [Cozaar] 50 mg PO QDAY tablet 11/05/20 Unknown Rx Losartan [Cozaar] 50 mg PO QDAY #30 tablet 11/05/20 Unknown Rx Metoprolol [Lopressor TAB] 50 mg PO BID tablet 11/05/20 Unknown Rx Metoprolol [Lopressor TAB] 50 mg PO BID #60 tablet 11/05/20 Unknown Rx Nitroglycerin [Nitro Dur] 0.4 mg SUBLINGUAL QID #25 patch 11/05/20 Unknown Rx Nitroglycerin [Nitro Dur] 0.4 mg TD QDAY #10 patch 11/05/20 Unknown Rx amLODIPine 5 mg PO QDAY #30 tablet 11/05/20 Unknown Rx tiZANidine [Zanaflex 4mg TAB] 4 mg PO BID #60 tablet 11/05/20 Unknown Rx tiZANidine [Zanaflex 4mg TAB] 4 mg PO QHS tablet 11/05/20 Unknown Rx Allergies Allergy/AdvReac Type Severity Reaction Status Date / Time No Known Allergies Allergy Verified 02/04/19 16:38 Heart Score - HEART Score History: Slightly suspicious EKG: Normal Age: 45-65 Risk factors: > 3 risk factors or hx of atherosclerotic disease Troponin: < normal limit HEART Score: 3 ED Review of Systems ROS: Stated complaint: CHEST PAIN Other details as noted in HPI Comment: All other systems reviewed and negative Constitutional: denies: fever Respiratory: denies: cough, shortness of breath Cardiovascular: chest pain Gastrointestinal: denies: nausea, vomiting ED Past Medical Hx - Past Medical History Hx Hypertension: Yes Hx CVA: Yes Hx Congestive Heart Failure: Yes Hx Diabetes: No Hx Asthma: No Hx COPD: No Additional medical history: chronic back pain, sciatica - Surgical History Additional Surgical History: OPEN HEART SURGERY 2018 - Social History Smoking Status: Never Smoker Substance Use Type: None - Medications Home Medications: Home Medications Medication Instructions Recorded Confirmed Last Taken Type Acetaminophen [Acetaminophen TAB] 1 tab PO Q6H PRN #15 tablet 08/26/19 11/04/20 11/04/20 Rx 40 mg Aspirin [Aspirin BABY CHEW TAB] 81 mg PO QDAY #30 tab.chew 08/26/19 11/04/2011/04/20 Rx 40 mg HYDROcodone/APAP 10-325 [[place] 1 each PO Q4H PRN #20 tablet 08/26/19 11/04/20 11/04/20 Rx 10-325 mg TAB] 30 mg Aspirin [Aspirin BABY CHEW TAB] 81 mg PO QDAY #100 tab.chew 11/05/20 Unknown Rx AtorvaSTATin [Lipitor] 80 mg PO QHS tablet 11/05/20 Unknown Rx AtorvaSTATin [Lipitor] 80 mg PO QHS #30 tab 11/05/20 Unknown Rx Clopidogrel [Plavix] 75 mg PO QDAY tablet 11/05/20 Unknown Rx Clopidogrel [Plavix] 75 mg PO QDAY #30 tablet 11/05/20 Unknown Rx Gabapentin 800 mg PO TID capsule 11/05/20 Unknown Rx ISOSORBIDE MONOnitrate [Imdur ER] 30 mg PO DAILY tablet 11/05/20 Unknown Rx Losartan [Cozaar] 50 mg PO QDAY tablet 11/05/20 Unknown Rx Losartan [Cozaar] 50 mg PO QDAY #30 tablet 11/05/20 Unknown Rx Metoprolol [Lopressor TAB] 50 mg PO BID tablet 11/05/20 Unknown Rx Metoprolol [Lopressor TAB] 50 mg PO BID #60 tablet 11/05/20 Unknown Rx Nitroglycerin [Nitro Dur] 0.4 mg SUBLINGUAL QID #25 patch 11/05/20 Unknown Rx Nitroglycerin [Nitro Dur] 0.4 mg TD QDAY #10 patch 11/05/20 Unknown Rx amLODIPine 5 mg PO QDAY #30 tablet 11/05/20 Unknown Rx tiZANidine [Zanaflex 4mg TAB] 4 mg PO BID #60 tablet 11/05/20 Unknown Rx tiZANidine [Zanaflex 4mg TAB] 4 mg PO QHS tablet 11/05/20 Unknown Rx ED Physical Exam - General Limitations: No Limitations General appearance: alert, in no apparent distress - Head Head exam: Present: atraumatic, normocephalic - Eye Eye exam: Present: normal appearance, EOMI - ENT ENT exam: Present: mucous membranes moist - Neck Neck exam: Present: normal inspection - Respiratory Respiratory exam: Present: normal lung sounds bilaterally. Absent: respiratory distress - Cardiovascular Cardiovascular Exam: Present: regular rate, normal rhythm - GI/Abdominal GI/Abdominal exam: Present: soft. Absent: distended, tenderness - Extremities Exam Extremities exam: Present: normal inspection - Neurological Exam Neurological exam: Present: alert, oriented X3 - Psychiatric Psychiatric exam: Present: normal affect, normal mood - Skin Skin exam: Present: warm, dry, intact, normal color ED Course Vital Signs 11/04/20 11/04/20 11/04/20 14:22 14:45 15:15 Temperature 98.6 F Pulse Rate 72 73 68 Respiratory 14 13 15 Rate Blood Pressure 140/60 136/70 130/84 O2 Sat by Pulse 99 98 98 Oximetry 11/04/20 11/04/20 11/04/20 15:30 16:00 16:31 Temperature Pulse Rate 68 70 81 Respiratory 21 16 11 L Rate Blood Pressure 134/76 142/83 138/88 O2 Sat by Pulse 98 99 99 Oximetry 11/04/20 11/04/20 11/04/20 17:00 17:30 18:00 Temperature Pulse Rate 69 71 77 Respiratory 11 L 18 15 Rate Blood Pressure 139/78 131/76 138/72 O2 Sat by Pulse 98 98 98 Oximetry 11/04/20 11/04/20 11/04/20 18:30 18:41 18:51 Temperature Pulse Rate 73 80 79 Respiratory 15 21 19 Rate Blood Pressure 118/68 118/68 118/68 O2 Sat by Pulse 98 97 95 Oximetry 11/04/20 11/04/20 11/04/20 19:00 19:11 19:21 Temperature Pulse Rate 75 80 84 Respiratory 19 10 L 18 Rate Blood Pressure 125/64 125/64 125/64 O2 Sat by Pulse 96 98 99 Oximetry 11/04/20 11/04/20 11/04/20 19:31 19:41 19:51 Temperature Pulse Rate 85 72 67 Respiratory 21 18 20 Rate Blood Pressure 160/88 160/88 160/88 O2 Sat by Pulse 98 97 97 Oximetry 11/04/20 20:01 Temperature Pulse Rate 67 Respiratory 18 Rate Blood Pressure 114/60 O2 Sat by Pulse 97 Oximetry ANDREW score - Andrew Score Age > 65: (0) No Aspirin use within the Past 7 Days: (1) Yes 3 or more CAD Risk Factors: (1) Yes 2 or more Angina events in past 24 hrs: (1) Yes Known CAD with more than 50% Stenosis: (1) Yes Elevated Cardiac Markers: (0) No ST Deviation Greater than 0.5mm: (0) No ANDREW Score: 4 ED Medical Decision Making - Lab Data Result diagrams: 11/04/20 15:15 11/05/20 04:47 - EKG Data -: EKG Interpreted by Me EKG shows normal: sinus rhythm, axis, intervals, QRS complexes, ST-T waves Rate: normal - EKG Data Interpretation: no acute changes - Radiology Data Radiology results: report reviewed, image reviewed - Differential Diagnosis ACS, atypical chest pain, PNA Critical care attestation.: If time is entered above; I have spent that time in minutes in the direct care of this critically ill patient, excluding procedure time. ED Disposition Clinical Impression: Chest pain Disposition: DC-09 OP ADMIT IP TO THIS HOSP Is pt being admited?: Yes Condition: Stable Time of Disposition: 16:47
--- NOTE | 2020-11-04 15:16 | XRay Report ---
CHEST 1 VIEW 11/04/2020 3:01 PM INDICATION / CLINICAL INFORMATION: chest pain. COMPARISON: 11/11/2019 FINDINGS: SUPPORT DEVICES: None. HEART / MEDIASTINUM: Changes of prior median sternotomy are noted LUNGS / PLEURA: No significant pulmonary or pleural abnormality. No pneumothorax. ADDITIONAL FINDINGS: No significant additional findings. IMPRESSION: 1. No acute findings. Signer Name: Chuck Peres MD Signed: 11/04/2020 3:12 PM Workstation Name: [id number]
[2020-11-04] MEDS: NITROGLYCERIN 0.4 MG TAB SUBL SL ONE ×2 (15:17→15:25)
[2020-11-04 15:49] LABS: Basophils # (Auto) 0.1 K/mm3 (0.0-0.1); Basophils % (Auto) 0.9 % (0.0-1.8); Eosinophils # (Auto) 0.1 K/mm3 (0.0-0.4); Hematocrit 37.8 % (35.5-45.6); Lymphocytes # (Auto) 1.5 K/mm3 (1.2-5.4); Mean Corpuscular HGB Conc 35 % (32-34); Mean Corpuscular Volume 87 fl (84-94); Monocytes # (Auto) 0.5 K/mm3 (0.0-0.8); Monocytes % (Auto) 6.9 % (0.0-7.3); Platelet Count 253 K/mm3 (140-440); Red Blood Count 4.36 M/mm3 (3.65-5.03); Red Cell Distribution Width 15.1 % (13.2-15.2)
[2020-11-04 15:58] LABS: INR 0.96 (0.87-1.13)
[2020-11-04 15:59] LABS: Partial Thromboplastin Time 24.3 Sec. (24.2-36.6)
[2020-11-04 16:09] LABS: Alanine Aminotransferase 22 units/L (7-56); Blood Urea Nitrogen 12 mg/dL (9-20); Calcium 9.2 mg/dL (8.4-10.2); Hemolysis Index 17
[2020-11-04 16:25] LABS: BUN/Creatinine Ratio 17
[2020-11-04] MEDS ORDERED: MORPHINE 2 MG/1 ML INJ IV ONE (16:28)
[2020-11-04] MEDS ORDERED: ONDANSETRON 4 MG/2 ML INJ ONE (16:28)
[2020-11-04] MEDS ORDERED: MORPHINE 4 MG/1 ML INJ ONE (16:28)
[2020-11-04] MEDS ORDERED: ONDANSETRON 4 MG/2 ML INJ IV ONE (16:28)
--- NOTE | 2020-11-04 21:37 | History and Physical Report ---
History of Present Illness Date of examination: 11/04/20 Date of admission: 11/04/20 17:32 Chief complaint: Chest pain since 6 AM History of present illness: 55-year-old male with history of hypertension and coronary artery disease and hyperlipidemia comes in for left-sided chest pain pressure-like nature from 6 AM. Patient woke up with chest pain. Patient took a nitro which did not relieve his pain. Patient reports recurrence of pain at 6 AM in the afternoon. No nausea no vomiting no shortness of breath. Chest pain is localized. Nonradiating. No diaphoresis or shortness of breath. Patient had CABG in 2016. In May 2019 patient had a stent placed secondary to an occluded graft from his CABG CABG. Patient stated he is no longer taking Plavix at this time. 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 Chest pain is intermittent. No exacerbating or relieving factors. Pain is about 6 on a scale of 1-10. - Past Medical History --Hypertension: Yes --CVA: Yes --Congestive Heart Failure: Yes Additional medical history: chronic back pain, sciatica - Surgical History Additional Surgical History: OPEN HEART SURGERY 2017 - Social History Smoking Status: Never Smoker Substance Use Type: None --Family history Htn - Medications Home Medications: Home Medications Medication Instructions Recorded Confirmed Last Taken Type Acetaminophen [Acetaminophen TAB] 1 tab PO Q6H PRN #15 tablet 08/26/19 Unknown Rx Aspirin [Aspirin BABY CHEW TAB] 81 mg PO QDAY #30 tab.chew 08/26/19 Unknown Rx AtorvaSTATin [Lipitor] 2 tab PO QHS #60 tablet 08/26/19 Unknown Rx Clopidogrel [Plavix] 75 mg PO QDAY #30 tablet 08/26/19 Unknown Rx Gabapentin [Neurontin] 800 mg PO TID #90 tablet 08/26/19 Unknown Rx HYDROcodone/APAP 10-325 [[place] 1 each PO Q4H PRN #20 tablet 08/26/19 Unknown Rx 10-325 mg TAB] ISOSORBIDE MONOnitrate [Imdur ER] 30 mg PO DAILY #30 tab.er.24h 08/26/19 Unknown Rx Losartan [Cozaar] 50 mg PO QDAY #30 tablet 08/26/19 Unknown Rx Metoprolol [Lopressor TAB] 50 mg PO BID 30 Days #60 tablet 08/26/19 Unknown Rx amLODIPine 5 mg PO QDAY #30 tablet 08/26/19 Unknown Rx tiZANidine [Zanaflex 4mg TAB] 4 mg PO QHS #30 tablet 08/26/19 08/24/19 08/23/19 Rx Review of Systems ROS: Constitutional no weight loss or weight gain no fever or chills HEENT no sore throat no post nasal drip no diplopia Neck no neck stiffness no lymph gland enlargement Chest and lungs chest pain since a.m. CVS no chest pain no diaphoresis no palpitations GI no nausea no vomiting no diarrhea Genitourinary system no dysuria no flank pain Musculoskeletal system no muscle pains no joint pains SHACTOR no syncope no seizures Skin no rash no itching Psychiatric no depression no homicidal or suicidal tendencies Hematologic no lymphedema or bruising Endocrine no polydipsia no polyuria no cold intolerance no heat intolerance Medications and Allergies Allergies Allergy/AdvReac Type Severity Reaction Status Date / Time No Known Allergies Allergy Verified 02/04/19 16:38 Home Medications Medication Instructions Recorded Confirmed Last Taken Type Acetaminophen [Acetaminophen TAB] 1 tab PO Q6H PRN #15 tablet 08/26/19 11/04/20 11/04/20 Rx 40 mg Aspirin [Aspirin BABY CHEW TAB] 81 mg PO QDAY #30 tab.chew 08/26/19 11/04/20 11/04/20 Rx 40 mg AtorvaSTATin [Lipitor] 2 tab PO QHS #60 tablet 08/26/19 11/04/20 11/04/20 08:00 Rx Clopidogrel [Plavix] 75 mg PO QDAY #30 tablet 08/26/19 11/04/20 11/04/20 Rx 75 mg Gabapentin [Neurontin] 800 mg PO TID #90 tablet 08/26/19 11/04/20 11/04/20 Rx 800 mg HYDROcodone/APAP 10-325 [[place] 1 each PO Q4H PRN #20 tablet 08/26/19 11/04/20 11/04/20 Rx 10-325 mg TAB] 30 mg ISOSORBIDE MONOnitrate [Imdur ER] 30 mg PO DAILY #30 tab.er.24h 08/26/19 11/04/20 11/04/20 Rx 30 mg Losartan [Cozaar] 50 mg PO QDAY #30 tablet 08/26/19 11/04/20 11/04/20 Rx 50 mg Metoprolol [Lopressor TAB] 50 mg PO BID 30 Days #60 tablet 08/26/19 11/04/20 11/04/20 Rx 50 mg amLODIPine 5 mg PO QDAY #30 tablet 08/26/19 11/04/20 11/04/20 Rx 5 mg tiZANidine [Zanaflex 4mg TAB] 4 mg PO QHS #30 tablet 08/26/19 11/04/20 11/03/20 Rx 4 mg Exam - Constitutional Vitals: Temp Pulse Resp BP Pulse Ox 98.6 F 73 15 118/68 98 11/04/20 14:22 11/04/20 18:30 11/04/20 18:30 11/04/20 18:30 11/04/20 18:30 General appearance: Present: no acute distress, well-nourished - EENT Eyes: Present: PERRL ENT: hearing intact, clear oral mucosa - Neck Neck: Present: supple, normal ROM - Respiratory Respiratory effort: normal Respiratory: bilateral: CTA - Cardiovascular Heart rate: 78 Rhythm: regular Heart Sounds: Present: S1 & S2. Absent: rub, click - Extremities Extremities: pulses symmetrical, No edema Peripheral Pulses: within normal limits - Abdominal General gastrointestinal: Present: soft, non-tender, non-distended, normal bowel sounds Male genitourinary: Present: normal - Rectal Rectal Exam: deferred - Integumentary Integumentary: Present: clear, warm, dry - Musculoskeletal Musculoskeletal: gait normal, strength equal bilaterally - Psychiatric Psychiatric: appropriate mood/affect, intact judgment & insight - Neurologic Neurologic: CNII-XII intact, moves all extremities - Allied Health Allied health notes reviewed: nursing, case management HEART Score - HEART Score History: Highly suspicious EKG: Non-specific Age: 45-65 Risk factors: > 3 risk factors or hx of atherosclerotic disease Troponin: Troponin T < 0.010 ng/mL (0.00-0.029) 11/04/20 19:56 Troponin: 1-3x normal limit HEART Score: 7 - Critical Actions Critical Actions: 4-6 pts:12-16.6% risk of adverse cardiac event. Should be admitted Results - Labs CBC & Chem 7: 11/04/20 15:15 11/04/20 15:15 Labs: Laboratory Last Values WBC 7.5 K/mm3 (4.5-11.0) 11/04/20 15:15 RBC 4.36 M/mm3 (3.65-5.03) 11/04/20 15:15 Hgb 13.0 gm/dl (11.8-15.2) 11/04/20 15:15 Hct 37.8 % (35.5-45.6) 11/04/20 15:15 MCV 87 fl (84-94) 11/04/20 15:15 MCH 30 pg (28-32) 11/04/20 15:15 MCHC 35 % (32-34) H 11/04/20 15:15 RDW 15.1 % (13.2-15.2) 11/04/20 15:15 Plt Count 253 K/mm3 (140-440) 11/04/20 15:15 Lymph % (Auto) 20.0 % (13.4-35.0) 11/04/20 15:15 [place] % (Auto) 6.9 % (0.0-7.3) 11/04/20 15:15 Eos % (Auto) 2.0 % (0.0-4.3) 11/04/20 15:15 Baso % (Auto) 0.9 % (0.0-1.8) 11/04/20 15:15 Lymph # (Auto) 1.5 K/mm3 (1.2-5.4) 11/04/20 15:15 [place] # (Auto) 0.5 K/mm3 (0.0-0.8) 11/04/20 15:15 Eos # (Auto) 0.1 K/mm3 (0.0-0.4) 11/04/20 15:15 Baso # (Auto) 0.1 K/mm3 (0.0-0.1) 11/04/20 15:15 Seg Neutrophils % 70.2 % (40.0-70.0) H 11/04/20 15:15 Seg Neutrophils # 5.2 K/mm3 (1.8-7.7) 11/04/20 15:15 PT 12.6 Sec. (12.2-14.9) 11/04/20 15:15 INR 0.96 (0.87-1.13) 11/04/20 15:15 APTT 24.3 Sec. (24.2-36.6) 11/04/20 15:15 Sodium 140 mmol/L (137-145) 11/04/20 15:15 Potassium 3.8 mmol/L (3.6-5.0) 11/04/20 15:15 Chloride 103.2 mmol/L (98-107) 11/04/20 15:15 Carbon Dioxide 30 mmol/L (22-30) 11/04/20 15:15 Anion Gap 11 mmol/L 11/04/20 15:15 BUN 12 mg/dL (9-20) 11/04/20 15:15 Creatinine 0.7 mg/dL (0.8-1.3) L 11/04/20 15:15 Estimated GFR > 60 ml/min 11/04/20 15:15 BUN/Creatinine Ratio 17 % 11/04/20 15:15 Glucose 94 mg/dL (75-100) 11/04/20 15:15 Calcium 9.2 mg/dL (8.4-10.2) 11/04/20 15:15 Total Bilirubin 0.20 mg/dL (0.1-1.2) 11/04/20 15:15 AST 13 units/L (5-40) 11/04/20 15:15 ALT 22 units/L (7-56) 11/04/20 15:15 Alkaline Phosphatase 77 units/L (35-129) 11/04/20 15:15 Troponin T < 0.010 ng/mL (0.00-0.029) 11/04/20 19:56 Total Protein 6.5 g/dL (6.3-8.2) 11/04/20 15:15 Albumin 4.0 g/dL (3.9-5) 11/04/20 15:15 Albumin/Globulin Ratio 1.6 % 11/04/20 15:15 Short CBC 11/04/20 Range/Units 15:15 WBC 7.5 (4.5-11.0) K/mm3 Hgb 13.0 (11.8-15.2) gm/dl Hct 37.8 (35.5-45.6) % Plt Count 253 (140-440) K/mm3 BMP 11/04/20 15:15 Sodium 140 Potassium 3.8 Chloride 103.2 Carbon Dioxide 30 BUN 12 Creatinine 0.7 L Glucose 94 Calcium 9.2 Cardiac Enzymes 11/04/20 11/04/20 Range/Units 15:15 19:56 Troponin T < 0.010 < 0.010 (0.00-0.029) ng/mL Liver Function 11/04/20 Range/Units 15:15 Total Bilirubin 0.20 (0.1-1.2) mg/dL AST 13 (5-40) units/L ALT 22 (7-56) units/L Alkaline Phosphatase 77 (35-129) units/L Albumin 4.0 (3.9-5) g/dL - Imaging and Cardiology EKG: report reviewed (Sinus rhythm, heart rate of 69/min no acute ST-T wave changes LVH criteria present) Al/IV: IV Catheter Type [Right Peripheral IV Forearm] IV Catheter Type [Left Hand] Peripheral IV Assessment and Plan Advance Directives: Yes (Full code) VTE prophylaxis?: Chemical Plan of care discussed with patient/family: Yes - Patient Problems (1) Acute coronary syndrome Current Visit: No Status: Acute Plan to address problem: Serial serial troponins and Lexiscan in the morning Patient has a strong coronary artery disease with CABG and stent placement in th e re stenosed bypass arteries. (2) CAD (coronary artery disease) Current Visit: No Status: Chronic Qualifiers: Coronary Disease-Associated Artery/Lesion type: bypass graft, autologous vein Associated angina: without angina Qualified Code(s): I25.810 - Atherosclerosis of coronary artery bypass graft(s) without angina pectoris Plan to address problem: Continue aspirin and isosorbide mononitrate. Include Plavix (3) HTN (hypertension) Current Visit: No Status: Chronic Qualifiers: Plan to address problem: Continue antihypertensives and adjust medications as necessary (4) Hyperlipidemia Current Visit: Yes Status: Chronic Qualifiers: Hyperlipidemia type: mixed hyperlipidemia Qualified Code(s): E78.2 - Mixed hyperlipidemia Plan to address problem: Continue statins (5) DVT prophylaxis Current Visit: No Status: Acute Plan to address problem: 1 heparin and GI prophylaxis
[2020-11-04] MEDS ORDERED: ACETAMINOPHEN 325 MG TAB PO PRN ×2 (21:41→21:43)
[2020-11-04] MEDS ORDERED: ONDANSETRON 4 MG/2 ML INJ IV PRN (21:43)
[2020-11-04] MEDS ORDERED: METOCLOPRAMIDE 10 MG/2 ML INJ IV PRN (21:43)
[2020-11-04] MEDS ORDERED: tiZANidine TAB 4 MG TAB PO SCH (22:00)
[2020-11-04] MEDS: amLODIPine 5 MG TAB PO SCH (22:29)
[2020-11-04] MEDS: CLOPIDOGREL 75 MG TAB PO SCH (22:29)
[2020-11-04] MEDS: FAMOTIDINE 20 MG TAB PO SCH (22:29)
[2020-11-04] MEDS: HEPARIN 5,000 UNIT/1 ML VIAL SUB-Q SCH (22:30)
[2020-11-04] MEDS: METOPROLOL TARTRATE 50 MG TAB PO SCH (22:31)
[2020-11-04] MEDS: HYDROcodone/ACETAMINOPHEN 10-325MG TAB PO PRN (22:33)
[2020-11-05] MEDS: HYDROmorphone 1 MG/1 ML INJ IV PRN ×3 (01:03→10:21)
[2020-11-05 07:48] LABS: Alanine Aminotransferase 37 units/L (7-56); Albumin 3.8 g/dL (3.9-5); Blood Urea Nitrogen 12 mg/dL (9-20); Calcium 8.9 mg/dL (8.4-10.2); Hemolysis Index 27
[2020-11-05] MEDS ORDERED: NON-FORMULARY EACH (Gabapentin [Neurontin] 800 MG Tablet) PO SCH (08:00)
[2020-11-05] MEDS: GABAPENTIN 400 MG CAP PO SCH ×2 (08:20→13:39)
[2020-11-05 08:36] LABS: BUN/Creatinine Ratio 17
[2020-11-05] MEDS ORDERED: REGADENOSON 0.4 MG/5 ML INJ IV ONE (08:49)
--- NOTE | 2020-11-05 09:25 | Consultation ---
History of Present Illness Consult date: 11/05/20 Requesting physician: CHARLES MADRIGAL Consult reason: other (ACS) History of present illness: The pt is a 55 yo male with a past medical history of CAD s/p 3 vessel CABG December 2017 at [facility], stented coronary artery, HTN, HFpEF. He has been seen by our practice on prior hospitalizations, noncompliant with OP follow up. He presents with c/o chest pain for several days prior to arrival. He describes his chest pain as an intermittent, nonexertional, nonradiating left- sided pressure. There are no clear aggravating or alleviating factors. The pt denies any SOB, palpitations, n/v, diaphoresis, dizziness or syncope. Pt underwent lexiscan MPI stress 01/2019 which was negative for ischemia, EF 62%. LHC done 09/2019 showed patent LIMON to LAD, patent SVG to OM1, RCA prox mid stent widely patent, normal LV function. tte done 05/2019 showed EF 50-55%, impaired relaxation, RV mildly dilated. Past History Past Medical History: other (as per HPI) Past Surgical History: CABG Medications and Allergies Allergies Allergy/AdvReac Type Severity Reaction Status Date / Time No Known Allergies Allergy Verified 02/04/19 16:38 Home Medications Medication Instructions Recorded Confirmed Last Taken Type Acetaminophen [Acetaminophen TAB] 1 tab PO Q6H PRN #15 tablet 08/26/19 11/04/20 11/04/20 Rx 40 mg Aspirin [Aspirin BABY CHEW TAB] 81 mg PO QDAY #30 tab.chew 08/26/19 11/04/20 11/04/20 Rx 40 mg AtorvaSTATin [Lipitor] 2 tab PO QHS #60 tablet 08/26/19 11/04/20 11/04/20 08:00 Rx Clopidogrel [Plavix] 75 mg PO QDAY #30 tablet 08/26/19 11/04/20 11/04/20 Rx 75 mg Gabapentin [Neurontin] 800 mg PO TID #90 tablet 08/26/19 11/04/20 11/04/20 Rx 800 mg HYDROcodone/APAP 10-325 [[place] 1 each PO Q4H PRN #20 tablet 08/26/19 11/04/20 11/04/20 Rx 10-325 mg TAB] 30 mg ISOSORBIDE MONOnitrate [Imdur ER] 30 mg PO DAILY #30 tab.er.24h 08/26/19 11/04/20 11/04/20 Rx 30 mg Losartan [Cozaar] 50 mg PO QDAY #30 tablet 08/26/19 11/04/20 11/04/20 Rx 50 mg Metoprolol [Lopressor TAB] 50 mg PO BID 30 Days #60 tablet 08/26/19 11/04/20 11/04/20 Rx 50 mg amLODIPine 5 mg PO QDAY #30 tablet 08/26/19 11/04/20 11/04/20 Rx 5 mg tiZANidine [Zanaflex 4mg TAB] 4 mg PO QHS #30 tablet 08/26/19 11/04/20 11/03/20 Rx 4 mg Active Meds: Active Medications Acetaminophen (Acetaminophen 325 Mg Tab) 650 mg PO Q4H PRN PRN Reason: Pain MILD(1-3)/Fever >100.5/CESPEDES Hydrocodone Bitart/Acetaminophen (Hydrocodone/Acetaminophen 10-325mg Tab) 1 each PO Q4H PRN PRN Reason: Pain , Severe (7-10) Last Admin: 11/04/20 22:33 Dose: 1 each Documented by: Amlodipine Besylate (Amlodipine 5 Mg Tab) 5 mg PO QDAY [facility] Last Admin: 11/04/20 22:29 Dose: 5 mg Documented by: Aspirin (Aspirin 81 Mg Tab Chew) 81 mg PO QDAY [facility] Atorvastatin Calcium (Atorvastatin 40 Mg Tab) 80 mg PO QHS [facility] Last Admin: 11/04/20 22:28 Dose: 80 mg Documented by: Clopidogrel Bisulfate (Clopidogrel 75 Mg Tab) 75 mg PO QDAY [facility] Last Admin: 11/04/20 22:29 Dose: 75 mg Documented by: Famotidine (Famotidine 20 Mg Tab) 20 mg PO BID [facility] Last Admin: 11/04/20 22:29 Dose: 20 mg Documented by: Gabapentin (Gabapentin 400 Mg Cap) 800 mg PO TID [facility] Heparin Sodium (Porcine) (Heparin 5,000 Unit/1 Ml Vial) 5,000 unit SUB-Q Q12HR [facility] Last Admin: 11/04/20 22:30 Dose: 5,000 unit Documented by: Hydromorphone HCl (Hydromorphone 1 Mg/1 Ml Inj) 0.5 mg IV Q3H PRN PRN Reason: Pain , Severe (7-10) Last Admin: 11/05/20 05:14 Dose: 0.5 mg Documented by: Isosorbide Mononitrate (Isosorbide Mononitrate Er 30 Mg Tab) 30 mg PO DAILY [facility] Losartan Potassium (Losartan 50 Mg Tab) 50 mg PO QDAY [facility] Metoclopramide HCl (Metoclopramide 10 Mg/2 Ml Inj) 10 mg IV Q6H PRN PRN Reason: Nausea And Vomiting Metoprolol Tartrate (Metoprolol Tartrate 50 Mg Tab) 50 mg PO BID [facility] Last Admin: 11/04/20 22:31 Dose: 50 mg Documented by: Ondansetron HCl (Ondansetron 4 Mg/2 Ml Inj) 4 mg IV Q8H PRN PRN Reason: Nausea And Vomiting Sodium Chloride (Sodium Chloride 0.9% 10 Ml Flush Syringe) 10 ml IV BID [facility] Last Admin: 11/04/20 22:31 Dose: 10 ml Documented by: Sodium Chloride (Sodium Chloride 0.9% 10 Ml Flush Syringe) 10 ml IV PRN PRN PRN Reason: LINE FLUSH Tizanidine HCl (Tizanidine Tab 4 Mg Tab) 4 mg PO QHS [facility] Last Admin: 11/04/20 22:32 Dose: 4 mg Documented by: Review of Systems Constitutional: no weight loss, no weight gain, no fever, no chills, no sweats Ears, nose, mouth and throat: no ear pain, no nose pain, no sinus pressure, no sinus pain Cardiovascular: chest pain, no orthopnea, no palpitations, no rapid/irregular heart beat, no edema, no syncope, no lightheadedness, no shortness of breath, no dyspnea on exertion Respiratory: no cough, no shortness of breath, no dyspnea on exertion, no congestion, no wheezing, no pain on inspiration Gastrointestinal: no abdominal pain, no nausea, no vomiting, no diarrhea, no constipation, no change in bowel habits Genitourinary Male: no dysuria, no hematuria, no flank pain, no discharge, no urinary frequency, no urinary hesitancy Musculoskeletal: no neck stiffness, no neck pain, no shooting arm pain, no arm numbness/tingling, no low back pain, no shooting leg pain Integumentary: no rash, no pruritis, no redness, no sores, no wounds Neurological: no head injury, no paralysis, no weakness, no parathesias, no numbness, no tingling, no seizures, no syncope Psychiatric: no anxiety Endocrine: no cold intolerance, no heat intolerance Hematologic/Lymphatic: no easy bruising Allergic/Immunologic: no urticaria Physical Examination Vital Signs Temp Pulse Resp BP Pulse Ox 98.6 F 72 14 140/60 99 11/04/20 14:22 11/04/20 14:22 11/04/20 14:22 11/04/20 14:22 11/04/20 14:22 General appearance: no acute distress HEENT: Positive: PERRL, Normocephaly, Mucus Membranes Moist Neck: Positive: neck supple, trachea midline Cardiac: Positive: Reg Rate and Rhythm, S1/S2 Lungs: Positive: Decreased Breath Sounds Neuro: Positive: Grossly Intact Abdomen: Negative: Tender Skin: Negative: Rash Musculoskeletal: No Pain Extremities: Absent: edema Results 11/04/20 15:15 11/05/20 04:47 Cardiac Enzymes 11/04/20 11/05/20 Range/Units 15:15 04:47 AST 13 32 (5-40) units/L Coagulation 11/04/20 Range/Units 15:15 PT 12.6 (12.2-14.9) Sec. INR 0.96 (0.87-1.13) APTT 24.3 (24.2-36.6) Sec. CBC 11/04/20 Range/Units 15:15 WBC 7.5 (4.5-11.0) K/mm3 RBC 4.36 (3.65-5.03) M/mm3 Hgb 13.0 (11.8-15.2) gm/dl Hct 37.8 (35.5-45.6) % Plt Count 253 (140-440) K/mm3 Lymph # (Auto) 1.5 (1.2-5.4) K/mm3 [place] # (Auto) 0.5 (0.0-0.8) K/mm3 Eos # (Auto) 0.1 (0.0-0.4) K/mm3 Baso # (Auto) 0.1 (0.0-0.1) K/mm3 Comprehensive Metabolic Panel 11/04/20 11/05/20 Range/Units 15:15 04:47 Sodium 140 140 (137-145) mmol/L Potassium 3.8 4.0 (3.6-5.0) mmol/L Chloride 103.2 105.0 (98-107) mmol/L Carbon Dioxide 30 27 (22-30) mmol/L BUN 12 12 (9-20) mg/dL Creatinine 0.7 L 0.7 L (0.8-1.3) mg/dL Glucose 94 77 (75-100) mg/dL Calcium 9.2 8.9 (8.4-10.2) mg/dL AST 13 32 (5-40) units/L ALT 22 37 (7-56) units/L Alkaline Phosphatase 77 83 (35-129) units/L Total Protein 6.5 6.4 (6.3-8.2) g/dL Albumin 4.0 3.8 L (3.9-5) g/dL - Imaging and Cardiology Echo: report reviewed (05/2019 showed EF 50-55%, impaired relaxation, RV mildly dilated. ) Cardiac cath: report reviewed ( 09/2019 showed patent LIMON to LAD, patent SVG to OM1, RCA prox mid stent widely patent, normal LV function. ) EKG: report reviewed, image reviewed EKG interpretations - Telemetry EKG Rhythm: Sinus Rhythm - EKG Sinus rhythms and dysrhythmias: sinus rhythm Assessment and Plan AMI r/o. Chest pain currently resolved. S/p lexiscan MPI stress test today which was negative. Pt may discharge home from cardiology standpoint on present cardiac regimen. Recommend follow up in our office with Dr. Marinelli within 2 weeks ([phone]). The patient has been seen in conjunction with Dr. Marinelli who agrees with the assessment and plan of care. - Patient Problems (1) Chest pain Current Visit: Yes Status: Resolved (2) CAD (coronary artery disease) Current Visit: Yes Status: Chronic Qualifiers: Coronary Disease-Associated Artery/Lesion type: bypass graft, autologous vein (3) Stented coronary artery Current Visit: Yes Status: Chronic (4) S/P CABG (coronary artery bypass graft) Current Visit: Yes Status: Chronic (5) HTN (hypertension) Current Visit: Yes Status: Chronic Qualifiers: Hypertension type: essential hypertension Qualified Code(s): I10 - Essential (primary) hypertension
[2020-11-05] MEDS ORDERED: LOSARTAN 50 MG TAB PO SCH (10:00)
[2020-11-05] MEDS ORDERED: ASPIRIN 81 MG TAB CHEW PO SCH (10:00)
[2020-11-05] MEDS: amLODIPine 5 MG TAB PO SCH (10:23)
[2020-11-05] MEDS: METOPROLOL TARTRATE 50 MG TAB PO SCH (10:23)
[2020-11-05] MEDS: CLOPIDOGREL 75 MG TAB PO SCH (10:23)
[2020-11-05] MEDS: HEPARIN 5,000 UNIT/1 ML VIAL SUB-Q SCH (10:23)
[2020-11-05] MEDS: FAMOTIDINE 20 MG TAB PO SCH (10:24)
--- NOTE | 2020-11-05 10:49 | Treadmill Report ---
NUCLEAR PERFUSION STUDY REASON FOR STUDY: Chest pain. IMAGING PROTOCOL: Single isotope used documented as single isotope protocol. The patient received 10 mCi of Technetium 99m Tetrofosmin for resting image and 28 mCi of Technetium 99m Tetrofosmin for stress imaging. The imaging for the whole procedure was completed 30-90 minutes following the initial injection of Technetium 99m Tetrofosmin. The SPECT imaging in the 180 degree arc was performed in the right anterior oblique projection. Computerized reconstruction of the images was performed for analysis. IMAGING RESULTS: Normal cavity size from stress to rest. Normal distribution of radionuclide in the anterior, inferior, septal, and apical regions. Gated SPECT, EF of 58% with no wall motion abnormality. The patient infused Lexiscan, no EKG changes. SUMMARY: 1. Negative Lexiscan EKG. 2. Normal rest and stress myocardial perfusion scan. No significant ischemia. No enlargement. Gated SPECT, EF of 58%. JOB# [id number] MARIO/MYA
[2020-11-05] MEDS: HYDROcodone/ACETAMINOPHEN 10-325MG TAB PO PRN ×2 (13:39→17:28)
--- NOTE | 2020-11-05 15:38 | Discharge Summary ---
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 LHC done 09/2019 showed patent LIMON to LAD, patent SVG to OM1, RCA prox mid stent widely patent, normal LV function. tte done 05/2019 showed EF 50-55%, impaired relaxation, RV mildly dilated. AMI r/o. Chest pain currently resolved. S/p lexiscan MPI stress test today which was negative. Pt may discharge home 55-year-old male with history of hypertension and coronary artery disease and hyperlipidemia comes in for left-sided chest pain pressure-like nature from 6 AM. Patient woke up with chest pain. Patient took a nitro which did not relieve his pain. Patient reports recurrence of pain at 6 AM in the afternoon. No nausea no vomiting no shortness of breath. Chest pain is localized. Nonradiating. No diaphoresis or shortness of breath. Patient had CABG in 2016. In May 2019 patient had a stent placed secondary to an occluded graft from his CABG CABG. Patient stated he is no longer taking Plavix at this time. 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 Chest pain is intermittent. No exacerbating or relieving factors. Pain is about 6 on a scale of 1-10. - Patient Problems (1) Acute coronary syndrome Current Visit: No Status: Acute Plan to address problem: Lexiscan was negative Patient had extensive work-up in the past with left heart cath 1 year ago which showed patent LIMON to LAD. Patent SVG to OM1 (2) CAD (coronary artery disease) Current Visit: No Status: Chronic Qualifiers: Coronary Disease-Associated Artery/Lesion type: bypass graft, autologous vein Associated angina: without angina Qualified Code(s): I25.810 - Atherosclerosis of coronary artery bypass graft(s) without angina pectoris Plan to address problem: Continue aspirin and isosorbide mononitrate. Include Plavix (3) HTN (hypertension) Current Visit: No Status: Chronic Qualifiers: Plan to address problem: Continue antihypertensives and adjust medications as necessary (4) Hyperlipidemia Current Visit: Yes Status: Chronic Qualifiers: Hyperlipidemia type: mixed hyperlipidemia Qualified Code(s): E78.2 - Mixed hyperlipidemia Plan to address problem: Continue statins Disposition: TO HOME OR SELFCARE Time spent for discharge: 35 minutes - Discharge Diagnoses (1) Acute coronary syndrome Status: Acute (2) CAD (coronary artery disease) Status: Chronic Qualifiers: Coronary Disease-Associated Artery/Lesion type: bypass graft, autologous vein Associated angina: without angina Qualified Code(s): I25.810 - Atherosclerosis of coronary artery bypass graft(s) without angina pectoris (3) HTN (hypertension) Status: Chronic Qualifiers: (4) Hyperlipidemia Status: Chronic Qualifiers: Hyperlipidemia type: mixed hyperlipidemia Qualified Code(s): E78.2 - Mixed hyperlipidemia (5) DVT prophylaxis Status: Acute Core Measure Documentation - Palliative Care Palliative Care/ Comfort Measures: Not Applicable - Core Measures Any of the following diagnoses?: none Exam - Constitutional Vitals: Temp Pulse Resp BP Pulse Ox 97.3 F L 71 18 141/77 97 11/05/20 11:30 11/05/20 11:30 11/05/20 11:30 11/05/20 11:30 11/05/20 04:07 General appearance: Present: no acute distress, well-nourished - EENT Eyes: Present: PERRL ENT: hearing intact, clear oral mucosa - Neck Neck: Present: supple, normal ROM - Respiratory Respiratory effort: normal Respiratory: bilateral: CTA - Cardiovascular Heart rate: 78 Rhythm: regular Heart Sounds: Present: S1 & S2. Absent: rub, click - Extremities Extremities: pulses symmetrical, No edema Peripheral Pulses: within normal limits - Abdominal General gastrointestinal: Present: soft, non-tender, non-distended, normal bowel sounds Male genitourinary: Present: normal - Integumentary Integumentary: Present: clear, warm, dry - Musculoskeletal Musculoskeletal: gait normal, strength equal bilaterally - Psychiatric Psychiatric: appropriate mood/affect, intact judgment & insight - Neurologic Neurologic: CNII-XII intact, moves all extremities Plan Activity: no restrictions Diet: low salt Follow up with: CADEN HARP MD [Primary Care Provider] - 3-5 Days BREEZY BELTRÁN MD [Staff Physician] - 7 Days
[2020-11-05 18:44] VITALS: BP 130/76
== END 2020-11-05 18:30 | disposition home or self-care (01) ==
LOC: ED 14:03 → 4A 17:32 → 3A 18:28
PROVIDERS: ADMIT Internal Medicine; ATTEND Internal Medicine
DX: I24.9 Acute ischemic heart disease, unspecified (principal); I25.10 Atherosclerotic heart disease of native coronary artery without angina pectoris; I11.0 Hypertensive heart disease with heart failure; I50.9 Heart failure, unspecified; E78.5 Hyperlipidemia, unspecified; M54.30 Sciatica, unspecified side; Z98.890 Other specified postprocedural states; Z79.82 Long term (current) use of aspirin; Z95.1 Presence of aortocoronary bypass graft; Z79.899 Other long term (current) drug therapy
CPT/HCPCS: 36415; 71045; 78452; 80053; 83036; 84484; 85025; 85610; 85730; 93005; 93017; 96372; 96374; 96375; 96376; 99285; A9270; A9502; G0378; J1170; J1644; J2270; J2405; J2785

== ENCOUNTER 2020-11-08 12:02 | Emergency (ER) | payer MEDICARE ==
[2020-11-08] MEDS ORDERED: ASPIRIN 325 MG TAB PO ONE (12:26)
[2020-11-08 12:27] VITALS: BP 149/73
--- NOTE | 2020-11-08 12:49 | XRay Report ---
CHEST 2 VIEWS INDICATION / CLINICAL INFORMATION: Chest Pain. COMPARISON: 11/04/20. FINDINGS: SUPPORT DEVICES: None. HEART / MEDIASTINUM: Median sternotomy. Normal heart size and pulmonary vasculature. No evidence of a ortic aneurysm. LUNGS / PLEURA: No significant pulmonary or pleural abnormality. No pneumothorax. ADDITIONAL FINDINGS: No significant additional findings. IMPRESSION: No acute abnormality or significant change. Signer Name: Abram Sharif MD Signed: 11/08/2020 12:44 PM Workstation Name: [id number]
--- NOTE | 2020-11-08 13:57 | Event Note ---
ED Screening Note Date of service: 11/08/20 Time: 13:56 ED Screening Note: Patient complains of chest pain nausea and vomiting Was admitted here at [facility] 11/05/2020 with similar symptoms + Abnormal heart history This initial assessment/diagnostic orders/clinical plan/treatment(s) is/are subject to change based on patients health status, clinical progression and re- assessment by fellow clinical providers in the ED. Further treatment and workup at subsequent clinical providers discretion. Patient/guardian urged not to elope from the ED as their condition may be serious if not clinically assessed and managed. Initial orders include: Labs Chest x-ray EKG
[2020-11-08 14:27] LABS: Basophils % (Auto) 0.5 % (0.0-1.8); Eosinophils % (Auto) 0.6 % (0.0-4.3); Hematocrit 41.5 % (35.5-45.6); Hemoglobin 13.7 gm/dl (11.8-15.2); Lymphocytes # (Auto) 1.6 K/mm3 (1.2-5.4); Mean Corpuscular HGB Conc 33 % (32-34); Mean Corpuscular Volume 86 fl (84-94); Monocytes # (Auto) 0.5 K/mm3 (0.0-0.8); Platelet Count 264 K/mm3 (140-440); Red Blood Count 4.81 M/mm3 (3.65-5.03); Red Cell Distribution Width 15.7 % (13.2-15.2)
[2020-11-08 14:57] LABS: BUN/Creatinine Ratio 13; Blood Urea Nitrogen 10 mg/dL (9-20); Calcium 9.9 mg/dL (8.4-10.2); Hemolysis Index 4
[2020-11-08 14:58] LABS: Alanine Aminotransferase 23 units/L (7-56); Albumin 4.4 g/dL (3.9-5)
[2020-11-08 15:07] LABS: Bilirubin,Direct < 0.2 mg/dL (0-0.2)
== END 2020-11-08 13:56 | disposition left against medical advice (07) ==
LOC: ED 12:02
DX: R07.89 Other chest pain (principal); R11.2 Nausea with vomiting, unspecified; Z53.21 Procedure and treatment not carried out due to patient leaving prior to being seen by health care provider
CPT/HCPCS: 36415; 71046; 80048; 80076; 84484; 85025; 93005

== ENCOUNTER 2022-04-28 07:31 | Day surgery (SDC) | payer MEDICARE ==
[2022-04-28] MEDS ORDERED: ASPIRIN EC 325 MG TAB PO ONE (08:00)
[2022-04-28] MEDS ORDERED: HEPARIN 10,000 UNITS/10 ML VIAL ONE (08:21)
[2022-04-28] MEDS ORDERED: NITROGLYCERIN SYRINGE 0 ML ONE (08:22)
[2022-04-28] MEDS ORDERED: LIDOCAINE (2%) 20 MG/1 ML VIAL 50 ML MDV INFILTRATI ONE (08:22)
[2022-04-28] MEDS: SODIUM CHLORIDE 0.9% 500 ML 500 ML IV SCH ×2 (09:05→09:27)
[2022-04-28 09:14] LABS: Basophils % (Auto) 0.6 % (0.0-1.8); Eosinophils # (Auto) 0.2 K/mm3 (0.0-0.4); Eosinophils % (Auto) 2.7 % (0.0-4.3); Hematocrit 37.5 % (35.5-45.6); Hemoglobin 12.9 gm/dl (11.8-15.2); Lymphocytes # (Auto) 1.6 K/mm3 (1.2-5.4); Lymphocytes % (Auto) 22.1 % (13.4-35.0); Mean Corpuscular HGB Conc 34 % (32-34); Mean Corpuscular Volume 83 fl (84-94); Monocytes # (Auto) 0.6 K/mm3 (0.0-0.8); Monocytes % (Auto) 8.3 % (0.0-7.3); Platelet Count 209 K/mm3 (140-440); Red Blood Count 4.55 M/mm3 (3.65-5.03); Red Cell Distribution Width 14.4 % (13.2-15.2)
[2022-04-28 09:18] LABS: BUN/Creatinine Ratio 16; Blood Urea Nitrogen 14 mg/dL (9-20); Calcium 8.8 mg/dL (8.4-10.2); Hemolysis Index 10
[2022-04-28 09:23] LABS: INR 0.85 (0.87-1.13)
[2022-04-28] MEDS: fentaNYL 100 MCG/2 ML INJ ONE ×2 (09:26→09:29)
[2022-04-28] MEDS: LIDOCAINE (1%) 10 MG/1 ML VIAL 20 ML MDV ONE ×2 (09:26→09:30)
[2022-04-28] MEDS: MIDAZOLAM 2 MG/2 ML INJ ONE ×3 (09:26→09:39)
[2022-04-28] MEDS: HEPARIN/NS 5000 UNIT/500ML 1,000 ML IR ONE ×2 (09:28→09:30)
--- NOTE | 2022-04-28 10:22 | Cardiac Catherization Report ---
DATE OF PROCEDURE: 04/28/2022 CARDIAC CATHETERIZATION REFERRING PHYSICIAN: Dr. Peoples. INDICATIONS FOR PROCEDURE: The patient is a very pleasant 56-year-old gentleman who underwent bypass some 5 years ago, PCI of his right coronary 2 years ago continues to have some chest pain mostly at rest, abnormal stress test. Risks, benefits and alternatives discussed at length prior to obtaining informed consent. PROCEDURE IN DETAIL: The patient was brought to laborer wharf in a postabsorptive state, prepped and draped in sterile fashion. David's test in right hand is normal. 2 mL of 2% lidocaine used to anesthetize the right groin. A 5-Japanese hydrophilic sheath was used to cannulate the right radial artery via modified Seldinger technique. All exchanges performed to exchange a J-tip guidewire. JL3.5 catheter was used to engage the left main. No dampening or ventricularization. Cineangiography performed in multiple projections. JR4 catheter used to cross the aortic valve under fluoroscopic guidance. Left ventriculogram was performed in 30-degree MAHMOOD projection via hand injections, catheter flushed. Manual pullback performed with continuous pressure monitoring. Catheter used to engage the right coronary. No dampening or ventricularization. Cineangiography performed in all projections. Next, catheter used to engage the SVG to OM, angiography performed in all projections. Next, a SVG to right coronary is known to be occluded. Next, catheter used to engage the left subclavian. Due to tortuosity difficult to maneuver selective third order mid left subclavian angiography was performed. Next, we exchanged for a long exchange length J-tipped wire for an IM catheter. Selective BENNETT angiography was performed. ANGIOGRAPHY: Next, catheter was removed carefully over a wire. The sheath was removed. A manual pressure was maintained to achieve hemostasis. No complications. I directly supervised administration of fentanyl and Versed for moderate sedation from 9:29 a.m. to 9:53 a.m. No immediate complications. DATA: The patient remained in normal sinus rhythm throughout the procedure. CORONARY ANATOMY: This is a right dominant system. Left main without significant disease, bifurcates into left anterior descending, left circumflex: Proximal left circumflex is occluded. LAD is a moderate sized vessel with 50% proximal stenosis. Competitive flow in the LAD is noted. Left ventriculography reveals normal systolic performance, estimated ejection fraction 55-60%. The aortic pressure is 150/70, LV pressure is 150, LVEDP of 15 mmHg. No evidence of aortic stenosis. Right coronary is a moderate sized vessel, courses AV groove. Stents in the proximal right coronary are widely patent. No significant disease in this dominant right coronary with patent stents, SVG to OM is widely patent. No occlusive disease noted in the graft, again SVG to right coronary is known to be occluded, so left subclavian is tortuous, but without significant disease. No gradient on pullback. LIMON is widely patent to the mid LAD excellent flow. No disease. CONCLUSIONS: 1. Known severe triple vessel disease in this right dominant system with a 50% mid LAD stenosis, 100% chronic total occlusion of proximal left circumflex. Occluded SVG to right coronary, patent. Proximal right coronary stents without obstructive disease noted. 2. Patent SVG to OM. 3. Patent LIMON to LAD. 4. Normal left ventricular systolic performance, estimated ejection fraction 55-60%. 5. No evidence of aortic stenosis. 6. Normal LVEDP. 7. Patent left subclavian artery angiography. The patient is clinically stable. Would add Ranexa therapy for further chest pain. Continue optimal goal-directed medical therapy. Follow up with Dr. Peoples in the office. Standard groin care. Results of the procedure explained to the patient and family. All questions were addressed. The patient tolerated the procedure well without complication. TID: [id number] RECEIPT: [id number] [facility]
[2022-04-28] MEDS ORDERED: ONDANSETRON 4 MG/2 ML INJ IV PRN (10:59)
[2022-04-28] MEDS ORDERED: traMADol 50 MG TAB PO PRN (11:00)
[2022-04-28] MEDS ORDERED: HYDROcodone/ACETAMINOPHEN 5-325 MG TAB PO PRN (11:00)
--- NOTE | 2022-04-28 11:00 | Short Stay Summary ---
Short Stay Documentation Date of service: 04/28/22 - History H&P: obtained from office - Allergies and Medications Current Medications: Allergies No Known Allergies Allergy (Verified 02/04/19 16:38) Home Medications Medication Instructions Recorded Confirmed Last Taken Type Aspirin [Aspirin BABY CHEW TAB] 81 mg PO QDAY #30 tab.chew 08/26/19 04/28/22 04/27/22 Rx Metoprolol [Lopressor TAB] 50 mg PO BID #60 tablet 11/05/20 04/28/22 04/27/22 Rx Furosemide [Lasix] 40 mg PO DAILY 04/28/22 04/28/22 04/27/22 History Gabapentin 600 mg PO TID 04/28/22 04/28/22 04/27/22 History Losartan/Hydrochlorothiazide 1 each PO DAILY 04/28/22 04/28/22 04/27/22 History [Losartan-Hctz 100-25 mg Tab] Nitroglycerin [Nitro Dur] 0.4 mg SUBLINGUAL QID PRN 04/28/22 04/28/22 04/27/22 History Ondansetron [Zofran Odt] 4 mg PO Q8HR 04/28/22 04/28/22 04/27/22 History Pravastatin [Pravachol] 40 mg PO QHS 04/28/22 04/28/22 04/27/22 History Ranolazine ER [Ranexa ER] 500 mg PO BID 30 Days #60 04/28/22 Unknown Rx tab.er.12h traZODone [Desyrel] 50 mg PO QHS 04/28/22 04/28/22 04/27/22 History Active Medications Hydrocodone Bitart/Acetaminophen (Hydrocodone/Acetaminophen 5-325 Mg Tab) 1 each PO Q4H PRN PRN Reason: Pain, Moderate (4-6) Sodium Chloride (Nacl 0.9% 500 Ml) 500 mls @ 50 mls/hr IV DIRECT DOMITILA Stop: 04/28/22 17:59 Last Admin: 04/28/22 09:27 Dose: 0 mls Tramadol HCl (Tramadol 50 Mg Tab) 50 mg PO Q4H PRN PRN Reason: Pain, Mild (1-3) - Physical exam Integumentary: other (Dressing clean dry and intact with no signs of bleeding or hematoma) - Brief post op/procedure progress note Date of procedure: 04/28/22 Pre-op diagnosis: Coronary artery disease Post-op diagnosis: same Anesthesia: local Estimated blood loss: minimal - Hospital course Hospital course: Patient presents today for cardiac cath due to complaint of chest pain. Patient patient found to have known severe triple-vessel disease with open grafts. No indication for cardiac intervention. See full cath report for details. Patient to be discharged home and follow-up with Dr. Torre outpatient. Will initiate Ranexa 500 mg p.o. twice daily - Disposition Condition at discharge: Good Disposition: 01 HOME / SELF CARE / HOMELESS - Discharge Diagnoses (1) CAD (coronary artery disease) Status: Chronic Qualifiers: Coronary Disease-Associated Artery/Lesion type: bypass graft, autologous vein Associated angina: without angina Qualified Code(s): I25.810 - Atherosclerosis of coronary artery bypass graft(s) without angina pectoris (2) HTN (hypertension) Status: Chronic (3) Hyperlipemia, mixed Status: Chronic (4) S/P CABG (coronary artery bypass graft) Status: Chronic (5) Stented coronary artery Status: Chronic Short Stay Discharge Plan Activity: advance as tolerated Diet: low fat, low cholesterol, low salt Wound: keep clean and dry, per your surgeon's advice Follow up with: PRIMARY CARE, [Primary Care Provider] - 7 Days CATALINO TORRE MD [Staff Physician] - 05/12/22 9:30 am (Patient has a follow-up appoint with Dr. Torre, [facility] geological specialist, 05/12/2022 at 9:30 AM at our [place] location. Phone #[phone]) Prescriptions: Ranolazine ER [Ranexa ER] 500 mg PO BID 30 Days #60 tab.er.12h
[2022-04-28] MEDS ORDERED: ONDANSETRON 4 MG/2 ML INJ ONE (11:07)
[2022-04-28 14:30] VITALS: BP 135/68
--- NOTE | 2022-04-29 10:02 | Electrocardiograph Report ---
[facility] Test Date: 2022-04-28 Test Time: 08:45:36 Pat Name: TANNA FONTANEZ Department: Room: Gender: M Pure [employer] Operator: MICHAEL : 1965 Requested By: URIAH MULLIGAN Order Number: [id number] Reading MD: Uriah Mulligan Measurements Intervals [place] Rate: 54 P: 64 NC: 148 QRS: 36 QRSD: 109 T: 22 QT: 459 QTc: 435 Interpretive Statements Sinus rhythm No previous ECG available for comparison Electronically Signed On 04-29-2022 10:02:34 EDT by Uriah Mulligan
== END 2022-04-28 14:15 | disposition home or self-care (01) ==
LOC: CATHLABREC 07:31
PROVIDERS: ATTEND Internal Medicine
DX: R07.89 Other chest pain (principal); R94.39 Abnormal result of other cardiovascular function study; R07.2 Precordial pain; I25.110 Atherosclerotic heart disease of native coronary artery with unstable angina pectoris; I11.0 Hypertensive heart disease with heart failure; I50.9 Heart failure, unspecified; E78.2 Mixed hyperlipidemia; E05.90 Thyrotoxicosis, unspecified without thyrotoxic crisis or storm; Z95.1 Presence of aortocoronary bypass graft; Z95.5 Presence of coronary angioplasty implant and graft; Z98.890 Other specified postprocedural states; Z79.899 Other long term (current) drug therapy; Z79.82 Long term (current) use of aspirin; Z82.49 Family history of ischemic heart disease and other diseases of the circulatory system; Z86.73 Personal history of transient ischemic attack (TIA), and cerebral infarction without residual deficits; Z86.79 Personal history of other diseases of the circulatory system
CPT/HCPCS: 36415; 80048; 85025; 85610; 93005; 93459; 99156; 99157; J1644; J2250; J2405; J3010; J3490; J7040; 96374; J1815; Q9967